=== PATIENT | male | born 1940 | race Caucasian/White ===

== ENCOUNTER 2018-03-23 11:11 | Outpatient (REF) | payer MEDICARE, OTHER, SELFPAY ==
[2018-03-23 13:39] LABS: Bilirubin Negative (Negative); Blood Negative (Negative); Clarity Clear; Glucose Negative (Negative); Ketones Negative (Negative); Leukocyte Esterase Negative (Negative); Nitrite Negative (Negative); Specific Gravity 1.015 (1.005-1.025); Urobilinogen 0.2 EU/dL (Up TO 0.2); pH 7.5 (5-8)
== END 2018-03-23 11:31 ==
LOC: LBN 11:11
PROVIDERS: PCP General Practice; Visit Provider General Practice
DX: N39.0 Urinary tract infection, site not specified (principal)
CPT/HCPCS: 81003; 87086

== ENCOUNTER 2018-06-11 00:10 | Outpatient (CLI) | payer MEDICARE, OTHER, SELFPAY ==
[2018-06-11 10:22] LABS: CREATININE 1.11 mg/dL (0.70-1.30)
[2018-06-11] MEDS: Gadoterate meglumine 20 ML VIAL 10 ML IVP (11:08)
--- NOTE | 2018-06-11 11:18 | DI.MRI_ITS ---
SYMPTOM/DIAGNOSIS: RADIATING PAIN, RT LOWER EXTREMITY, R52 LUMBAR SPINE MRI: Comparison is made with 11/16/15. T 1, T 2 and STIR sagittal, T 1 and T 2 axial and pre and post contrast Dotarem fat suppressed T 1 axial and sagittal sequences were performed. The exam is limited by patient motion. There are no abnormal areas of enhancement post Dotarem. The conus medullaris appears intact. The marrow signal is normal. Old mild compression deformities are again noted at T 11 and T 12. There is severe loss of disc height and prominent endplate osteophytes at L 1-2. There is severe neural foraminal narrowing. At L 2-3, there is a right sided disc protrusion, similar to the previous exam. There is severe bilateral neural foraminal narrowing secondary to a combination of degenerative disc changes and facet degenerative changes. There is severe loss of disc height and prominent broad based endplate osteophytes at L 3-4. Facet degenerative changes combine with the degenerative disc changes to produce severe bilateral neural foraminal narrowing and mild central canal stenosis. Broad based disc bulging and prominent facet degenerative changes are noted at L 4-5, causing severe neural foraminal narrowing. There is moderate central canal stenosis. At L 5-S 1, the disc shows mild bulging. Facet degenerative changes cause bilateral neural foraminal encroachment. IMPRESSION: Severe multi level neural foraminal narrowing secondary to a combination of degenerative disc changes and facet degenerative changes. Stable right sided disc herniation at L 2-3.
== END 2018-06-11 00:30 ==
PROVIDERS: PCP General Practice; Visit Provider General Practice
DX: M79.661 Pain in right lower leg (principal); M51.17 Intervertebral disc disorders with radiculopathy, lumbosacral region; Z13.89 Encounter for screening for other disorder
CPT/HCPCS: 36415; 72158; 82565

== ENCOUNTER 2018-07-11 09:31 | Outpatient (CLI) | payer MEDICARE, OTHER, SELFPAY ==
--- NOTE | 2018-07-11 06:00 | DI.RAD_ITS ---
SYMPTOMS/DIAGNOSIS: LUMBAR RADICULOPATHY, TRANSFORAMINAL EPIDURAL STEROID INJECTION C-ARM FLUOROSCOPY: Fluoroscopy Time: 30.9sec, 14.5mgy C-arm fluoroscopy was utilized by Dr. Vizcaino during reported epidural steroid injection. Hardcopy shows needle placement posteriorly at the L 5 - S 1 level.
[2018-07-11 09:46] VITALS: BP 144/84; PULSE 69; RESP 18; TEMP 36.8; O2SAT 97
--- NOTE | 2018-07-11 10:41 | PDOC.PAIN ---
Pain Clinic Procedure Note Current Active Problems Problem Status Onset Lumbar back pain with radiculopathy affecting left lower extremity Chronic EPIDURAL STEROID WITH CATHETER INJECTION PROCEDURE NOTE COMMENTS: Back and lower extremity pain to his feet bilaterally. He recently had an MRI which showed severe multilevel neural foraminal narrowing. This is worse at the L4-5 level. He has had previous back surgery by Dr. Shepard. He previously had a transforaminal injection in 2017 recall. He did have sedation at that time. LINDA CAO has been referred to the [facility] for lumbar epidural steroid injection. Patient was greeted by the nurse who verified patients name and . Patient was then taken to the fluoroscopy suite. Patient was interviewed and the medical record reviewed. There were no medical, pharmacologic, radiographic, or other structural contraindications to attempting fluoroscopically guided lumbar epidural steroid injection. Risks and expected side effects as well as potential benefits of the procedure were reviewed and voiced concerns addressed. The patient consent form was signed and witnessed. Standard time-out procedure was performed. Patient was placed in the prone position on the fluoroscopy table and automated blood pressure cuff and pulse oximeter applied. The skin entry point for entering/approaching the epidural space by a {L5-S1} and marked. Following thorough chlorhexadine preparation of the skin and draping and 1% lidocaine infiltration of the skin entry point and subcutaneous tissues, a 17 gauge Touhy needle was placed under fluoroscopic guidance and with loss of resistance technique into the epidural space. Needle tip placement and depth were aided and confirmed by fluoroscopy. There was no paresthesia or return of blood or CSF through the needle. 1/2 ml omnipaque 240 was injected and the patient experienced severe pain. He then yelled for which I did. Neurologically he was intact. The procedure was aborted. Vital signs were stable throughout the procedure and were as recorded in nursing records. Follow up plans and appointments were discussed.Post procedure instruction was given as documented in nursing records and having met discharge criteria and was discharged from the [facility]. COMMENTS: I brought the patient into my office. I offered to repeat this using sedation. He said this did not work last time and that the also remembers screaming during the procedure. Patient was not very anxious and hyperventilating. He is planning on seeing Dr. Shepard months to consider surgery. If he does not have surgery we would have to try the injection again with sedation is unclear if he would be able to tolerate it. He appeared to be having a panic attack. I did call Dr. Villagomez, his PCP as well as Dr. Shepard to see if he can get in sooner. I have ordered a Medrol Dosepak for him in the meantime. He does not tolerate gabapentin and opioids do not work. He was brought to the area to monitor.
[2018-07-11 10:48] VITALS: BP 169/90; PULSE 75; RESP 22; O2SAT 99
[2018-07-11] MEDS: Omnipaque 240 MG/ML 50 ML BTL IJ (10:54)
[2018-07-11 11:00] VITALS: BP 183/93; PULSE 72; RESP 28; O2SAT 98
[2018-07-11] MEDS: Lidocaine 1% Pres-Free 5 ML VIAL IJ (11:04)
[2018-07-11 11:05] VITALS: BP 171/93; PULSE 66; RESP 24; O2SAT 100
[2018-07-11 11:10] VITALS: BP 175/87; PULSE 68; RESP 28; O2SAT 99
[2018-07-11 11:20] VITALS: BP 167/86; PULSE 63; RESP 28; O2SAT 100
== END 2018-07-11 09:51 ==
PROVIDERS: PCP General Practice; Visit Provider Anesthesiology Pain Medicine
DX: M54.16 Radiculopathy, lumbar region (principal); G89.29 Other chronic pain; Z53.09 Procedure and treatment not carried out because of other contraindication; F41.9 Anxiety disorder, unspecified; M54.5 Low back pain
CPT/HCPCS: 62323; 72100; J7509; Q9967

== ENCOUNTER 2018-07-11 11:24 | Emergency (ER) | payer MEDICARE, OTHER, SELFPAY ==
[2018-07-11 11:27] VITALS: BP 179/77; PULSE 66; RESP 24; TEMP 36.4; O2SAT 99
[2018-07-11 11:35] VITALS: O2SAT 99
--- NOTE | 2018-07-11 11:35 | W.ED.GENAD ---
Discharge Plan Disposition Patient Disposition: HOME Condition: Improving Discharge Details Chief Complaint: Headache Clinical Impression: Acute exacerbation of chronic low back pain, Acute stress reaction Primary Care Provider: Johnathon Villagomez ED Provider: Raul Beckford Home Meds and New Rx's Prescriptions: Continued ranitidine HCl 150 MG capsule 150 mg PO DAILY RF: 0 ibuprofen 200 MG tablet 800 mg PO QID PRNRF: 0 tamsulosin [Flomax] 0.4 MG capsule 0.4 mg PO QAM RF: 0 allopurinol 300 MG tablet 300 mg PO QAM RF: 0 donepezil [Aricept] 10 mg Tablet 10 mg PO DAILY RF: 0 sertraline [Zoloft] 100 mg Tablet 100 mg PO DAILY RF: 0 docusate sodium [Colace] 100 mg Capsule 100 mg PO DAILY RF: 0 aspirin 81 mg Tablet,Chewable 81 mg PO DAILY RF: 0 hydrochlorothiazide 25 mg Tablet 25 mg PO DAILY RF: 0 acetaminophen [Tylenol Extra Strength] 500 mg Tablet 1,000 mg PO DAILY RF: 0 Discharge Instructions Instructions: Low Back Strain (ED), Anxiety (ED) Additional Instructions: Please pickle sorter and begin the Medrol dose pack that was prescribed by Dr Vizcaino. Please followup with Dr Shepard in clinic. Home to rest today. Return for any acute concern. Discharge Data Discharge Date/Time-TO BE ENTERED AT DEPARTURE: 07/11/18 13:21 Medical Decision Making 77-year-old male referred from pain clinic after he had significant anxiety and hyperventilation following aborted attempt at epidural steroid injection. Patient received local anesthesia and subsequently did not tolerate initiation of the procedure. He developed nausea, a mild headache, and was brought to the ED. He states is not taken his antihypertensive medications in 2 days. He arrives with a temperature of 36, pulse 66, blood pressure 179/77. He is neurologically intact with full motor and sensory of the lower extremity. Dr Vizcaino has called in a medrol dose pack and stated he would call Dr Shepard's office for close followup. The patient was given ativan 0.5mg and hydromorphone 0.5mg IV. He ate a meal. Patient felt improved. He will begin the Medrol Dosepak called in by Dr. Vizcaino, he will follow-up with Dr Shepard. Stable, improved and appropriate for discharge to home. Consistent with acute exacerbation of chronic back pain and acute stress reaction. HPI General Mode of arrival: wheelchair. Date/Time Provider Initiated Documentation: 07/11/18 11:25. Limitations to Documentation: no limitations. Information obtained by: patient. History of Present Illness 77 year old M presents to the emergency department with the chief complaint of Low back pain and adverse reaction to procedure, referred from pain clinic, described as moderate, Quality is described as aching, and is localized to the back. Patient distal. Patient started experiencing this week(s) and it has been intermittent. No relieving factors improve symptom(s), No exacerbating factors reported . Patient notes loss of appetite and weakness. Related Data Home Medications Medication Instructions Recorded Confirmed ranitidine HCl 150 mg PO DAILY tab-cap 05/15/14 07/11/18 ibuprofen 800 mg PO QID PRN 05/29/14 07/11/18 allopurinol 300 mg PO QAM 05/24/15 07/11/18 tamsulosin [Flomax] 0.4 mg PO QAM 05/24/15 07/11/18 acetaminophen [Tylenol Extra 1,000 mg PO DAILY 07/11/18 07/11/18 Strength] aspirin 81 mg PO DAILY 07/11/18 07/11/18 docusate sodium [Colace] 100 mg PO DAILY 07/11/18 07/11/18 donepezil [Aricept] 10 mg PO DAILY 07/11/18 07/11/18 hydrochlorothiazide 25 mg PO DAILY 07/11/18 07/11/18 sertraline [Zoloft] 100 mg PO DAILY 07/11/18 07/11/18 Allergies Allergy/AdvReac Type Severity Reaction Status Date / Time hydrocodone AdvReac Intermediate Hyperactive Unverified 07/11/18 11:32 General Stated Complaint: Headache POPEYE: 3 Review of Systems Review of Systems 6 systems reviewed and otherwise negative. Patient was anxious due to pain he experienced in clinic, no mood disruption at this time [facility] Medical History Depression GERD (gastroesophageal reflux disease) Gout Hypertension Surgical History Arthroscopy, Shoulder Colonoscopy - MAC Prosthesis, Penile implant Repair of umbilical hernia Social History Smoking/Tobacco Use Status: Former Tobacco Use Exam Narrative Exam Narrative: GEN: awake, alert, oriented 3. Pleasant, well groomed, interactive. HEAD: Normocephalic, atraumatic ENT: Mucous membranes moist, oropharynx unremarkable, External ear exam unremarkable EYES: PERRL, EOMI NECK: Full ROM, no DARCIE, no menigismus CHEST/RESP: Nontender, clear to auscultation bilateral, no wheeze/rhonchi/rales CARDIOVASCULAR: RRR, no murmur, rub lissette. 2+ Rad pulse bilateral ABDOMEN: Soft, nontender, no mass. +Bowel sounds Back: Nontender, no step-off or deformity EXT: Full ROM, no edema, no rash, patient intact throughout including saddle distribution. Motor 5 out of 5 bilaterally. 1+ patellar reflex bilaterally Neuro: Grossly normal neurologic exam, conversant, interactive. Psych: Speech fluent, thoughts congruent, affect anxious Course Vital Signs Temperature 36.4 C L 07/11/18 11:27 Pulse 66 07/11/18 11:27 Respiratory Rate 24 07/11/18 11:27 Blood Pressure 179/77 H 07/11/18 11:27 Pulse Oximetry 99 07/11/18 11:27 Temperature 36.4 C L 07/11/18 11:27 Temperature Source Skin 07/11/18 11:27 Pulse 66 07/11/18 11:27 Respiratory Rate 24 07/11/18 11:27 Blood Pressure 179/77 H 07/11/18 11:27 Pulse Oximetry 99 07/11/18 11:27 Oxygen Delivery Method Room Air 07/11/18 11:27 Oxygen Flow Rate 0 07/11/18 11:27 Pain Level 6 07/11/18 11:27
[2018-07-11] MEDS: LORazepam 2 MG/ML VIAL 0.5 MG IVP (11:43)
[2018-07-11 11:46] VITALS: BP 171/59; PULSE 68; O2SAT 99
[2018-07-11] MEDS: HYDROmorphone 2 MG/ML VIAL 0.5 MG IVP ×2 (11:46→12:37)
[2018-07-11] MEDS: Normal Saline 250 ML 500 ML IV (11:47)
[2018-07-11 11:51] VITALS: BP 171/59; PULSE 61; RESP 18; O2SAT 99
[2018-07-11 12:30] VITALS: RESP 20; O2SAT 96
--- NOTE | 2018-07-11 12:34 | NUR.NOTE ---
Nursing Note:Pt awake, sitting up in bed eating lunch with his .
[2018-07-11 13:05] VITALS: PULSE 80; RESP 18; O2SAT 95
== END 2018-07-11 13:21 | disposition home or self-care (01) ==
PROVIDERS: Emergency Provider Emergency Medicine; PCP General Practice
DX: M54.5 Low back pain (principal); F43.0 Acute stress reaction
CPT/HCPCS: 72100; 96374; 96375; 96376; 99284; J2060; J7509; Q9967

== ENCOUNTER → 2018-08-29 09:45 | Outpatient (BNVA) | payer MEDICARE, OTHER, SELFPAY | PROVIDERS: PCP General Practice; Referring Provider General Practice; Visit Provider Student in an Organized Health Care Education/Training Program | DX: M70.61 Trochanteric bursitis, right hip (principal) | CPT/HCPCS: 20610; 99202; 99213; J1040 ==

== ENCOUNTER 2018-09-24 08:29 | Outpatient (CLI) | payer MEDICARE, OTHER, SELFPAY ==
--- NOTE | 2018-09-24 08:16 | DI.RAD_ITS ---
SYMPTOM/DIAGNOSIS: CONTINUED RIGHT HIP PAIN, S/P ZELALEM 5 YRS AGO RIGHT HIP 09/24/18 Two views were obtained and show total hip joint replacement in position. Components appear well seated. No other bony abnormality seen.
== END 2018-09-24 08:49 ==
PROVIDERS: PCP General Practice; Referring Provider General Practice; Visit Provider Student in an Organized Health Care Education/Training Program
DX: M25.551 Pain in right hip (principal); Z96.641 Presence of right artificial hip joint
CPT/HCPCS: 99212; 99213; 73502

== ENCOUNTER 2018-09-26 09:09 | Outpatient (CLI) | payer MEDICARE, OTHER, SELFPAY ==
--- NOTE | 2018-09-26 06:00 | DI.RAD_ITS ---
SYMPTOM/DIAGNOSIS: LUMBAR RADICULOPATHY, LUMBAR EPIDURAL STEROID INJECTION C-ARM: Fluoroscopy Time: 48.4 seconds 25.66mGy Images submitted from the pain clinic demonstrate needle positioning over the right lateral border of the L 3 vertebral body in conjunction with a lumbar epidural steroid injection carried out by Dr. Vizcaino. Please see the procedure report for further information.
[2018-09-26 09:16] VITALS: BP 146/83; PULSE 98; RESP 22; TEMP 37.2; O2SAT 95
[2018-09-26] MEDS: Midazolam 2 MG/2 ML VIAL IVP ×2 (09:52→09:57)
[2018-09-26] MEDS: Lactated Ringers 1,000 ML 80 ML IV (09:52)
[2018-09-26 10:04] VITALS: BP 185/91; PULSE 90; RESP 20; O2SAT 98
[2018-09-26] MEDS: methylPREDNISolone ACETATE 40 MG/ML VIAL IJ (10:06)
[2018-09-26] MEDS: Omnipaque 240 MG/ML 50 ML BTL IJ (10:06)
[2018-09-26] MEDS: Bupivacaine 0.5% Pres-Free 10 ML VIAL IJ (10:08)
--- NOTE | 2018-09-26 10:22 | PDOC.PAIN ---
Pain Clinic Procedure Note Current Active Problems Problem Status Onset Lumbar back pain with radiculopathy affecting left lower extremity Chronic LUMBAR / SACRAL TRANSFORAMINAL INJECTION LINDA CAO has been referred to the [facility] for a transforaminal nerve root block and steroid injection. COMMENTS: At the right at L3-4 and 4 5 with right leg pain to the knee. He had previous transforaminal injection in 2017 at L3 which gave him good relief. He needed IV sedation for that. Last time he was here it was tried without sedation we had to abort the procedure. Patient was interviewed and the medical record reviewed. There were no medical, pharmacologic, radiographic or other structural contraindications to attempting fluoroscopically guided transforaminal nerve root block and epidural steroid injection. Risks and expected side effects as well as potential benefit of the procedure were reviewed and voiced concerns addressed. The printed consent form was signed and witnessed. Standard time-out procedure was performed. Patient was placed in the prone position on the fluoroscopy table and automated blood pressure cuff and pulse oximeter applied. Fluoroscopy was utilized to identify the {right} neural foramen between L3 and 4 A skin criss was made for the needle insertion site. A Chlorhexadine prep was carried out, and sterile drapes were applied. Local anesthesia was achieved in the skin and subcutaneous tissues. A 22 gauge curved tip spinal needle was then inserted, advanced with fluoroscopic guidance into the neural foramen, confirmed on the lateral view. After negative aspiration, 2 ml of Omnipaque 240 was injected confirming position in A/P and lateral views. This showed a good spread of dye transforaminally into the epidural space. There was no vascular update with contrast injection under continuous fluoroscopy and digital substraction. 40 mg of Depo-Medrol was injected, followed by 0.5 ml of 0.5% bupivacaine flush for the nerve root block, as well. There was no unusual discomfort expressed.The needle was withdrawn. The patient tolerated the procedure well. A Band-Aid was applied. Vital signs were stable throughout the procedure and were as recorded in nursing records. If given, dosages of intravenous drugs for anxiolysis and analgesia were documented in nursing records. Follow up plans and appointments were discussed. Post procedure instruction was given as documented in nursing records and patient was discharged in the care of an identified delivery route driver. COMMENTS: Versed 2 mg given. Would repeat as needed or consider an L4?5 transforaminal injection on the right CC: Johnathon Villagomez
--- NOTE | 2018-09-26 10:25 | PDOC.PAIN_ITS ---
Pain Clinic Procedure Note Current Active Problems Problem Status Onset Lumbar back pain with radiculopathy affecting left lower extremity Chronic LUMBAR / SACRAL TRANSFORAMINAL INJECTION LINDA CAO has been referred to the [facility] for a transforaminal nerve root block and steroid injection. COMMENTS: At the right at L3-4 and 4 5 with right leg pain to the knee. He had previous transforaminal injection in 2017 at L3 which gave him good relief. He needed IV sedation for that. Last time he was here it was tried without sedation we had to abort the procedure. Patient was interviewed and the medical record reviewed. There were no medical, pharmacologic, radiographic or other structural contraindications to attempting fluoroscopically guided transforaminal nerve root block and epidural steroid injection. Risks and expected side effects as well as potential benefit of the procedure were reviewed and voiced concerns addressed. The printed consent form was signed and witnessed. Standard time-out procedure was performed. Patient was placed in the prone position on the fluoroscopy table and automated blood pressure cuff and pulse oximeter applied. Fluoroscopy was utilized to identify the {right} neural foramen between L3 and 4 A skin criss was made for the needle insertion site. A Chlorhexadine prep was carried out, and sterile drapes were applied. Local anesthesia was achieved in the skin and subcutaneous tissues. A 22 gauge curved tip spinal needle was then inserted, advanced with fluoroscopic guidance into the neural foramen, confirmed on the lateral view. After negative asp iration, 2 ml of Omnipaque 240 was injected confirming position in A/P and lateral views. This showed a good spread of dye transforaminally into the epidural space. There was no vascular update with contrast injection under continuous fluoroscopy and digital substraction. 40 mg of Depo-Medrol was injected, followed by 0.5 ml of 0.5% bupivacaine flush for the nerve root block, as well. There was no unusual discomfort expressed.The needle was withdrawn. The patient tolerated the procedure well. A Band-Aid was applied. Vital signs were stable throughout the procedure and were as recorded in nursing records. If given, dosages of intravenous drugs for anxiolysis and analgesia were documented in nursing records. Follow up plans and appointments were discussed. Post procedure instruction was given as documented in nursing records and patient was discharged in the care of an identified wheat combine driver. COMMENTS: Versed 2 mg given. Would repeat as needed or consider an L4?5 transforaminal injection on the right CC: Johnathon Villagomez
== END 2018-09-26 09:29 ==
PROVIDERS: PCP General Practice; Visit Provider Anesthesiology Pain Medicine
DX: M54.16 Radiculopathy, lumbar region (principal)
CPT/HCPCS: 64483; 72100; J1030; J2250; Q9967

== ENCOUNTER 2018-10-02 08:36 | Outpatient (CLI) | payer MEDICARE, OTHER, SELFPAY ==
--- NOTE | 2018-10-02 08:50 | DI.CT_ITS ---
SYMPTOMS/DIAGNOSIS: RT HIP PAIN DESPITE TROCHANTER BURSAL INJECTION, S/P ZELALEM 5 YRS, M25.559 CT OF THE RIGHT HIP: Comparison is made with plain films dated . A right hip prosthesis is noted which creates some artifact in the surrounding bone and soft tissue. There is no evidence of fracture. No abnormal bony lucencies are visible. There is some spurring at the greater trochanter and a small amount of heterotopic calcification seen in the lateral soft tissues of the hip. No bony erosions are seen. Vascular calcifications and penial prosthesis are noted. IMPRESSION: Right hip prosthesis. Calcification is seen in the fascia lateral to the left hip, consistent with post surgical calcifications.
== END 2018-10-02 08:56 ==
PROVIDERS: PCP General Practice; Visit Provider Physician Assistant
DX: M25.551 Pain in right hip (principal); Z96.641 Presence of right artificial hip joint
CPT/HCPCS: 73700

== ENCOUNTER 2018-10-23 08:43 | Outpatient (CLI) | payer MEDICARE, OTHER, SELFPAY ==
--- NOTE | 2018-10-23 13:17 | W.PREOPHP ---
Date of service: 10/23/18 Time of Service: 08:18 Assessment and Plan (1) Trochanteric bursitis of right hip: Current visit: No Status: Acute recalcitrant right trochanteric bursitis with trochanter osteophytes and heterotopic ossifications in the soft tissues warranting debridement to relieve this patient's chronic pain. The anatomy operative procedure and goals of surgery are reviewed with the patient all questions are answered to his satisfaction. 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 He had a history of an injection on 08/29/2018 of his trochanteric bursa which provided complete relief of that lateral pain. He is status post a total hip replacement performed by Dr. Beyer of the [facility] and questions why Dr. Beyer did not take care of the bursa at the time of his hip surgery. He has had x-rays as well as a CAT scan of his right hip which show greater trochanter osteophytes along with heterotopic ossifications in his hip soft tissues. Dr. Li has recommended an IT band tenotomy with debridement of osteophytes and heterotopic ossification removal to relieve his long-standing recalcitrant trochanteric bursitis. Pertinent Surgical Information 78-year-old male without a history of ischemic cardiac disease with history of mild cognitive impairment along with history of hypertension presently not requiring any prescription meds with long history of depression on multiple multiple agents at least numbering 10 years and GERD controlled with ranitidine not requiring any antiacid supplementation. Review of Systems Constitutional Denies fever(s) and Denies headache(s) ENT Denies headache(s), Denies nasal congestion, Denies nasal discharge and Denies sore throat Cardiovascular Denies chest pain, Denies chest pain with activity, Denies palpitations, Denies orthopnea and Denies paroxysmal nocturnal dyspnea Respiratory Denies cough, Denies excessive phlegm production, Denies pain on inspiration and Denies wheezing Gastrointestinal Denies abdominal pain, Denies melena, Denies hematochezia, Denies nausea and Denies vomiting Genitourinary Denies hematuria, Denies dysuria and Denies urinary frequency Comments: Denies burning sensation with urination Musculoskeletal Reports as per HPI Neurologic Denies headache(s) Psychiatric Denies anxiety and Denies depression Endocrine Denies palpitations Comments: Denies any unplanned weight changes Allergic/Immunologic Denies wheezing PFSH Medical History Gout (Chronic) Depression (Chronic) GERD (gastroesophageal reflux disease) (Inactive) Hypertension Trochanteric bursitis of right hip (Acute) 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) Cervical stenosis of spine (Chronic) Back pain (Acute) Arthritis (Chronic) Lumbar back pain with radiculopathy affecting left lower extremity (Chronic) Surgical History Arthroscopy, Shoulder Colonoscopy - MAC Repair of umbilical hernia Prosthesis, Penile implant S/P cervical spinal fusion (Acute) Social History Smoking/Tobacco Use Status: Former Tobacco Use Alcohol Intake: current Alcohol Intake frequency: a few times a week Alcohol type: beer Details: ocas beer Drug use: Never 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 Do you feel safe in your relationship?: Yes Meds Home Medications Medication Instructions Recorded Confirmed Type ranitidine HCl 150 mg PO DAILY tab-cap 05/15/14 10/23/18 History ibuprofen 600 mg PO QID PRN 05/29/14 10/23/18 History allopurinol 300 mg PO QAM 05/24/15 10/23/18 History tamsulosin [Flomax] 0.4 mg PO QAM 05/24/15 10/23/18 History acetaminophen [Tylenol Extra 1,000 mg PO DAILY 07/11/18 10/23/18 History Strength] aspirin 81 mg PO DAILY 07/11/18 10/23/18 History docusate sodium [Colace] 100 mg PO DAILY 07/11/18 10/23/18 History donepezil [Aricept] 5 mg PO DAILY 07/11/18 10/23/18 History hydrochlorothiazide 25 mg PO DAILY 07/11/18 10/23/18 History sertraline [Zoloft] 150 mg PO DAILY 07/11/18 10/23/18 History venlafaxine 150 mg PO DAILY 08/16/18 10/23/18 History aripiprazole 2 mg tablet 2 mg PO DAILY 08/29/18 10/23/18 History mirtazapine 15 mg tablet 7.5 mg PO DAILY tab 08/29/18 10/23/18 History celecoxib 200 mg capsule 200 mg PO BID #60 cap 10/10/18 10/23/18 Rx Allergies Allergy/AdvReac Type Severity Reaction Status Date / Time hydrocodone AdvReac Intermediate Hyperactive Unverified 10/23/18 09:07 Exam Const General: cooperative [facility] Throat: posterior oropharynx normal Eyes General: appearance normal, both eyes and all related structures Conjunctivae: conjunctivae normal Sclera: sclerae normal Neck Neck: no JVD Carotids: normal carotid upstroke and no bruits Resp Effort & Inspection: normal respiratory effort and able to speak in complete sentences Auscultation: clear to auscultation bilaterally, no rales, no rhonchi and no wheezes Cardio Rate: regular rate Heart Sounds: S1 normal, S2 normal and no murmurs Bruits: no abdominal aortic bruits Pulses: normal peripheral pulses Other: No pulsatile mass noted with palpation over the abdominal aorta GI Palpation: soft and no hepatosplenomegaly Auscultation: normal bowel sounds General: No CVA tenderness Extrem General: no pedal edema Other: Normal sensation to light touch. normal dp and pt pulses intact.right hip nonirritable. marked point tenderness palpating right trochanteric bursal region.
== END 2018-10-23 09:03 ==
PROVIDERS: PCP General Practice; Visit Provider Student in an Organized Health Care Education/Training Program
DX: M70.61 Trochanteric bursitis, right hip (principal); I10 Essential (primary) hypertension; Z01.810 Encounter for preprocedural cardiovascular examination
CPT/HCPCS: 93005; 93010

== ENCOUNTER 2018-10-30 07:54 | Day surgery (SDC) | payer MEDICARE, OTHER, SELFPAY ==
[2018-10-23 09:09] VITALS: BP 130/70; PULSE 79; RESP 16; TEMP 36.7; O2SAT 97
[2018-10-30] VITALS (7 sets, daily range): BP systolic 147–162; BP diastolic 57–85; PULSE 68–83; RESP 16–22; TEMP 35.9–36.7; O2SAT 94–100
[2018-10-30] MEDS: Lactated Ringers 1,000 ML 80 ML IV (08:46)
[2018-10-30] MEDS: ceFAZolin 2 GM/50 ML BAG IVPB (09:23)
[2018-10-30] MEDS: Bupivacaine 0.25% Pres-Free 30 ML VIAL (10:15)
--- NOTE | 2018-10-30 10:38 | PDOC.DSDIS_ITS ---
Discharge Plan Disposition Patient Disposition: HOME Condition: Good Discharge Details Reason For Visit: R Trochanteric Bursitis, Osteophytes Attending Provider: Bryce Li Primary Care Provider: Johnathon Villagomez Home Meds and New Rx's Prescriptions: New acetaminophen 500 mg tablet 1,000 mg PO Q8H PRN (Reason: pain) Qty: 90 RF: 3 hydromorphone 2 mg tablet 2 mg PO Q4H PRN (Reason: pain) Qty: 18 RF: 0 ibuprofen 600 mg tablet 600 mg PO TID PRNQty: 90 RF: 3 Continued aripiprazole [Abilify] 2 mg tablet 2 mg PO DAILY RF: 0 mirtazapine 15 mg tablet 7.5 mg PO DAILY RF: 0 venlafaxine 150 mg Capsule,Extended Release 24hr 150 mg PO DAILY RF: 0 ranitidine HCl 150 MG capsule 150 mg PO DAILY RF: 0 tamsulosin [Flomax] 0.4 MG capsule 0.4 mg PO QAM RF: 0 allopurinol 300 MG tablet 300 mg PO QAM RF: 0 donepezil [Aricept] 10 mg Tablet 5 mg PO DAILY RF: 0 sertraline [Zoloft] 100 mg Tablet 150 mg PO DAILY RF: 0 docusate sodium [Colace] 100 mg Capsule 100 mg PO DAILY RF: 0 aspirin 81 mg Tablet,Chewable 81 mg PO DAILY RF: 0 hydrochlorothiazide 25 mg Tablet 25 mg PO DAILY RF: 0 Discontinued celecoxib [Celebrex] 200 mg capsule 200 mg PO BID Qty: 60 RF: 0 ibuprofen 200 MG tablet 600 mg PO QID PRNRF: 0 acetaminophen [Tylenol Extra Strength] 500 mg Tablet 1,000 mg PO DAILY RF: 0 Discharge Instructions Additional Instructions: Activity: You may move and walk as tolerated but always use two crutches or a walker until instructed otherwise to offload the hip to allow quicker healing. You should try to take short walks a few times a day. You have no restrictions on movement or positioning, but do not try to force what you do. You will find some stiffness and weakness. Do not try to strengthen this too early, continue to practice walking. - Outpatient physical therapy can be helpful to help return you to a normal gait and improve your flexibility and strength. This can start around 2 weeks. For some patients, it?s not necessary. Usually this is determined at the time of first post-operative visit. Dressing: Keep the surgical dressing in place for at least one week. After the first week it may be removed and replace with light gauze and tape or nothing. It may get wet after 3 days but avoid soaking the dressing. If it gets wet, just lightly pat dry. Medications: - You should take Tylenol and an anti-inflammatory Ibuprofen as your primary pain control medications - You have been prescribed a stronger pain medication Hydromorphone for breakthrough pain, take as needed as prescribed. - If you have constipation you should take Colace or Miralax (both [id number]). It takes most people 3-4 days to have a bowel movement. Follow-up: 2 weeks Referrals: Bryce Li MD [ [facility] STAFF PHYSICIAN] - Equipment/Supplies: Partial Weight Bearing Crutches Activity:: Activity as Tolerated Remove Dressings/Wound Care:: 72 hours Shower/Bathe:: 72 hours Diet:: As Tolerated Discharge Orders Discharge Orders: Discharge Order (Routine); Ordered 10/30/18 Ordered By: Bryce Li DS: Diagnosis Discharge Diagnosis (1) Trochanteric bursitis of right hip: Status: Acute
[2018-10-30] MEDS: HYDROmorphone 2 MG/ML VIAL IVP ×4 (11:00→11:47)
[2018-10-30] MEDS: fentaNYL 100 MCG/2 ML VIAL IVP ×2 (11:05→11:15)
[2018-10-30] MEDS: Acetaminophen 325 MG TAB 650 MG PO (12:44)
[2018-10-30] MEDS: HYDROmorphone 2 MG TAB PO (12:44)
--- NOTE | 2018-10-31 06:57 | ROE_ITS ---
Date of service: 10/30/18 Time of Service: 14:48 Operative Note DATE OF PROCEDURE: 10/30/18 PRE-OP DIAGNOSIS: Right Recalcitrant Trochanteric Bursitis, Heterotopic Ossification POST-OP DIAGNOSIS: same PROCEDURE: Open Debridement/Excision of RIGHT Trochanteric Bursa, Ostectomy of Trochanteric Osteophytes, Excision of Heterotopic Ossification SURGEON: Bryce Li COMPUT[employer] SYSTEM[employer] SOFTWARE ARCHITECT: Mina Richardson ANESTHESIA: GETA ESTIMATED BLOOD LOSS: 50 PATHOLOGY: none sent COMPLICATIONS: None Patient was transported to: PACU Patient's condition: stable Indications: Scot is a 78-year-old male who I have seen for recurrent symptoms of lateral hip pain. A diagnosis of trochanteric bursitis was made. He has had previous hip replacement surgery as well as trochanteric bursal excision with IT band tenotomy. While his symptoms were consistent with trochanteric bursitis, he also had symptoms which seem to be quite different and his CT scan showed multiple osteophytes arising from the greater trochanter as well as heterotopic ossification of the soft tissue surrounding. Conservative treatment options were employed first. However, pain continued. After failure of conservative treatment options, I recommended surgical intervention. I reviewed the technical details of the surgery. I reviewed the risk of the surgery to include bleeding, infection, pain, stiffness, damage to nerves and vessels, damage to muscles and tendons, blood clot. Despite these risks, the patient desired to proceed. Findings: The iliotibial band was identified well retracted away from the greater trochanter with at least 8 cm of separation between longitudinal bands anteriorly and posteriorly. The bursa was inflamed and excised and debrided. Multiple bony projections were palpated off of the greater trochanter. These were debrided down to a smooth stable base. There was also for 5 areas of bone within the abductor tendons which was excised without compromising the tendon insertion. Procedure Description: Scot was greeted in the preoperative holding area. The identity was confirmed with the correct site and side. The consent was reviewed with the patient and signed. History and physical was updated. The patient was taken back to the operating room. A general anesthetic was administered. The patient was then positioned into the left lateral decubitus position for access to the left hip. All bony prominences well-padded. The left hip was prepped with ChloraPrep and draped in a standard fashion. Prophylactic antibiotics in the form of cefazolin were administered. A timeout was performed for safe surgery. An approximately 10 cm incision was made overlying the posterior lateral hip using previous incision. Bleeding was stopped with light cautery. The iliotibial band was identified and cleared for better visualization. It was noted to be quite taut against the lateral femur. The iliotibial band was not really present. There is a slight thin veil of tissue the fat from the lateral edge of the greater trochanter. The greater trochanter was easily palpable after initial dissection. The remnant iliotibial band was palpated anteriorly and posteriorly the greater trochanter. This tissue was then incised longitudinally extending into the gluteus fascia and extending distally along the IT band. This was split bluntly and a Charnley retractor was inserted. We had excellent visualization of the lateral femur and the trochanteric bursa. There was notable bursitis with an enlarged and inflamed bursa. This was excised sharply with electrocautery and remnants debrided with a rongeur. Once this was fully removed we had excellent visualization of the insertion of the abductor tendons. They were inspected both visually and by palpation on both the lateral and medial surfaces. There appeared to be some atrophy of the anteriormost insertion of the gluteus medius. There is no notable tearing of the abductor tendons. There was palpable bony inclusions within the abductor tendons both gluteus minimus and medius. The gluteus medius was split long itudinally to access the deeper portions. This was done to ensure no partial tearing and also to debride the undersurface of the abductor tendons which did have a significant amount of inflammatory debris. Working within this incision I was able to remove heterotopic ossification from the gluteus minimus tendon. Other areas of heterotopic ossification from within the gluteus medius were removed, most approximately 4 to 5 mm in diameter. Once these were removed, I used a rongeur and a rasp to remove osteophytes from the greater trochanter. There are no notable sharp projections of the trochanter at this time. The remnant IT band was tight but it was separate far off of the greater trochanter. It was hard to reproduce this tight remnant band is causing issues, although it is possible. However, given the defect already over the lateral trochanter I chose not to perform any transverse release of the IT band. The deep structures were then thoroughly irrigated. The deep tissues were injected with a mixture of 0.5% bupivacaine and 20 cc of Exparel L. The iliotibial band remnant was then closed with a #1 Vicryl. Once again the deep tissues and iliotibial band were injected with the remainder of the bupivacaine Exparel cocktail. The wound was thoroughly irrigated. The deep tissues were closed with 0 Vicryl followed by 2-0 Vicryl. The skin was closed with a 4-0 Monocryl in a running subcuticular fashion which was reinforced with skin glue and Steri-Strips. The wound was dressed with Mepilex silver dressing. At the end of the case all counts are correct. The patient was transitioned back into the supine position. There were no notable complications. The patient was transferred to the PACU in stable condition.
== END 2018-10-30 13:41 | disposition home or self-care (01) ==
PROVIDERS: PCP General Practice; Visit Provider Student in an Organized Health Care Education/Training Program
PROC: (CPT 27048; principal; 2018-10-30 09:45)
DX: M70.61 Trochanteric bursitis, right hip (principal); M61.58 Other ossification of muscle, other site; M25.751 Osteophyte, right hip; M25.551 Pain in right hip; I10 Essential (primary) hypertension; I25.9 Chronic ischemic heart disease, unspecified; F32.9 Major depressive disorder, single episode, unspecified; K21.9 Gastro-esophageal reflux disease without esophagitis
CPT/HCPCS: 27048; 27355; 27062; J0360; J0690; J1100; J1885; J2405; J3010

== ENCOUNTER → 2018-11-14 14:25 | Outpatient (BNVA) | payer MEDICARE, OTHER, SELFPAY | PROVIDERS: PCP General Practice; Referring Provider General Practice; Visit Provider Student in an Organized Health Care Education/Training Program | DX: M70.61 Trochanteric bursitis, right hip (principal); Z47.89 Encounter for other orthopedic aftercare; I10 Essential (primary) hypertension ==

== ENCOUNTER → 2018-12-19 07:58 | Outpatient (BNVA) | payer MEDICARE, OTHER, SELFPAY | PROVIDERS: PCP General Practice; Referring Provider General Practice; Visit Provider Student in an Organized Health Care Education/Training Program | DX: M70.61 Trochanteric bursitis, right hip (principal); Z47.89 Encounter for other orthopedic aftercare; I10 Essential (primary) hypertension ==

== ENCOUNTER 2019-01-24 07:44 | Outpatient (CLI) | payer MEDICARE, OTHER, SELFPAY ==
[2019-01-24 07:54] VITALS: BP 143/72; PULSE 60; RESP 18; TEMP 36.4; O2SAT 97
[2019-01-24] MEDS: Midazolam 2 MG/2 ML VIAL IVP ×2 (08:26→08:31)
[2019-01-24] MEDS: Lactated Ringers 1,000 ML 80 ML IV (08:27)
[2019-01-24] MEDS: Omnipaque 240 MG/ML 50 ML BTL IJ (08:36)
[2019-01-24] MEDS: methylPREDNISolone ACETATE 80 MG/ML VIAL IM (08:36)
[2019-01-24 08:37] VITALS: BP 163/71; PULSE 69; RESP 19; O2SAT 96
--- NOTE | 2019-01-24 08:37 | DI.RAD_ITS ---
SYMPTOM/DIAGNOSIS: LUMBAR RADICULOPATHY C-ARM FLUOROSCOPY: 01/24 Fluoroscopy Time: 24.1 sec, 6.97 mGy C-arm fluoroscopy was utilized by Dr. Knight. Please see Dr. Knight's procedure note. Hard copy shows midline injection posteriorly at the L-5 level.
--- NOTE | 2019-01-24 08:37 | PDOC.PAIN_ITS ---
Pain Clinic Procedure Note Current Active Problems Problem Status Onset Lumbosacral radiculopathy CUADAL EPIDURAL STEROID WITH CATHETER INJECTION PROCEDURE NOTE COMMENTS: He is having bilateral leg symptoms in the L4 distribution. He has had lumbar surgery and has a large vertical scar to this lumbar area. He also has a history of having a vaso vagal reaction to a procedure. These are why we did a caudal POPEYE and used IV Versed. He understands and does consent. LINDA CAO has been referred to the [facility] for lumbar epidural steroid injection. Patient was greeted by the nurse who verified patients name and . Patient was then taken to the fluoroscopy suite. Patient was interviewed and the medical record reviewed. There were no medical, pharmacologic, radiographic, or other structural contraindications to attempting fluoroscopically guided lumbar epidural steroid injection. Risks and expected side effects as well as potential benefits of the procedure were reviewed and voiced concerns addressed. The patient consent form was signed and witnessed. Standard time-out procedure was performed. Patient was placed in the prone position on the fluoroscopy table and automated blood pressure cuff and pulse oximeter applied. The skin entry point for ent ering/approaching the epidural space at the sacral hiatus and marked. Following thorough chlorhexadine preparation of the skin and draping and 1% lidocaine infiltration of the skin entry point and subcutaneous tissues, a 17 gauge Touhy needle was placed under fluoroscopic guidance and with loss of resistance technique into the epidural space. Needle tip placement and depth were aided and confirmed by fluoroscopy. There was no paresthesia or return of blood or CSF through the needle. An Arrow cath was thread to the L4 vertebral body and 1 cc's of Omnipaque 240 was injected with clear epidural spread confirmed with fluoroscopy. 80mg depomedrol was injected. There was not any unusual discomfort expressed. Vital signs were stable throughout the procedure and were as recorded in nursing records. Follow up plans and appointments were discussed.Post procedure instruction was given as documented in nursing records and having met discharge criteria and was discharged from the [facility]. COMMENTS: If this procedure is effective, it can be completed up to 3 times per 12 months.
== END 2019-01-24 08:04 ==
PROVIDERS: PCP General Practice; Visit Provider Preventive Medicine Occupational Medicine
DX: M54.17 Radiculopathy, lumbosacral region (principal)
CPT/HCPCS: 64483; 72100; J1040; J2250; Q9967

== ENCOUNTER → 2019-02-14 07:55 | Outpatient (BNVA) | payer MEDICARE, OTHER, SELFPAY | PROVIDERS: PCP General Practice; Referring Provider General Practice; Visit Provider Student in an Organized Health Care Education/Training Program | DX: M70.61 Trochanteric bursitis, right hip (principal); Z47.89 Encounter for other orthopedic aftercare; I10 Essential (primary) hypertension ==

== ENCOUNTER 2019-02-27 09:11 | Outpatient (CLI) | payer MEDICARE, OTHER, SELFPAY ==
--- NOTE | 2019-02-25 16:32 | DI.RAD_ITS ---
INDICATION: PAIN COMPARISON: No exams were available for comparison TECHNIQUE: 2D digital imaging was performed. FINDINGS: Three views were obtained. There is mild narrowing of medial tibiofemoral cartilage joint space. Th ere are prominent enthesophytes of the patella. Minimal marginal osteophytes noted at multiple sites . No other significant bony abnormality seen. IMPRESSION: Mild DJD of the knee as described above
--- NOTE | 2019-02-25 16:32 | DI.RAD_ITS ---
INDICATION: Pain COMPARISON: No exams were available for comparison TECHNIQUE: 2D digital imaging was performed. FINDINGS: Three views were obtained. There is mild narrowing of the medial tibiofemoral cartilaginous joint sp franco. Prominent hypertrophic spurring of the patella is noted at the tendon sites. Prominent anterio r tibial osteophyte also noted. No other significant bony abnormality seen. IMPRESSION: DJD as described above.
== END 2019-02-27 09:31 ==
PROVIDERS: PCP General Practice; Visit Provider General Practice
DX: M25.561 Pain in right knee (principal); M17.0 Bilateral primary osteoarthritis of knee; M25.562 Pain in left knee
CPT/HCPCS: 73562

== ENCOUNTER → 2019-03-15 08:47 | Outpatient (BNVA) | payer MEDICARE, OTHER, SELFPAY | PROVIDERS: PCP General Practice; Referring Provider General Practice; Visit Provider Student in an Organized Health Care Education/Training Program | DX: M25.562 Pain in left knee (principal); M25.561 Pain in right knee; I10 Essential (primary) hypertension | CPT/HCPCS: 20610; 99214; J1040 ==

== ENCOUNTER 2019-03-27 01:36 | Outpatient (CLI) | payer MEDICARE, OTHER, SELFPAY ==
--- NOTE | 2019-03-27 10:45 | DI.MRI_ITS ---
EXAM: MR LOWER JOINT LT WO CLINICAL HISTORY: ?ON of knee, pain of knee, ? AVN or insufficiency, fx. TECHNIQUE: Multiplanar multisequence MRI was performed. COMPARISON: XR KNEE LT 3V AP,LAT,CHRIS from 02/25/2019 FINDINGS: There is a normal quantity of joint fluid. There is a small Santos's cyst. There is some fluid wit hin the anterior cruciate ligament but no evidence of a full-thickness tear. The posterior cruciate ligament, medial and lateral collateral ligaments and extensor mechanism appear intact. There spurri ng and calcification in the distal quadriceps tendon. There is also spurring at the tibial tubercle. There is intrasubstance degenerative signal in the menisci. No meniscal tear is seen. There is ca rtilage thinning extending down to bone involving the lateral aspect of the medial femoral condyle. Mild cartilage irregularity is seen over both femoral condyles. The patellar cartilage also shows th inning and irregularity. There is no evidence of fracture. The marrow signal appears normal. 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 Moderate chondromalacia of the patellofemoral joint. No evidence of fracture. Small Santos's cyst. Question of an ACL sprain.
== END 2019-03-27 01:56 ==
PROVIDERS: PCP General Practice; Visit Provider Student in an Organized Health Care Education/Training Program
DX: M25.562 Pain in left knee (principal); M94.262 Chondromalacia, left knee; M22.42 Chondromalacia patellae, left knee; M71.22 Synovial cyst of popliteal space [Baker], left knee
CPT/HCPCS: 73721

== ENCOUNTER → 2019-04-01 14:39 | Outpatient (BNVA) | payer MEDICARE, OTHER, SELFPAY | PROVIDERS: PCP General Practice; Referring Provider General Practice; Visit Provider Student in an Organized Health Care Education/Training Program | DX: M54.17 Radiculopathy, lumbosacral region (principal); M17.12 Unilateral primary osteoarthritis, left knee | CPT/HCPCS: 99214 ==

== ENCOUNTER 2019-04-17 01:58 | Outpatient (CLI) | payer MEDICARE, OTHER, SELFPAY ==
--- NOTE | 2019-04-17 09:45 | DI.MRI_ITS ---
EXAM: MR LUMBAR SPINE WO CLINICAL HISTORY: lumbosacral radiculopathy, M54.17, ?worsening spinal/foraminal stenosis, PAIN DOWN LT LEG. TECHNIQUE: Multiplanar multisequence MRI was performed. MR examination of the lumbosacral spine was performed according to the usual protocol. COMPARISON: MR lumbar spine wo/w from 06/11/2018 FINDINGS: There are very prominent hypertrophic facet changes, particularly in the lower lumbar region, at L4-5 and L5-S1 bilaterally. No significant bony signal abnormality seen in the regions surveyed. There is multilevel disc space, narrowing most marked at L1-2, L2-3 and L3-4 consistent with disc degenerat ion. There is multilevel disc bulge. Conus medullaris appears intact. At L1-2 there is a prominent disc bulge with borderline central canal spinal stenosis. There is bila teral neural foraminal stenosis. At L2-3 there is a prominent disc bulge and mild superimposed right disc herniation which extends bel ow the disc level with moderate central canal spinal stenosis. There is bilateral neural foraminal s tenosis. At L3-4 there is mild disc bulge with borderline central canal spinal stenosis and bilateral neural f oraminal stenosis. At L4-5 there is narrowing of the spinal canal in the lateral dimension secondary to facet hypertroph y and there is mild central canal spinal stenosis. There is bilateral neural foraminal stenosis also noted. At L5-S1 facet hypertrophy and disc bulge combine to cause mild central canal spinal stenosis and carmen ateral neural foraminal stenosis. IMPRESSION: Multilevel spinal stenosis and neural foraminal stenosis as described above. In comparison with Decem arnaldo 2018, there is little interval change in appearance since that time. Probably stable right-sided disc herniation again noted at L2-3.
== END 2019-04-17 02:18 ==
PROVIDERS: PCP Family Medicine; Visit Provider Student in an Organized Health Care Education/Training Program
DX: M54.17 Radiculopathy, lumbosacral region (principal); M79.605 Pain in left leg; M48.07 Spinal stenosis, lumbosacral region; M51.17 Intervertebral disc disorders with radiculopathy, lumbosacral region
CPT/HCPCS: 72148

== ENCOUNTER 2019-05-17 09:58 | Inpatient (IN) | payer MEDICARE, OTHER, SELFPAY ==
[2019-05-17] VITALS (41 sets, daily range): BP systolic 132–186; BP diastolic 58–84; PULSE 78–109; RESP 2–39; TEMP 36.4–38.2; O2SAT 84–94
--- NOTE | 2019-05-17 10:53 | ED.GENADUL_ITS ---
Discharge Plan Disposition Patient Disposition: [facility] INPATIENT Condition: Serious Discharge Details Chief Complaint: RespSymp Clinical Impression: Pneumonia Admit Date/Time: 05/17/19 13:43 Admit Provider: Adri Hernandez Attending Provider: Adri Hernandez Primary Care Provider: Prem Nolan ED Provider: Good Díaz Discharge Data Discharge Date/Time-TO BE ENTERED AT DEPARTURE: 05/17/19 14:48 Medical Decision Making 11:00 --78-year-old male here with cough and fever with associated shortness of breath. Concern for pneumonia. Patient hypoxic on arrival. He is responding to nasal cannula oxygen now saturating low 90s on 3 to 4 L. Plan to check blood cultures and lactate. Chest x-ray pending. We will initiate antibiotics with ceftriaxone IV and azithromycin IV. --Chest x-ray interpreted by radiology:IMPRESSION: Mild prominent interstitial markings. While this may be chronic, an acute interstitial pneumonia or edema cannot be excluded. Labs reviewed and leukocytosis noted. No lactic acidosis. Patient is hemodynamically stable. Screening ECG was reviewed and interpreted by me: Sinus rhythm 84 bpm, normal axis, no STEMI, nondiagnostic. 13:40 -- Spoke to Dr. Hernandez who will admit the patient. HPI General Mode of arrival: ambulatory . Date/Time Provider Initiated Documentation: 05/17/19 10:29 . Limitations to Documentation: no limitations . Information obtained by: patient . HPI Narrative: 78-year-old male with multiple medical problems, former remote smoker, here with chief complaint of cough. Cough has been persistent for couple months and worse over the past week. He has associated shortness of breath and chest pain that occurs when he coughs only. He has associated fever and chills. He has associated generalized weakness and fatigue since Monday. No modifiers to cough. Related Data Home Medications Medication Instructions Recorded Confirmed ranitidine HCl 150 mg PO DAILY tab-cap 05/15/14 05/17/19 allopurinol 300 mg PO QAM 05/24/15 05/17/19 tamsulosin [Flomax] 0.4 mg PO QAM 05/24/15 05/17/19 docusate sodium [Colace] 100 mg PO DAILY 07/11/18 05/17/19 donepezil [Aricept] 5 mg PO DAILY 07/11/18 05/17/19 hydrochlorothiazide 25 mg PO DAILY 07/11/18 05/17/19 aripiprazole 2 mg tablet 2 mg PO DAILY 08/29/18 05/17/19 acetaminophen 500 mg tablet 1,000 mg PO Q8H PRN #90 tab 04/12/19 05/17/19 ibuprofen 600 mg tablet 600 mg PO TID PRN #270 tab 04/12/19 05/17/19 sertraline 100 mg tablet 100 mg PO DAILY tab 04/12/19 05/17/19 Previous Rx's Medication Instructions Recorded acetaminophen 500 mg tablet 1,000 mg PO Q8H PRN #90 tab 04/12/19 ibuprofen 600 mg tablet 600 mg PO TID PRN #270 tab 04/12/19 Allergies Allergy/AdvReac Type Severity Reaction Status Date / Time acetaminophen [From Vicodin] Allergy Rash Verified 05/17/19 10:18 hydrocodone AdvReac Intermediate Hyperactive Verified 05/17/19 10:18 gabapentin [From Neurontin] AdvReac Change in Verified 05/17/19 10:18 Mental Status General Stated Complaint: RespSymp POPEYE: 3 Review of Systems All systems reviewed & are unremarkable except as noted in HPI and below Constitutional Constitutional: Reports fever(s) Cardiovascular Cardiovascular: Reports chest pain (With cough) Respiratory Respiratory: Reports cough Gastrointestinal Gastrointestinal: Denies abdominal pain [facility] Medical History Arthritis (Chronic) Back pain (Acute) Cervical stenosis of spine (Chronic) Dementia (Chronic) Depression (Chronic) GERD (gastroesophageal reflux disease) (Inactive) Gout (Chronic) Hypertension Lumbar back pain with radiculopathy affecting left lower extremity (Chronic) 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) Surgical History Arthroscopy, Shoulder Bilateral Colonoscopy - MAC Hx of bilateral hip replacements (Chronic) Prosthesis, Penile implant Repair of umbilical hernia S/P cervical spinal fusion (Acute) Trochanteric bursitis of right hip (Acute) Injection: 08/30/18 S/P IT band release with excision osteophytes: 10/30/2018 Family History Daughter Asthma Anxiety Depression Daughter Anxiety Depression Mother Depression Diabetes Hypertension Father Heart disease Social History Smoking/Tobacco Use Status: Former Tobacco Use Quit Date: 06/12/89 Tobacco: How many years used: 33 Alcohol Intake: current Alcohol Intake frequency: a few times a week Alcohol type: beer and hard liquor Details: ocas beer Drug use: Never Substance use type: does not use Adopted: No Caregiver/Support person: No Foster care: No Household members: family Housing: house Number of Children: 2 Communication Needs: None Do you need help understanding health information?: Often 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 Sexually active: Yes Do you think of yourself as: straight/heterosexual Current gender identity: male What is your relationship status?: Panel score (0-1 are the most socially isolated patients): 1 What type of physical activity do you participate in: none Seatbelt use: never Working smoke detector in home: Yes Fire extinguisher in home: Yes Carbon monox detector in home: Yes Do you feel safe at home: Yes Do you feel safe in your relationship?: Yes Exam Const General: cooperative, no acute distress and well developed HENMT Mouth: moist mucous membranes Eyes Conjunctivae: normal conjunctivae Sclera: normal sclerae Neck Neck: trachea midline and supple Resp Effort & Inspection: other (Decreased air movement secondary to pain on deep inspiration) Auscultation: clear to auscultation bilaterally, no rales, no rhonchi and no wheezes Cardio Jugular venous pressure: no JVD Rate: regular rate and not tachycardic Rhythm: regular rhythm GI Palpation: soft, not firm, no guarding, no masses, not rigid and nontender Skin General skin exam: no rashes or lesions noted Neuro General: alert, awake, oriented x3 and tone normal Extrem General: no calf tenderness and no edema Psych Appearance: grossly normal Course Vital Signs Vital signs: Vital Signs Temperature 36.4 C L 05/17/19 10:04 Pulse 85 05/17/19 10:04 Respiratory Rate 22 05/17/19 10:04 Blood Pressure 154/79 H 05/17/19 10:04 Pulse Oximetry 86 L 05/17/19 10:04 Temperature 36.4 C L 05/17/19 10:04 Temperature Source Skin 05/17/19 10:04 Pulse 85 05/17/19 10:04 Respiratory Rate 22 05/17/19 10:04 Respiratory Effort 05/17/19 10:14 Respiratory Depth Shallow 05/17/19 10:14 Blood Pressure 154/79 H 05/17/19 10:04 Blood Pressure Position Supine 05/17/19 10:04 Pulse Oximetry 86 L 05/17/19 10:04 Oxygen Delivery Method Room Air 05/17/19 10:04 Oxygen Flow Rate 0 05/17/19 10:04 Pain Level 9 05/17/19 10:04 Lab/Test Results Lab/Test Results: 05/17/19 10:47 Blood Blood Culture - Pending 05/17/19 10:47 Blood Blood Culture - Pending
--- NOTE | 2019-05-17 11:24 | DI.RAD_ITS ---
EXAM: XR CHEST 2V PA LATERAL INDICATION: cough. COMPARISON: CHEST 2 VIEWS PA,LAT from 05/24/2015 TECHNIQUE: 2D digital imaging was performed. FINDINGS: The heart is within normal limits given the AP projection. Pulmonary vasculature appears within norm al limits. There is a diffuse increased interstitial process. No focal consolidating infiltrates ar e seen. No effusion or pneumothorax is present. 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 IMPRESSION: Mild prominent interstitial markings. While this may be chronic, an acute interstitial pneumonia or edema cannot be excluded.
--- NOTE | 2019-05-17 12:25 | NUR.NOTE ---
1225- lab is bedside collecting blood cultures. Nursing Note:
[2019-05-17 12:26] LABS: Lactate 1.1 mmol/L (0.6-1.4)
[2019-05-17 12:30] LABS: Abs Immature Grans 0.09 k/cumm (0.0-0.09); HCT 39.6 % (40.0-50.0); HGB 12.9 g/dL (13.5-17.5); Mean Corp. HGB Concentration 32.6 g/dL (32.0-36.0); Mean Corpuscular Hemoglobin 32.9 pg (27.0-33.0); Mean Platelet Volume 10.7 fL (8.0-11.0); Platelet Count 348 x1000/uL (130-400); RBC 3.92 m/cumm (4.50-6.00); RBC Distribution Width 12.8 % (11.8-14.1); White Blood Cell Count 14.35 k/cumm (4.4-10.8)
[2019-05-17] MEDS: cefTRIAXone 1 GM/50 ML BAG IVPB (12:32)
[2019-05-17 12:56] LABS: ALT 17 U/L (16-63); AST 17 U/L (15-37); Albumin 3.1 g/dL (3.4-5.0); Alkaline Phosphatase 103 U/L (46-116); Anion Gap 9.9 mmol/L (3-11); BUN 15 mg/dL (7-18); Bilirubin, Total 1.3 mg/dL (0.2-1.0); CO2 25.1 mmol/L (21.0-32.0); CREATININE 0.95 mg/dL (0.70-1.30); Calcium 8.6 mg/dL (8.5-10.1); Chloride 105 mmol/L (98-107); Glucose 113 mg/dL (74-106); Potassium 3.7 mmol/L (3.5-5.1); Sodium 140 mmol/L (136-145); Total Protein 6.8 g/dL (6.4-8.2)
[2019-05-17 13:09] LABS: Absolute Eosinophil Count 0.14 k/cumm (0.0-0.7); Absolute Lymphocyte Count 1.58 k/cumm (1.2-3.4); Absolute Monocyte Count 0.72 k/cumm (0.11-0.7); Absolute Neutrophil Count 11.91 k/cumm (1.2-6.7); RBC Morphology Normal
[2019-05-17 13:10] LABS: Diff Comment Manual Differential
[2019-05-17] MEDS: AZITHROMYCIN 500 MG in Normal Saline 250 ML 250 MG IVPB (14:06)
[2019-05-17 15:03] LABS: Procalcitonin 0.1 ng/mL
[2019-05-17] MEDS: Normal Saline 1,000 ML 150 ML IV (15:14)
[2019-05-17] MEDS: Benzonatate 100 MG CAP PO ×2 (15:23→20:07)
--- NOTE | 2019-05-17 15:43 | PT.INIE ---
Date of service: 05/17/19 Time of Service: 15:14 PT Notes Visit Reasons: SEPSIS DUE TO COMMUNITY ACQUIRED PNEUMONIA Physical Therapy Inpatient Initial Evaluation Date: 05/17/2019 Referring Doctor: Adri Hernandez MD PT Orders: PT CONSULT: Limited ability Precautions: Fall. Droplet precautions. Activity as tolerated. Patient Profile/Admitting Diagnosis: Patient is a 78-year-old male who presented to the ED on 05/17/2019 with chief complaints of cough, fever, and shortness of breath. Patient is diagnosed with sepsis due to community-acquired pneumonia. 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 He was independent with all aspects of ADLs prior to admission. He did not use any assistive ambulatory device. Equipment Owned/DME: None Subjective: Patient is agreeable to a PT consult. He did express that he is a very tired and he is unsure of what he is able to do. Objective: General Observation: Patient seen resting in bed. IV in right UE. Mental Status: Alert and oriented x4 Pain: Patient reported chest pain with coughing spells ROM: Right Upper Extremity: Shoulder Flexion WFL. Shoulder abduction WFL. Elbow flexion WFL. Wrist flexion WFL. Opening and closing of hand WFL. Left Upper Extremity: Shoulder Flexion WFL. Shoulder abduction WFL. Elbow flexion WFL. Wrist flexion WFL. Opening and closing of hand WFL. Right Lower Extremity: Hip flexion WFL. Hip abduction WFL. Knee flexion WFL. Ankle dorsiflexion WFL. Ankle plantarflexion WFL. Left Lower Extremity: Hip flexion WFL. Hip abduction WFL. Knee flexion WFL. Ankle dorsiflexion WFL. Ankle plantarflexion WFL. Strength: Right Upper Extremity: Shoulder flexors 3+/5. Shoulder abductors 3+/5. Elbow flexors 3+/5. Elbow extensors 3+/5. Push Button Switch Assembler strong. Left Upper Extremity: Shoulder flexors 3+/5. Shoulder abductors 3+/5. Elbow flexors 3+/5. Elbow extensors 3+/5. Push Button Switch Assembler strong. Right Lower Extremity: Hip flexors 4-/5. Hip abductors 4-/5. Knee flexors 4-/5. Knee extensors 4-/5. Ankle dorsiflexors 4-/5. Ankle plantarflexors 4-/5. Left Lower Extremity:Hip flexors 4-/5. Hip abductors 4-/5. Knee flexors 4-/5. Knee extensors 4-/5. Ankle dorsiflexors 4-/5. Ankle plantarflexors 4-/5. Sensation: Intact as to pain and pressure on bilateral lower extremities. Bed Mobility/Transfers: Rolling moderate assist Supine to sit moderate assist Sit to supine patient refused due to extreme fatigue Sit to stand patient refused due to extreme fatigue Stand to sit patient refused due to extreme fatigue Bed to chair patient refused due to extreme fatigue Chair to bed patient refused due to extreme fatigue Gait: Unable to perform due to extreme fatigue Balance: Static Sitting: Fair Dynamic Sitting: NT Static Standing: NT Dynamic Standing: NT Special Tests: Mobility Limitations Standardized Measure [facility] 6 clicks Basic Mobility Inpatient Short Form: Raw Score: 12 CMS Score: 69% deficit Informed Consent/Education: Patient instructed in purpose of PT consult and plan of care. Assessment: Patient is a 78-year-old male who presented to the ED on 05/17/2019 with chief complaints of cough, fever, and shortness of breath. Patient is diagnosed with sepsis due to community-acquired pneumonia. Patient is significantly limited right now due to current medical diagnosis and was unable to participate in mobility assessment. He is independent with all ADL performance prior to admission. is a good support. His prognosis for regaining prior level of function is fair. Patient presents with clinical signs and symptoms consistent with current/admitting diagnoses that have resulted to mobility limitations, gait instability, generalized weakness, and impairment of motor control as demonstrated by the following impairment level findings: 1. Decreased strength to B LE major muscle groups 2. Impaired sitting/standing balance 3. Impaired activity tolerance Impairments are contributing to the following functional limitations: 1. Dependent bed mobility skills 2. Increased dependence with transfers 3. Inability to safely ambulate without assistive device and physical assistance 4. Increase completion time for mobility ADL performance 5. Increased fall risk 6. Inability to negotiate steps alone safely Patient is assessed as a 69207 moderate complexity based on the following: History: Patient is a 78-year-old male who presented to the ED on 05/17/2019 with chief complaints of cough, fever, and shortness of breath. Patient is diagnosed with sepsis due to community-acquired pneumonia. Examination: Demonstrable impairment in strength, balance, and range of motion with underlying impairments and functional limitations as documented above Presentation:Evolving Decision Makin moderate complexity Goals: Goals X1 week 1. Supine-Sit independent 2. Sit-Supine independent 3. Sit-Stand independent 4. Stand-Sit independent 5. Bed-Chair independent 6. Chair-Bed independent 7. Independent gait on level surface with use of least restrictive device for at least 300 feet without report of pain nor dyspnea 8. Independent stair negotiation while holding onto bilateral rails for at least 10 steps without report of pain nor dyspnea 9. Independent with home exercise program 10. Good static and dynamic standing balance/tolerance Plan of Care/Treatment Plan: 1-2x/day, 7 days/week x 1 week. Plan of care has been reviewed with the QUARTER SUPERVISOR providing the service under Physical Therapy direction. Initiate Physical Therapy intervention for strengthening, bed mobility, transfers, gait, stairs, balance training, use of assistive device. DISCHARGE RECOMMENDATIONS: Patient will benefit from home health PT services in order to progress mobility level using front wheeled walker, assess home safety, identify additional equipment needs, and establish a functional maintenance program that will increase ability of patient to remain at home. TREATMENT CODE/TIME: 12332 x 25 minutes beginning at 15:14 p.m. Thank you very much for this referral. Radha Copeland PT, DPT, CLT [facility] [place], [place]
--- NOTE | 2019-05-17 16:41 | HPE_ITS ---
Date of service: 05/17/19 Time of Service: 16:41 Assessment and Plan Assessment and plan (1) CAP (community acquired pneumonia): Start date: 05/17/19 Start time: 16:59 Status: Acute Assessment and plan: Mr. Putnam presents with fever, leukocytosis, chills, CXR reveals Mild prominent interstitial markings. While this may be chronic, an acute interstitial pneumonia or edema cannot be excluded. Procalcitonin negative , no cough. Lactate 1.1 Blood cultures pending Sputum pending. Doxy and azithromycin Flu swab pending. Requiring oxygen at this time 3 L ibuprofen for fever ICS, continue to monitor. Monitor in setting of possible sepsis. IVF 75 (2) Dementia: Start date: 05/17/19 Start time: 17:02 Status: Chronic Assessment and plan: Still being worked up for dementia by PCP, AAOx3. Continue abilify and aricept (3) Lumbosacral radiculopathy: Start date: 05/17/19 Start time: 17:03 Status: Acute Assessment and plan: Scheduled for Lumbarsacarol surgery on 05/23, patient unsure what type of surgery. Consult PT Monitor (4) GERD (gastroesophageal reflux disease): Start date: 05/17/19 Start time: 17:04 Status: Inactive Assessment and plan: Take Zantac will continue home regimen (5) Depression: Start date: 05/17/19 Start time: 17:04 Status: Chronic Assessment and plan: Continue zoloft. (6) Hypertension: Start date: 05/17/19 Start time: 17:04 Status: None Assessment and plan: Monitor in setting of infection continue HCTZ, monitor patient. The above case discussed with Dr. Hernandez who is in agreement. History of Present Illness History of Present Illness Chief Complaint: Pneumonia, leukocytosis, fever Narrative: 78 y.o Male with PMH of Dementia, GERD, HTN, OA, Lumbosacral radiculopathy (scheduled for surgery 05/23), presents to the [facility] ED with c/o SOB, Fever and chills. Mr. Putnam endorses problems with breathing x a couple of months, however since Monday breathing has become significantly worse to the point he could not take it anymore and went to the ED this am. He was found to be hypoxic in the ED and placed on 3-4 L increasing saturation to 90's currently 94 on 3 L , febrile at 38.2, which he states he started having fevers on Monday. Labs significant for leukocytosis of 14.35, otherwise normal. Imaging reveals mild prominent interstitial markings, while this may be chronic, an acute interstitial pneumonia or edema could not be excluded. He is being admitted to [facility] for CAP, started on azithromycin and doxycycline. Flu swab pending, blood cultures pending. At this time his lungs have crackles in lower bases, IVF decreased to 75. He does have lumbar radiculopathy with weakness to lower extremities, PT consulted. He denies cough, chest pain, n/v. He is being admitted to [facility] for further management. 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) Surgical History Arthroscopy, Shoulder Bilateral Colonoscopy - MAC Hx of bilateral hip replacements (Chronic) Prosthesis, Penile implant Repair of umbilical hernia S/P cervical spinal fusion (Acute) Trochanteric bursitis of right hip (Acute) Injection: 08/30/18 S/P IT band release with excision osteophytes: 10/30/2018 Family History Daughter Asthma Anxiety Depression Daughter Anxiety Depression Mother Depression Diabetes Hypertension Father Heart disease Social History Smoking/Tobacco Use Status: Former Tobacco Use Quit Date: 06/12/89 Tobacco: How many years used: 33 Alcohol Intake: current Alcohol Intake frequency: a few times a week Alcohol type: beer and hard liquor Details: ocas beer Drug use: Never Substance use type: does not use Adopted: No Caregiver/Support person: No Foster care: No Household members: family Housing: house Number of Children: 2 Communication Needs: None Do you need help understanding health information?: Often 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 Sexually active: Yes Do you think of yourself as: straight/heterosexual Current gender identity: male What is your relationship status?: Panel score (0-1 are the most socially isolated patients): 1 What type of physical activity do you participate in: none Seatbelt use: never Working smoke detector in home: Yes Fire extinguisher in home: Yes Carbon monox detector in home: Yes Do you feel safe at home: Yes Do you feel safe in your relationship?: Yes Meds Home Medications and Allergies Home Medications Medication Instructions Recorded Confirmed Type ranitidine HCl 150 mg PO DAILY tab-cap 05/15/14 05/17/19 History allopurinol 300 mg PO QAM 05/24/15 05/17/19 History tamsulosin [Flomax] 0.4 mg PO QAM 05/24/15 05/17/19 History docusate sodium [Colace] 100 mg PO DAILY 07/11/18 05/17/19 History donepezil [Aricept] 5 mg PO DAILY 07/11/18 05/17/19 History hydrochlorothiazide 25 mg PO DAILY 07/11/18 05/17/19 History aripiprazole 2 mg tablet 2 mg PO DAILY 08/29/18 05/17/19 History acetaminophen 500 mg tablet 1,000 mg PO Q8H PRN #90 tab 04/12/19 05/17/19 Rx ibuprofen 600 mg tablet 600 mg PO TID PRN #270 tab 04/12/19 05/17/19 Rx sertraline 100 mg tablet 100 mg PO DAILY tab 04/12/19 05/17/19 History Allergies Allergy/AdvReac Type Severity Reaction Status Date / Time acetaminophen [From Vicodin] Allergy Rash Verified 05/17/19 10:18 hydrocodone AdvReac Intermediate Hyperactive Verified 05/17/19 10:18 gabapentin [From Neurontin] AdvReac Change in Verified 05/17/19 10:18 Mental Status Exam Const General: cooperative, no acute distress and ill appearing Nutritional Appearance: obese Orientation: alert, awake and oriented x3 HENMT Head: normal to inspection Ears: hearing grossly normal bilaterally Face and sinus: normal facial exam Mouth: oral mucosae normal Eyes General: appearance normal, both eyes and all related structures Pupils: PERRL EOM: EOM intact bilaterally Neck Neck: normal visual inspection Lymphatic: no lymphadenopathy noted and no lymphedema noted Chest Chest: normal inspection of the chest Resp Effort & Inspection: abnormal respiratory effort and not able to speak in complete sentences (becomes SOB with talking alot and moving head alot) Auscultation: crackles Cardio Jugular venous pressure: no JVD Rate: regular rate Rhythm: regular rhythm GI Inspection: normal to inspection Palpation: soft and no hepatosplenomegaly Auscultation: normal bowel sounds General: deferred Skin General skin exam: no rashes or lesions noted Wounds: no wounds Neuro General: alert, awake and oriented x3 Cognition: normal cognition Extrem General: normal to inspection Other: weakness to RLE at times Psych Appearance: grossly normal Affect: normal affect Results Labs Result diagrams: 05/17/19 10:15 05/17/19 12:10 Labs: Laboratory Results - last 24 hr 05/17/19 05/17/19 05/17/19 10:15 12:10 12:10 WBC 14.35 H RBC 3.92 L Hgb 12.9 L Hct 39.6 L MCV 101.0 H MCH 32.9 MCHC 32.6 RDW 12.8 Plt Count 348 MPV 10.7 Immature Gran % 0.0 Neutrophils % 83.0 Lymphocytes % 11.0 Monocytes % 5.0 Eosinophils % 1.0 Basophils % 0.0 Absolute Neutrophils 11.91 H Absolute Lymphocytes 1.58 Absolute Monocytes 0.72 H Absolute Eosinophils 0.14 Absolute Basophils 0.00 Differential Comment Manual differential RBC Morphology Normal Sodium 140 Potassium 3.7 Chloride 105 Carbon Dioxide 25.1 Anion Gap 9.9 BUN 15 Creatinine 0.95 Estimated GFR/1.73 m2 >= 60.00 Glucose 113 H Lactate 1.1 Calcium 8.6 Total Bilirubin 1.3 H AST 17 ALT 17 Alkaline Phosphatase 103 Total Protein 6.8 Albumin 3.1 L Procalcitonin 05/17/19 12:10 WBC RBC Hgb Hct MCV MCH MCHC RDW Plt Count MPV Immature Gran % Neutrophils % Lymphocytes % Monocytes % Eosinophils % Basophils % Absolute Neutrophils Absolute Lymphocytes Absolute Monocytes Absolute Eosinophils Absolute Basophils Differential Comment RBC Morphology Sodium Potassium Chloride Carbon Dioxide Anion Gap BUN Creatinine Estimated GFR/1.73 m2 Glucose Lactate Calcium Total Bilirubin AST ALT Alkaline Phosphatase Total Protein Albumin Procalcitonin 0.1 Last Vital Signs Temp 38.2 C H 05/17/19 15:04 Pulse 94 H 05/17/19 15:04 Resp 17 05/17/19 15:04 BP 137/76 05/17/19 15:04 Pulse Ox 94 L 05/17/19 15:04
[2019-05-17] MEDS: Albuterol/Ipratropium 3 ML UPD VIAL UPD (18:40)
[2019-05-17] MEDS: guaiFENesin 600 MG TABCR PO (20:06)
[2019-05-17 23:16] LABS: Legionella Ag Detection Urine Negative (Negative)
[2019-05-18] VITALS (10 sets, daily range): BP systolic 125–180; BP diastolic 59–82; PULSE 63–90; RESP 2–20; TEMP 37.2–38.8; O2SAT 90–94
[2019-05-18] MEDS: Normal Saline 1,000 ML 150 ML IV (04:42)
[2019-05-18 07:16] LABS: Abs Immature Grans 0.12 k/cumm (0.0-0.09); HCT 39.4 % (40.0-50.0); HGB 12.8 g/dL (13.5-17.5); Mean Corp. HGB Concentration 32.5 g/dL (32.0-36.0); Mean Corpuscular Hemoglobin 32.6 pg (27.0-33.0); Mean Corpuscular Volume 100.3 fL (80-95); Mean Platelet Volume 10.4 fL (8.0-11.0); RBC 3.93 m/cumm (4.50-6.00); RBC Distribution Width 12.6 % (11.8-14.1); White Blood Cell Count 14.95 k/cumm (4.4-10.8)
[2019-05-18] MEDS: Albuterol/Ipratropium 3 ML UPD VIAL UPD ×3 (07:19→17:19)
[2019-05-18] MEDS: Ibuprofen 400 MG TAB PO ×2 (07:19→17:41)
[2019-05-18 07:34] LABS: Anion Gap 12.9 mmol/L (3-11); BUN 15 mg/dL (7-18); CO2 24.1 mmol/L (21.0-32.0); CREATININE 0.99 mg/dL (0.70-1.30); Calcium 8.6 mg/dL (8.5-10.1); Chloride 103 mmol/L (98-107); Glucose 115 mg/dL (74-106); Magnesium 1.8 mg/dL (1.8-2.4); Sodium 140 mmol/L (136-145)
[2019-05-18] MEDS: DOXYCYCLINE 100 MG in Normal Saline 100 ML IVPB (07:41)
[2019-05-18] MEDS: guaiFENesin 600 MG TABCR PO ×2 (07:42→21:24)
[2019-05-18] MEDS: Donepezil 5 MG TAB PO (07:42)
[2019-05-18] MEDS: Sertraline 50 MG TAB 100 MG PO (07:42)
[2019-05-18] MEDS: ARIPiprazole 2 MG TAB PO (07:42)
[2019-05-18] MEDS: Docusate Sodium 100 MG CAP PO (07:42)
[2019-05-18] MEDS: Tamsulosin 0.4 MG CAPCR PO (07:42)
[2019-05-18] MEDS: Allopurinol 300 MG TAB PO (07:42)
[2019-05-18] MEDS: Benzonatate 100 MG CAP PO ×3 (07:43→21:24)
[2019-05-18 08:02] LABS: Absolute Lymphocyte Count 2.24 k/cumm (1.2-3.4); Absolute Neutrophil Count 10.61 k/cumm (1.2-6.7); Atypical Lymphocytes % 1; Diff Comment Manual Differential
[2019-05-18 08:12] LABS: Platelet Count 333 x1000/uL (130-400); Polychromasia Present
[2019-05-18 09:15] LABS: Procalcitonin 0.1 ng/mL
[2019-05-18] MEDS: hydroCHLOROthiazide 25 MG TAB PO (11:06)
[2019-05-18] MEDS: cefTRIAXone 1 GM/50 ML BAG IVPB (11:07)
[2019-05-18 12:24] LABS: NT-proBNP 435 pg/mL (<300)
--- NOTE | 2019-05-18 12:28 | PT.INTREAT ---
Date of service: 05/18/19 Time of Service: 12:28 PT Notes Visit Reasons: SEPSIS DUE TO COMMUNITY ACQUIRED PNEUMONIA Inpatient Physical Therapy Treatment Note [facility] Date: 05/18/2019 PRECAUTIONS: Fall, activity as tolerated, droplet SUBJECTIVE: Scot states that he is feeling significantly better and stronger today than he was yesterday. He is agreeable to participating in PT, although he states that he still is not feeling back to baseline. OBJECTIVE: PAIN: No complaints of pain BED MOBILITY/TRANSFERS Supine?sit: I Sit-stand: I Stand-sit: I GAIT Assistive Device: No AD Weight bearing: Full Assist: S Distance: 10' +40' Deviation: Reports of SOB with increased gait distance THEREX: Patient completed a LE strengthening program, in a seated position, as per flow sheet. ASSESSMENT: Patient tolerated session with complaints of increased SOB with increased gait distance. Patient would benefit from continued general conditioning and strengthening for improved activity tolerance and mobility. PLAN: Continue with PTs POC TREATMENT CODE/TIME: 30 minutes; 71213, 35374
[2019-05-18] MEDS: Enoxaparin 40 MG/0.4 ML SYR SC (13:12)
[2019-05-18] MEDS: Normal Saline Flush 10 ML SYR IVP (13:12)
--- NOTE | 2019-05-18 13:13 | PHARADMIT ---
Addendum entered by Katie Jamison 05/25/19 13:29: Pharmacy Note Subjective pt. requiring more oxygen per morning report Objective BP-118/58 other VS okay Assessment methylprednisolone dose increased before being changed to hydrocortisone furosemide and hydrochlorothiazide still on hold OPERATING SYSTEM PROGRAMMER calling [facility] [place] to set up transfer on Monday for lung biopsy possible palliatve consult? Plan continue to watch VS, labs and for med changes Addendum entered by Katie Jamison 05/24/19 16:37: Pharmacy Note Subjective pt refused PT 2 previous days, but did participate today Objective BP-153/68 other VS okay Assessment bactrim started this morning for PJP prophylaxis day 2 of IV steroids Plan if pt not getting better/or gets worse possible transfer to [facility] [place] Monday for lung biopsy Addendum entered by Jeremy Orozco III 05/23/19 12:24: Pharmacy Note Subjective Patient is suffering from sepsis due to community acquired Pneumonia, having difficulty breathing and requiring 5 Liters of Oxygen. Was too exhausted to participate in PT this morning. Objective VS-OK SA-O2-92% on 5 L SCr-1.30 Na-137 K+3.7 WBC-10.69 H&H,Plts-OK Wgt-96.4 kg BM today. Assessment Currently receiving Levaquin 750mg PO (day#6) and IV steroids. Vancomycin dc'd last night. No Growth on Blood Cultures. Lasix drip is now Lasix 20mg PO bid. On Aricept & Abilify for dementia. Plan Continue current course of therapy. Original Note: Admission Pharmacy Clinical Review SEPSIS due to Community Acquired Pneumonia Code Status Full Code Current Weight Wgt-102 kg Renally Cleared and Narrow Therapeutic Index Meds CrCl~ 59mL/min Meds-Ok QTc Value / Action Taken none current BP Control, Fever BP-180/82 Tmax-38.4C Electrolytes reviewed Na-140 K+4.0 Mag-1.8 DVT Prophylaxis Lovenox 40mg Opiate Usage / Scheduled Bowel Regimen Ordered No Yes Plt/SCr for Heparin / Enoxaparin Plts-333 SCr-0.99 INR for Warfarin na H/H stable, WBC/Bands H&H-12.8/39.4 WBC- 14.95 Antibiotic appropriateness Rocephin, Doxycycline IV Cultures and Sensitivities Flu-neg, Blood-pending Surgical ABX d/c within 24 hr na DM control / Insulin Dosing BG-115 Heart Failure (Check EF%) (NORTH's, B-Block, Diuretics) HCTZ IV to PO Switch No Home Meds Reviewed Yes Home Meds Not Ordered Ordered Comments
--- NOTE | 2019-05-18 14:48 | W.PM.PROGNOT ---
Date of Service Date of service: 05/18/19 Time of Service: 14:48 Assessment and Plan Assessment and plan (1) CAP (community acquired pneumonia): Start date: 05/18/19 Start time: 14:51 Status: Acute Assessment and plan: Continues to be febrile despite 24 hours antibiotics. D/c doxy and ceftriaxone, start levaquin, monitor WBC, procalcitonin negative, BC with NGTD, continue to monitor. (2) Dementia: Start date: 05/18/19 Start time: 14:54 Status: Chronic Assessment and plan: Still being worked up for dementia by PCP, AAOx3. Continue abilify and aricept (3) Lumbosacral radiculopathy: Start date: 05/18/19 Start time: 14:54 Status: Acute Assessment and plan: Scheduled for Lumbarsacarol surgery on 05/23, patient unsure what type of surgery. Consult PT Monitor (4) GERD (gastroesophageal reflux disease): Start date: 05/18/19 Start time: 14:55 Status: Inactive Assessment and plan: Zantac will continue home regimen (5) Depression: Start date: 05/18/19 Start time: 14:55 Status: Chronic Assessment and plan: Continue zoloft. (6) Hypertension: Start date: 05/18/19 Start time: 14:55 Status: None Assessment and plan: Monitor in setting of infection continue HCTZ. The above case discussed with Dr. Kelly who is in agreement. Subjective Subjective Patient reports: fever Interval history since last seen: Continues to be febrile despite antibiotics. D/c ceftriaxone and doxy, started on levaquin. WBC increased today. BC with NGTD, continue to monitor. Exam Const General: cooperative, comfortable, no acute distress and ill appearing Orientation: alert, awake and oriented x3 Neck Neck: no JVD Thyroid: thyroid normal Lymphatic: no lymphadenopathy noted and no lymphedema noted Chest Chest: normal inspection of the chest Resp Effort & Inspection: able to speak in complete sentences (SOB easily. ) Auscultation: crackles Cardio Jugular venous pressure: no JVD Rate: regular rate Rhythm: regular rhythm Heart Sounds: S1 normal and S2 normal GI Palpation: soft and no hepatosplenomegaly Auscultation: normal bowel sounds Skin General skin exam: no rashes or lesions noted Neuro General: alert, awake and oriented x3 Extrem General: normal to inspection Objective Objective Clinical Data: Abnormal lab results 05/17/19 05/18/19 05/18/19 Range/Units 12:10 06:50 06:50 WBC 14.95 H (4.4-10.8) k/cumm RBC 3.93 L (4.50-6.00) m/cumm Hgb 12.8 L (13.5-17.5) g/dL Hct 39.4 L (40.0-50.0) % MCV 100.3 H (80-95) fL Absolute Neutrophils 10.61 H (1.2-6.7) k/cumm Absolute Monocytes 1.50 H (0.11-0.7) k/cumm Anion Gap 12.9 H (3-11) mmol/L Glucose 113 H 115 H (74-106) mg/dL Total Bilirubin 1.3 H (0.2-1.0) mg/dL Albumin 3.1 L (3.4-5.0) g/dL Vital Signs Temperature 38.4 C H 05/18/19 08:15 Temperature Source Tympanic 05/18/19 08:15 Pulse 89 05/18/19 08:15 Pulse Rhythm Regular 05/18/19 07:53 Pulse 94 H 05/17/19 14:31 Respiratory Rate 20 05/18/19 11:06 Respiratory Effort 05/18/19 07:53 Respiratory Depth Shallow 05/18/19 07:53 Respiratory Pattern Normal 05/18/19 07:53 Blood Pressure 180/82 H 05/18/19 08:15 Blood Pressure Mean 77 05/17/19 14:31 Blood Pressure Position Supine 05/17/19 10:04 Pulse Oximetry 90 L 05/18/19 08:15 Oxygen Delivery Method Room Air 05/18/19 11:06 Oxygen Flow Rate 0 05/18/19 11:06 Pain Level 4 05/18/19 07:53 Comment 05/17/19 15:10 Intake & Output 05/17/19 05/18/19 05/18/19 23:59 11:59 23:59 Intake Total 1450 / 1450 200 / 680 480 / 680 Output Total 350 / 350 700 / 700 Balance 1100 / 1100 -500 / -20 480 / -20 Weight 102.058 kg Intake: IV 1300 / 1300 100 / 100 Oral 150 / 150 100 / 580 480 / 580 Output: Urine 350 / 350 700 / 700 Other: Urine Color Dark Sofia Light Sofia Urine Appearance Clear Clear Urine Odor Strong Voiding Methods Urinal Urinal Laboratory Results WBC 14.95 k/cumm (4.4-10.8) H 05/18/19 06:50 RBC 3.93 m/cumm (4.50-6.00) L 05/18/19 06:50 Hgb 12.8 g/dL (13.5-17.5) L 05/18/19 06:50 Hct 39.4 % (40.0-50.0) L 05/18/19 06:50 MCV 100.3 fL (80-95) H 05/18/19 06:50 MCH 32.6 pg (27.0-33.0) 05/18/19 06:50 MCHC 32.5 g/dL (32.0-36.0) 05/18/19 06:50 RDW 12.6 % (11.8-14.1) 05/18/19 06:50 Plt Count 333 x1000/uL (130-400) 05/18/19 06:50 MPV 10.4 fL (8.0-11.0) 05/18/19 06:50 Immature Gran % See Differential 05/18/19 06:50 Neutrophils % 69.0 05/18/19 06:50 Band Neutrophils % 2.0 % 05/18/19 06:50 Lymphocytes % 14.0 05/18/19 06:50 Atypical Lymphs % 1 05/18/19 06:50 Monocytes % 10.0 05/18/19 06:50 Eosinophils % 4.0 05/18/19 06:50 Basophils % 0.0 05/18/19 06:50 Absolute Neutrophils 10.61 k/cumm (1.2-6.7) H 05/18/19 06:50 Absolute Lymphocytes 2.24 k/cumm (1.2-3.4) 05/18/19 06:50 Absolute Monocytes 1.50 k/cumm (0.11-0.7) H 05/18/19 06:50 Absolute Eosinophils 0.60 k/cumm (0.0-0.7) 05/18/19 06:50 Absolute Basophils 0.00 k/cumm (0.0-0.2) 05/18/19 06:50 Differential Comment Manual differential 05/18/19 06:50 RBC Morphology See below 05/18/19 06:50 Polychromasia Present 05/18/19 06:50 Sodium 140 mmol/L (136-145) 05/18/19 06:50 Potassium 4.0 mmol/L (3.5-5.1) 05/18/19 06:50 Chloride 103 mmol/L (98-107) 05/18/19 06:50 Carbon Dioxide 24.1 mmol/L (21.0-32.0) 05/18/19 06:50 Anion Gap 12.9 mmol/L (3-11) H 05/18/19 06:50 BUN 15 mg/dL (7-18) 05/18/19 06:50 Creatinine 0.99 mg/dL (0.70-1.30) 05/18/19 06:50 Estimated GFR/1.73 m2 >= 60.00 (mL/min/1.73m2) 05/18/19 06:50 Glucose 115 mg/dL (74-106) H 05/18/19 06:50 Lactate 1.1 mmol/L (0.6-1.4) 05/17/19 12:10 Calcium 8.6 mg/dL (8.5-10.1) 05/18/19 06:50 Magnesium 1.8 mg/dL (1.8-2.4) 05/18/19 06:50 Total Bilirubin 1.3 mg/dL (0.2-1.0) H 05/17/19 12:10 AST 17 U/L (15-37) 05/17/19 12:10 ALT 17 U/L (16-63) 05/17/19 12:10 Alkaline Phosphatase 103 U/L (46-116) 05/17/19 12:10 NT-Pro-B Natriuret Pep 435 pg/mL (<300) 05/17/19 12:10 Total Protein 6.8 g/dL (6.4-8.2) 05/17/19 12:10 Albumin 3.1 g/dL (3.4-5.0) L 05/17/19 12:10 Procalcitonin 0.1 ng/mL 05/18/19 06:50
[2019-05-18] MEDS: levoFLOXacin 750 MG/150 ML BAG 100 MG IVPB (15:41)
--- NOTE | 2019-05-18 19:21 | PDOC.CMIN ---
Care Management Initial Assess REASON FOR HOSPITALIZATION:: Sepsis due to community aquired pneumonia PAST MEDICAL HISTORY/PAST SURGICAL HISTORY:: Arthritis, back pain, cervical stenosis of the spine, dementia, depression, GERD, gout, hypertension, lumbar back pain with radiculopathy affecting LLE, neurogenic claudication due to lumbar spinal stenosis, bilateral shoulder arthroscopy, colonoscopy-MAC, bilat hip replacemetns, penile inplant prosthesis, repair of umbilical hernia, cervical spine fusion, trochanteric bursitis of right hip. PREVIOUS FUNCTIONAL STATUS/SOCIAL/FAMILY SUPPORTS:: Gordy resides in [facility] with his , Roselia. Their daughter, Renita resides in [place], [place]. CURRENT FUNCTIONAL STATUS:: Gordy is lying on his side, sleeping. He reports not feeling well enough to engage; CM will continue to follow. ADVANCE DIRECTIVES:: On file at [facility]; Roselia as Agent, Renita as alternate. Has patient been provided with information about the portal?: Yes Did the patient sign up for the portal?: Yes (Previously) CODE STATUS:: Full Code INSURANCE COVERAGE / FINANCIAL ISSUES:: Medicare. [place] CURRENT HOME/COMMUNITY SERVICES/EQUIPMENT:: Dr Sue at [facility] Day: scheduled for surgery at [facility]? PRIMARY CARE PHYSICIAN:: Previously Dr. Villagomez, now seeing Dr. Prem Nolan DO. POTENTIAL DISCHARGE NEEDS:: Assessment of current service supports, evaluation for further needs, follow up appointments. PATIENT/FAMILY EDUCATION NEEDS:: Review of discharge instructions, discuss Ask Me Three. ANTICIPATED BARRIERS TO DISCHARGE:: None identified at this time. TRANSPORTATION:: Via private vehicle with his . PLAN:: Gordy will return home when ready per MD. He will follow up with his new PCP and plan of care as prescribed. He will transport via private vehicle with his , Roselia.
[2019-05-18] MEDS: Albuterol 2.5 MG/3 ML INH SOLN VIAL UPD (21:25)
[2019-05-19] VITALS (10 sets, daily range): BP systolic 103–161; BP diastolic 62–77; PULSE 69–96; RESP 2–22; TEMP 36.9–38.7; O2SAT 88–99
[2019-05-19] MEDS: Albuterol/Ipratropium 3 ML UPD VIAL UPD ×5 (05:25→23:51)
[2019-05-19 06:57] LABS: Abs Immature Grans 0.09 k/cumm (0.0-0.09); HCT 35.1 % (40.0-50.0); HGB 11.4 g/dL (13.5-17.5); Mean Corp. HGB Concentration 32.5 g/dL (32.0-36.0); Mean Corpuscular Hemoglobin 32.4 pg (27.0-33.0); Mean Corpuscular Volume 99.7 fL (80-95); Mean Platelet Volume 10.2 fL (8.0-11.0); RBC 3.52 m/cumm (4.50-6.00); RBC Distribution Width 12.5 % (11.8-14.1)
[2019-05-19 07:10] LABS: Anion Gap 12.5 mmol/L (3-11); BUN 13 mg/dL (7-18); CO2 23.5 mmol/L (21.0-32.0); CREATININE 0.99 mg/dL (0.70-1.30); Calcium 8.4 mg/dL (8.5-10.1); Chloride 103 mmol/L (98-107); Glucose 158 mg/dL (74-106); Magnesium 1.8 mg/dL (1.8-2.4); Potassium 3.1 mmol/L (3.5-5.1); Sodium 139 mmol/L (136-145)
[2019-05-19 07:32] LABS: Absolute Basophil Count 0.23 k/cumm (0.0-0.2); Absolute Eosinophil Count 0.57 k/cumm (0.0-0.7); Absolute Monocyte Count 0.79 k/cumm (0.11-0.7); Absolute Neutrophil Count 8.02 k/cumm (1.2-6.7); Atypical Lymphocytes % 1; Diff Comment Manual Differential; Platelet Count 296 x1000/uL (130-400); Polychromasia Present
[2019-05-19 07:36] LABS: Procalcitonin 0.1 ng/mL
[2019-05-19] MEDS: Benzonatate 100 MG CAP PO ×3 (08:34→19:45)
[2019-05-19] MEDS: guaiFENesin 600 MG TABCR PO ×2 (08:34→19:45)
[2019-05-19] MEDS: ARIPiprazole 2 MG TAB PO (08:35)
[2019-05-19] MEDS: Tamsulosin 0.4 MG CAPCR PO (08:35)
[2019-05-19] MEDS: hydroCHLOROthiazide 25 MG TAB PO (08:35)
[2019-05-19] MEDS: levoFLOXacin 500 MG, levoFLOXacin 250 MG 750 MG PO (08:35)
[2019-05-19] MEDS: Allopurinol 300 MG TAB PO (08:35)
[2019-05-19] MEDS: Donepezil 5 MG TAB PO (08:35)
[2019-05-19] MEDS: Sertraline 50 MG TAB 100 MG PO (08:35)
[2019-05-19] MEDS: Docusate Sodium 100 MG CAP PO (08:35)
[2019-05-19] MEDS: Normal Saline Flush 10 ML SYR IVP ×4 (08:36→19:46)
--- NOTE | 2019-05-19 09:47 | CMPROGNOTE_ITS ---
Care Management Progress Note S/O: Gordy continues to be treated with IV ABX at this time, per MD anticipated ECHO and viral panel to be obtained tomorrow, 05/20/19. Gordy is now being treated for diastolic heart failure in addition to pneumonia. He remains on IV ABX, IV Lasix to begin. SPOT MAN discussing freeman placement when CM exited the room, Gordy reported not wanting the freeman catheter; CM encouraged due to increased urination anticipated. Gordy reported he was already urinating frequently. Gordy and Roselia were open to increase home service supports due to increased weakness and inability to currently care for self. CM continues to follow. A: 78 year old male admitted to [facility] 05/17/19 for Sepsis due to CAP P: Gordy will return home when ready per MD. Anticipate once more stable, he will be evaluated by PT/OT for discharge planning considerations. He will follow up with his new PCP and plan of care as prescribed. He will transport via private vehicle with his , Roselia.
[2019-05-19 10:34] LABS: C-Reactive Protein 21.66 mg/dL (0.0-0.3)
[2019-05-19] MEDS: Potassium Chloride 20 MEQ TABCR 40 MEQ PO ×2 (10:37→23:52)
[2019-05-19] MEDS: Furosemide 20 MG/2 ML VIAL IVP (10:37)
[2019-05-19] MEDS: Lisinopril 5 MG TAB PO (10:37)
[2019-05-19 11:11] LABS: NT-proBNP 453 pg/mL (<300)
--- NOTE | 2019-05-19 11:12 | DI.RAD_ITS ---
EXAM: XR CHEST 2V PA LATERAL INDICATION: Low saturation,SEPSIS COMPARISON: XR CHEST 2V PA LATERAL from 05/17/2019 CT CHEST PE CTA from 05/19/2019 TECHNIQUE: 2D digital imaging was performed. FINDINGS: The heart size is within normal limits. The lungs are suboptimally inflated on both views. The lat eral view is limited by respiratory motion. There are tiny bilateral pleural effusions. There are i ncreased densities seen in the right upper lobe as well as left upper and lower lobes when compared w ith the previous exam. Chronic interstitial fibrosis is again noted. IMPRESSION: Bilateral infiltrates.
--- NOTE | 2019-05-19 11:27 | DI.VRAD_ITS ---
PROCEDURE INFORMATION: Exam: XR Chest, 2 Views Exam date and time: 05/19/2019 11:10 AM Age: 78 years old Clinical history: Cough and shortness of breath; Patient HX: Worsening SOB, fever, low saturation TECHNIQUE: Imaging protocol: XR of the chest Views: 2 views. COMPARISON: CR XR CHEST 2V PA LATERAL 05/17/2019 11:24 AM FINDINGS: Lungs: Hazy opacification of the right upper lobe and left lung with parahilar fullness and indistinct pulmonary vasculature. More confluent left basilar opacities. Pleural space: Unremarkable. No pleural effusion. No pneumothorax. Heart/Mediastinum: Cardiomegaly. Vasculature: Calcified tortuous aorta. Bones/joints: DISH of the thoracic spine. No acute osseous findings. IMPRESSION: Constellation of findings most likely suggest decompensated cardiogenic pulmonary edema; however, cannot exclude underlying infectious process in the proper clinical setting. Dictated and Authenticated by: Josh Wills MD. Ordering:ALLAN Rader MD
--- NOTE | 2019-05-19 11:38 | DI.CT_ITS ---
EXAM: CT CHEST PE CTA CLINICAL HISTORY: worsening SOB, fever TECHNIQUE: Post IV contrast. Axial CT angiography was performed with multi-slice acquisition and multi-planar and/or 3D reconstruc tions. COMPARISON: ABD PELVIS WITH CONTRAST from 12/17/2009 FINDINGS: There is no evidence of pulmonary emboli or aortic dissection. The aorta shows calcification and is normal in diameter. Coronary artery calcifications are seen. There is no pericardial effusion. Th ere is some enlargement of the main pulmonary artery and main left and right pulmonary arteries. The heart appears mildly enlarged. No emboli are seen. There are tiny bilateral pleural effusions, lef t greater than right. There are bilateral pulmonary infiltrates, with some consolidation at the left lung base and both upper lobes. There are some underlying emphysematous changes as well as intersti tial changes. Changes of DISH are seen throughout the spine. IMPRESSION: Tiny bilateral effusions and bilateral pulmonary infiltrates. Findings could represent asymmetric p ulmonary edema versus infection or inflammatory pneumonia.
[2019-05-19] MEDS: Furosemide 40 MG/4 ML VIAL IVP (12:03)
--- NOTE | 2019-05-19 12:10 | DI.VRAD_ITS ---
PROCEDURE INFORMATION: Exam: CT Angiography Chest Without And With Contrast Exam date and time: 05/19/2019 11:33 AM Age: 78 years old Clinical history: Fever and shortness of breath; Patient HX: Worsening SOB, fever TECHNIQUE: Imaging protocol: Computed tomographic angiography of the chest without and with intravenous contrast. 3D rendering: MIP reconstructed images were created and reviewed. Radiation optimization: All CT scans at this facility use at least one of these dose optimization techniques: automated exposure control; mA and/or kV adjustment per patient size (includes targeted exams where dose is matched to clinical indication); or iterative reconstruction. Contrast material: OMNI-PAQUE 350; Contrast volume: 83 ml; Contrast route: IV; COMPARISON: CR XR CHEST 2V PA LATERAL 05/19/2019 11:04 AM FINDINGS: Pulmonary arteries: No pulmonary emboli. Enlargement of the main pulmonary artery. Aorta: The aorta demonstrates moderate atherosclerotic calcification. Lungs: Diffuse bilateral ground-glass attenuation with interlobular septal thickening as well as interstitial thickening. Slight consolidation of the right lung base. Pleural space: Trace bilateral pleural effusions (left greater than right). No pneumothorax. Heart: Cardiomegaly. No pericardial effusion. There is mild atherosclerotic calcification of the coronary arteries. Mediastinum: Asymmetrical thickening of the distal esophagus versus small hiatus hernia. There is a small paraesophageal lymph node. Enlarged mediastinal lymph nodes could be reactive. Upper Abdomen: There is a diffuse decrease in hepatic parenchymal density, consistent with fatty infiltration. Right upper pole 4 cm fluid density renal cyst. The remainder of the visualized upper abdomen is unremarkable. Bones/joints: DISH of the thoracic spine. No acute fracture. No concerning osseous lesion. Soft tissues: Unremarkable. IMPRESSION: No pulmonary embolus. Constellation of findings again mostly suggest decompensated pulmonary edema; however, cannot exclude underlying infectious process in the proper clinical setting. Enlarged mediastinal lymph nodes are likely reactive. Recommend imaging follow-up to resolution. Dictated and Authenticated by: Josh Wills MD. Ordering:ALLAN Rader MD
--- NOTE | 2019-05-19 12:23 | PT.INTREAT ---
Date of service: 05/19/19 Time of Service: 12:23 PT Notes Visit Reasons: SEPSIS DUE TO COMMUNITY ACQUIRED PNEUMONIA 05/19/2019 Held today's PT session as patient is not feeling well and is very SOB. Will attempt to resume PT services tomorrow morning
[2019-05-19 13:04] LABS: Troponin I < 0.05 ng/Ml (<0.06)
[2019-05-19] MEDS: Enoxaparin 40 MG/0.4 ML SYR SC (13:06)
--- NOTE | 2019-05-19 16:13 | W.PM.PROGNOT ---
Date of Service Date of service: 05/19/19 Time of Service: 16:13 Assessment and Plan Assessment and plan (1) Diastolic CHF, acute: Start date: 05/19/19 Start time: 16:19 Status: Acute Assessment and plan: Increasing SOB, greater oxygen requirements, CTA suggestive decompensated pulmonary edema; previous echo 2017 with EF of 60-65% and mild diastolic dysfunction, however worsening symptoms with greater oxygen requirement; repeat Echo in am. Given 2 doses of lasix with little relief, will start lasix drip, freeman catheter, daily weights, strict i/o and monitor patient oxygen requirements. Likely some underlying COPD as well. (2) CAP (community acquired pneumonia): Start date: 05/19/19 Start time: 16:17 Status: Acute Assessment and plan: Continues to be febrile, feeling aweful, Day 2 levaqin and day 1 vancomycin added to regimen. , Leukocytosis improving, procalcitonin 0.1, BC with NGTD, continue to monitor. (3) Dementia: Start date: 05/19/19 Start time: 16:23 Status: Chronic Assessment and plan: Still being worked up for dementia by PCP, AAOx3. Continue abilify and aricept (4) Lumbosacral radiculopathy: Start date: 05/19/19 Start time: 16:23 Status: Acute Assessment and plan: Scheduled for Lumbarsacarol surgery on 05/23, patient unsure what type of surgery. Consult PT Monitor (5) GERD (gastroesophageal reflux disease): Start date: 05/19/19 Start time: 16:23 Status: Inactive Assessment and plan: Zantac will continue home regimen (6) Depression: Start date: 05/19/19 Start time: 16:23 Status: Chronic Assessment and plan: Continue zoloft. (7) Hypertension: Start date: 05/19/19 Start time: 16:23 Status: None Assessment and plan: Monitor in setting of infection, started on lasix drip The above case discussed with Dr. Kelly who is in agreement. Subjective Subjective Patient reports: shortness of breath Interval history since last seen: Worsening SOB and febrile overnight despite antibiotics change. Placed on vancomycin, lasix IV given, CTA revealing suggest decompensated pulmonary edema; last echo in 2017 with EF 60-65% some diastolic dysfunction. Repeat Echo for am. Oxygen requirements increasing, placed on a lasix drip, Vancomycin added to levaquin and will continue to monitor patient progress. Exam Const General: cooperative, comfortable, no acute distress and ill appearing Nutritional Appearance: obese Orientation: alert, awake and oriented x3 HENMT Head: normal to inspection Ears: hearing grossly normal bilaterally Face and sinus: normal facial exam Mouth: oral mucosae normal Eyes General: appearance normal, both eyes and all related structures Pupils: PERRL EOM: EOM intact bilaterally Neck Neck: normal visual inspection and no JVD Thyroid: thyroid normal Lymphatic: no lymphadenopathy noted and no lymphedema noted Chest Chest: normal inspection of the chest Resp Effort & Inspection: not able to speak in complete sentences (SOB easily. ) Auscultation: crackles Other: Worsening SOB evidenced by requiring more oxygen, YOU worsening. Cardio Jugular venous pressure: no JVD Rate: regular rate Rhythm: regular rhythm Heart Sounds: S1 normal and S2 normal GI Inspection: normal to inspection Palpation: soft and no hepatosplenomegaly Auscultation: normal bowel sounds General: deferred Skin General skin exam: no rashes or lesions noted Wounds: no wounds Neuro General: alert, awake and oriented x3 Cognition: normal cognition Extrem General: normal to inspection, no clubbing, no cyanosis and no edema Psych Appearance: grossly normal Affect: normal affect Objective Objective Clinical Data: Abnormal lab results 05/19/19 05/19/19 Range/Units 06:35 06:35 WBC 11.30 H (4.4-10.8) k/cumm RBC 3.52 L (4.50-6.00) m/cumm Hgb 11.4 L (13.5-17.5) g/dL Hct 35.1 L (40.0-50.0) % MCV 99.7 H (80-95) fL Absolute Neutrophils 8.02 H (1.2-6.7) k/cumm Absolute Monocytes 0.79 H (0.11-0.7) k/cumm Absolute Basophils 0.23 H (0.0-0.2) k/cumm Potassium 3.1 L (3.5-5.1) mmol/L Anion Gap 12.5 H (3-11) mmol/L Glucose 158 H (74-106) mg/dL Calcium 8.4 L (8.5-10.1) mg/dL C-Reactive Protein 21.66 H (0.0-0.3) mg/dL Vital Signs Temperature 37.3 C 05/19/19 07:41 Temperature Source Temporal Artery Scan 05/19/19 07:41 Pulse 69 05/19/19 07:41 Pulse Rhythm Regular 05/19/19 08:38 Pulse 94 H 05/17/19 14:31 Respiratory Rate 20 05/19/19 11:58 Respiratory Effort 05/19/19 08:38 Respiratory Depth Normal 05/19/19 08:38 Respiratory Pattern Normal 05/19/19 08:38 Blood Pressure 161/77 H 05/19/19 07:41 Blood Pressure Mean 77 05/17/19 14:31 Blood Pressure Position Supine 05/17/19 10:04 Pulse Oximetry 88 L 05/19/19 11:58 Oxygen Delivery Method Nasal Cannula 05/19/19 11:58 Oxygen Flow Rate 3 05/19/19 11:58 Pain Level 0 05/19/19 07:41 Comment 05/17/19 15:10 Intake & Output 05/18/19 05/19/19 05/19/19 23:59 11:59 23:59 Intake Total 1480 / 1680 Output Total 200 / 900 925 / 5 1100 / 2024 Balance 1280 / 780 -925 / -2024 -1100 / -2024 Intake: IV 1000 / 1100 Oral 480 / 580 Output: Urine 200 / 900 92 / 5 1099 / 2024 Other: Urine Color Yellow Yellow Pale Urine Appearance Clear Clear Urine Odor Normal Comment patient using urinal standing at bedside. Voiding Methods Urinal Urinal Urinal Laboratory Results WBC 11.30 k/cumm (4.4-10.8) H 05/19/19 06:35 RBC 3.52 m/cumm (4.50-6.00) L 05/19/19 06:35 Hgb 11.4 g/dL (13.5-17.5) L 05/19/19 06:35 Hct 35.1 % (40.0-50.0) L 05/19/19 06:35 MCV 99.7 fL (80-95) H 05/19/19 06:35 MCH 32.4 pg (27.0-33.0) 05/19/19 06:35 MCHC 32.5 g/dL (32.0-36.0) 05/19/19 06:35 RDW 12.5 % (11.8-14.1) 05/19/19 06:35 Plt Count 296 x1000/uL (130-400) 05/19/19 06:35 MPV 10.2 fL (8.0-11.0) 05/19/19 06:35 Immature Gran % See Differential 05/19/19 06:35 Neutrophils % 69.0 05/19/19 06:35 Band Neutrophils % 2.0 % 05/19/19 06:35 Lymphocytes % 14.0 05/19/19 06:35 Atypical Lymphs % 1 05/19/19 06:35 Monocytes % 7.0 05/19/19 06:35 Eosinophils % 5.0 05/19/19 06:35 Basophils % 2.0 05/19/19 06:35 Absolute Neutrophils 8.02 k/cumm (1.2-6.7) H 05/19/19 06:35 Absolute Lymphocytes 1.70 k/cumm (1.2-3.4) 05/19/19 06:35 Absolute Monocytes 0.79 k/cumm (0.11-0.7) H 05/19/19 06:35 Absolute Eosinophils 0.57 k/cumm (0.0-0.7) 05/19/19 06:35 Absolute Basophils 0.23 k/cumm (0.0-0.2) H 05/19/19 06:35 Differential Comment Manual differential 05/19/19 06:35 RBC Morphology See below 05/19/19 06:35 Polychromasia Present 05/19/19 06:35 Sodium 139 mmol/L (136-145) 05/19/19 06:35 Potassium 3.1 mmol/L (3.5-5.1) L 05/19/19 06:35 Chloride 103 mmol/L (98-107) 05/19/19 06:35 Carbon Dioxide 23.5 mmol/L (21.0-32.0) 05/19/19 06:35 Anion Gap 12.5 mmol/L (3-11) H 05/19/19 06:35 BUN 13 mg/dL (7-18) 05/19/19 06:35 Creatinine 0.99 mg/dL (0.70-1.30) 05/19/19 06:35 Estimated GFR/1.73 m2 >= 60.00 (mL/min/1.73m2) 05/19/19 06:35 Glucose 158 mg/dL (74-106) H 05/19/19 06:35 Lactate 1.1 mmol/L (0.6-1.4) 05/17/19 12:10 Calcium 8.4 mg/dL (8.5-10.1) L 05/19/19 06:35 Magnesium 1.8 mg/dL (1.8-2.4) 05/19/19 06:35 Total Bilirubin 1.3 mg/dL (0.2-1.0) H 05/17/19 12:10 AST 17 U/L (15-37) 05/17/19 12:10 ALT 17 U/L (16-63) 05/17/19 12:10 Alkaline Phosphatase 103 U/L (46-116) 05/17/19 12:10 Troponin I < 0.05 ng/Ml (<0.06) 05/19/19 12:35 C-Reactive Protein 21.66 mg/dL (0.0-0.3) H 05/19/19 06:35 NT-Pro-B Natriuret Pep 453 pg/mL (<300) 05/19/19 06:35 Total Protein 6.8 g/dL (6.4-8.2) 05/17/19 12:10 Albumin 3.1 g/dL (3.4-5.0) L 05/17/19 12:10 Procalcitonin 0.1 ng/mL 05/19/19 06:35
[2019-05-19] MEDS: Ibuprofen 400 MG TAB PO ×3 (16:18→17:12)
[2019-05-20] VITALS (13 sets, daily range): BP systolic 85–127; BP diastolic 47–76; PULSE 62–111; RESP 2–28; TEMP 36.3–38; O2SAT 78–95
[2019-05-20] MEDS: Albuterol/Ipratropium 3 ML UPD VIAL UPD ×3 (06:40→18:27)
[2019-05-20 07:54] LABS: HCT 36.3 % (40.0-50.0); HGB 12.2 g/dL (13.5-17.5); Mean Corp. HGB Concentration 33.6 g/dL (32.0-36.0); Mean Corpuscular Volume 98.1 fL (80-95); Mean Platelet Volume 10.3 fL (8.0-11.0); RBC Distribution Width 12.4 % (11.8-14.1); White Blood Cell Count 13.36 k/cumm (4.4-10.8)
[2019-05-20 08:00] LABS: Anion Gap 11.6 mmol/L (3-11); BUN 20 mg/dL (7-18); CO2 24.4 mmol/L (21.0-32.0); CREATININE 1.39 mg/dL (0.70-1.30); Chloride 102 mmol/L (98-107); Estimated GFR 49.42 (mL/min/1.73m2); Glucose 121 mg/dL (74-106); Potassium 3.4 mmol/L (3.5-5.1); Sodium 138 mmol/L (136-145)
--- NOTE | 2019-05-20 09:01 | DI.US_ITS ---
APPROVED REPORT EXAM: Comprehensive 2D, Doppler, and color-flow Echocardiogram Patient Location: In-Patient Talent Director: [facility] ([facility]) Indications: SOB Conclusion Left Ventricle : The left ventricle is normal. Mild concentric left ventricular hypertrophy. The left ventricular diastolic function is normal. Left ventricular systolic function is normal. Unable to ev aluate entirely for wall motion abnormalities without contrast as each segment is not fully interroga maxine. There appears to be some dropout of the lateral wall LVEF is estimated to be 55-60%. Right Ventricle : The right ventricle is normal size. The right ventricular systolic function is norm al. Atria : Left atrium is top normal in size. The right atrium size is normal. Aortic Valve : The Aortic valve is sclerotic with focal thickening. Aortic valve is trileaflet. No ao rtic regurgitation is present. There is no aortic valvular stenosis. Mitral Valve : Mild mitral annular calcification. Trivial to Mild mitral regurgitation. No evidence o f mitral valve stenosis. Tricuspid Valve : Tricuspid valve is not well visualized. Trace tricuspid regurgitation. Great Vessels : The IVC appears small, and collapses >50% with inspiration. There is not enough of a TR jet to estimate RVSP. Compared to echocardiogram dated 03/24/2017 there does not appear to be any significant change. Wall motion Left Ventricle The left ventricle is normal. Left ventricular systolic function is normal. Mild concentric left vent ricular hypertrophy. Unable to evaluate entirely for wall motion abnormalities without contrast as ea ch segment is not fully interrogated. There appears to be some dropout of the lateral wall The left v entricular diastolic function is normal. LVEF is estimated to be 55-60%. Right Ventricle The right ventricle is normal size. The right ventricular systolic function is normal. Atria Left atrium is top normal in size. The right atrium size is normal. Aortic Valve The Aortic valve is sclerotic with focal thickening. Aortic valve is trileaflet. There is no aortic v alvular stenosis. No aortic regurgitation is present. Mitral Valve Mild mitral annular calcification. No evidence of mitral valve stenosis. Trivial to Mild mitral regur gitation. Tricuspid Valve Tricuspid valve is not well visualized. Trace tricuspid regurgitation. Pulmonic Valve Pulmonic valve is not well visualized. Great Vessels The aortic root size is normal. The ascending aorta size is normal. The IVC appears small, and collap ses >50% with inspiration. There is not enough of a TR jet to estimate RVSP. Pericardium There is no pericardial effusion. 2D Dimensions IVSd 1.55 cm M: 0.6-1.2 LV EDV A2C 80.10 mL PWd 1.30 cm M: 0.6 - 1.2 LV EDV A4C 65.70 mL LVDd 4.90 cm M: 4.2 - 5.8 LA Volume Index A4C 31.37 mL/m2 LVDs 3.25 cm M: 2.5 - 4.0 LA Area A4C 21.07 cm2 Aortic Root 3.30 cm M: 3.1 - 3.7 EF AP4 57.23 % RA Area A4C 16.00 cm2 EF AP2 60.30 % LVOT 2.30 cm (M/F) 1.5-2.5 EF BP 60.16 % Ascending Aorta 3.37 cm M: 2.6 - 3.4 LVEF (Teich) 61.06 % LVEF (Goodson's) 60.16 % M: 52 - 72 LV Volume 55.28 mL M: 62 - 150 LV Volume Index 25.83 mL/m2 M: 34 - 74 FS 32.75 % LV Diastology E/A Ratio 0.7 MED E' 0.13 (>0.07 m/s) LV E/e MED 5.40 (<14) LAT E' 0.08 (>0.1 m/s) LV E/e LAT 8.70 (<14) Aortic Valve LVOT Area 4.25 cm2 LVOT Peak Fransisco. 1.00 m/s LVOT Mean Fransisco. 0.76 m/s LVOT Peak Gr. 4.10 mmHg KIM Vmax Index 1.61 cm2/m2 LVOT Mean Gr. 2.50 mmHg LVOT VTI 0.15 m KIM Mean Fransisco. Index 1.55 cm2/m2 AoV Peak Fransisco. 1.25 (0.5-1.3 m/s) AoV Mean Fransisco. 0.97 m/s AO Peak GR. 6.30 mmHg AO Mean GR. 4.03 (<5 mmHg) AO VTI 0.23 (0.18-0.25 m) KIM (VTI) 3.40 (2.5-4.5 cm2) KIM (VTI) Index 1.59 cm/m2 Mitral Valve MV E Max Fransisco. 0.69 (0.4-1.3 m/s) MV A Velocity 0.95 (0.4-1.3 m/s) E/A Ratio 0.69 MV Decel. Time 305.25 (160-240 msec) MV PHT 88.52 msec MVA PHT 2.45 cm2 Tricuspid Valve TR P. Velocity 2.19 m/s TV Regurg Vmax 2.19 m/s RAP Estimate 3.00 mmHg RVSP 23.00 mmHg TR P. Gradient 19.10 mmHg
[2019-05-20 09:04] LABS: Absolute Basophil Count 0.13 k/cumm (0.0-0.2); Absolute Lymphocyte Count 1.07 k/cumm (1.2-3.4); Absolute Neutrophil Count 10.42 k/cumm (1.2-6.7); Atypical Lymphocytes % 2; Diff Comment Manual Differential
[2019-05-20 09:05] LABS: Platelet Count 353 x1000/uL (130-400); RBC Morphology Normal
[2019-05-20] MEDS: Lisinopril 5 MG TAB PO (09:05)
[2019-05-20] MEDS: Sertraline 50 MG TAB 100 MG PO (09:05)
[2019-05-20] MEDS: levoFLOXacin 500 MG, levoFLOXacin 250 MG 750 MG PO (09:05)
[2019-05-20] MEDS: Allopurinol 300 MG TAB PO (09:05)
[2019-05-20] MEDS: Tamsulosin 0.4 MG CAPCR PO (09:06)
[2019-05-20] MEDS: Docusate Sodium 100 MG CAP PO (09:06)
[2019-05-20] MEDS: Benzonatate 100 MG CAP PO ×3 (09:06→20:10)
[2019-05-20] MEDS: guaiFENesin 600 MG TABCR PO ×2 (09:06→20:10)
[2019-05-20] MEDS: Donepezil 5 MG TAB PO (09:06)
[2019-05-20] MEDS: ARIPiprazole 2 MG TAB PO (09:06)
[2019-05-20] MEDS: Albuterol 2.5 MG/3 ML INH SOLN VIAL UPD (10:46)
[2019-05-20 11:15] LABS: Adenovirus DNA Result Negative (Negative); Metapneumovirus RNA Result Negative (Negative); Parainfluenza Type1 RNA Result Negative (Negative); Parainfluenza Type2 RNA Result Negative (Negative); Parainfluenza Type3 RNA Result Negative (Negative); Parainfluenza Type4 RNA Result Negative (Negative); Rhinovirus RNA Result Negative (Negative)
[2019-05-20] MEDS: Potassium Chloride 20 MEQ TABCR 40 MEQ PO (12:22)
[2019-05-20] MEDS: Normal Saline Flush 10 ML SYR IVP (13:37)
[2019-05-20] MEDS: Enoxaparin 40 MG/0.4 ML SYR SC (14:23)
--- NOTE | 2019-05-20 15:34 | W.PM.PROGNOT ---
Date of Service Date of service: 05/20/19 Time of Service: 15:35 Assessment and Plan Assessment and plan (1) Diastolic CHF, acute: Start date: 05/20/19 Start time: 15:37 Status: Acute Assessment and plan: Echo results: Left Ventricle : The left ventricle is normal. Mild concentric left ventricular hypertrophy. The left ventricular diastolic function is normal. Left ventricular systolic function is normal. Unable to evaluate entirely for wall motion abnormalities without contrast as each segment is not fully interrogated. There appears to be some dropout of the lateral wall LVEF is estimated to be 55-60%. Right Ventricle : The right ventricle is normal size. The right ventricular systolic function is normal. Atria : Left atrium is top normal in size. The right atrium size is normal. Aortic Valve : The Aortic valve is sclerotic with focal thickening. Aortic valve is trileaflet. No aortic regurgitation is present. There is no aortic valvular stenosis. Mitral Valve : Mild mitral annular calcification. Trivial to Mild mitral regurgitation. No evidence of mitral valve stenosis. Tricuspid Valve : Tricuspid valve is not well visualized. Trace tricuspid regurgitation. Great Vessels : The IVC appears small, and collapses >50% with inspiration. There is not enough of a TR jet to estimate RVSP. Compared to echocardiogram dated 03/24/2017 there does not appear to be any significant change. CT revealed cardiogenic pulmonary edema. Placed on lasix drip at 10 ml/hr. with 2656 L output at this time. Appears to be breathing better. Higher saturation with lower oxygen requirement. Having a problem taking deep inspiration, however ICS to 1750. Lasix drip changed to 5 ml due to soft bp and YASMINE, continue to monitor. (2) CAP (community acquired pneumonia): Start date: 05/20/19 Start time: 15:40 Status: Acute Assessment and plan: Fever last night, however it does seem patient is starting to defervesce, afebrile since 1700 yesterday Day 3 levaqin and day 2 vancomycin. , Leukocytosis improving, , BC with NGTD after 72 hours, continue to monitor. (3) Dementia: Start date: 05/20/19 Start time: 15:43 Status: Chronic Assessment and plan: Still being worked up for dementia by PCP, AAOx3. Continue abilify and aricept (4) Lumbosacral radiculopathy: Start date: 05/20/19 Start time: 15:43 Status: Acute Assessment and plan: Scheduled for Lumbarsacarol surgery on 05/23 Consult PT Monitor (5) GERD (gastroesophageal reflux disease): Start date: 05/20/19 Start time: 15:43 Status: Inactive Assessment and plan: Zantac will continue home regimen (6) Depression: Start date: 05/20/19 Start time: 15:43 Status: Chronic Assessment and plan: Continue zoloft. (7) Hypertension: Start date: 05/20/19 Start time: 15:43 Status: None Assessment and plan: Monitor in setting of infection, started on lasix drip, see above The above case discussed with Dr. Kelly who is in agreement. (8) YASMINE (acute kidney injury): Start date: 05/20/19 Start time: 15:44 Status: Acute Assessment and plan: Secondary to Lasix drip. Will change drip rate. Continue to monitor. Subjective Subjective Patient reports: other Interval history since last seen: Did not sleep well last night. States not feeling better, though appears to be improved. Oxygen level improved requiring less oxygen. On lasix drip with 2656 output this far. Will continue to monitor. Refusing PT today did not want to ambulate. Denies CP, N/V/D Exam Const General: cooperative, comfortable, no acute distress and ill appearing Nutritional Appearance: obese Orientation: alert, awake and oriented x3 HENMT Head: normal to inspection Ears: hearing grossly normal bilaterally Face and sinus: normal facial exam Mouth: oral mucosae normal Eyes General: appearance normal, both eyes and all related structures Pupils: PERRL EOM: EOM intact bilaterally Neck Neck: normal visual inspection and no JVD Thyroid: thyroid normal Lymphatic: no lymphadenopathy noted and no lymphedema noted Chest Chest: normal inspection of the chest Resp Effort & Inspection: not able to speak in complete sentences (SOB easily. ) Auscultation: clear to auscultation bilaterally and diminished lung sounds Cardio Jugular venous pressure: no JVD Rate: regular rate Rhythm: regular rhythm Heart Sounds: S1 normal and S2 normal GI Inspection: normal to inspection Palpation: soft and no hepatosplenomegaly Auscultation: normal bowel sounds General: deferred Skin General skin exam: no rashes or lesions noted Wounds: no wounds Neuro General: alert, awake and oriented x3 Cognition: normal cognition Extrem General: normal to inspection, no clubbing, no cyanosis and no edema Psych Appearance: grossly normal Affect: normal affect Objective Objective Clinical Data: Abnormal lab results 05/20/19 05/20/19 Range/Units 07:30 07:30 WBC 13.36 H (4.4-10.8) k/cumm RBC 3.70 L (4.50-6.00) m/cumm Hgb 12.2 L (13.5-17.5) g/dL Hct 36.3 L (40.0-50.0) % MCV 98.1 H (80-95) fL Absolute Neutrophils 10.42 H (1.2-6.7) k/cumm Absolute Lymphocytes 1.07 L (1.2-3.4) k/cumm Absolute Monocytes 0.80 H (0.11-0.7) k/cumm Potassium 3.4 L (3.5-5.1) mmol/L Anion Gap 11.6 H (3-11) mmol/L BUN 20 H D (7-18) mg/dL Creatinine 1.39 H (0.70-1.30) mg/dL Glucose 121 H (74-106) mg/dL Vital Signs Temperature 37.1 C 05/20/19 11:20 Temperature Source Tympanic 05/20/19 11:20 Pulse 82 05/20/19 13:33 Pulse Rhythm Regular 05/19/19 23:33 Pulse 94 H 05/17/19 14:31 Respiratory Rate 18 05/20/19 13:33 Respiratory Effort Short of Breath 05/19/19 23:33 Respiratory Depth Normal 05/19/19 23:33 Respiratory Pattern Normal 05/19/19 23:33 Blood Pressure 121/66 05/20/19 11:20 Blood Pressure Mean 77 05/17/19 14:31 Blood Pressure Position Supine 05/17/19 10:04 Pulse Oximetry 95 05/20/19 13:33 Oxygen Delivery Method Room Air 05/20/19 13:19 Oxygen Flow Rate 0 05/20/19 13:19 Pain Level 0 05/20/19 11:20 Comment 05/17/19 15:10 Intake & Output 05/19/19 05/20/19 05/20/19 23:59 11:59 23:59 Intake Total 500 / 500 350 / 360 10 Output Total 1700 / 2625 1400 / 1551 151 / 1551 Balance -1200 / -2125 -1050 / -1191 -141 / -1191 Weight 96.7 kg Intake: IV 260 / 260 350 / 360 Oral 240 / 240 Output: Urine 1700 / 2625 1400 / 1550 150 / 1550 Stool Other: Urine Color Straw Yellow Dark Sofia Urine Appearance Clear Clear Urine Odor None Stool Size Moderate Stool Characteristics Soft Formed Brown Voiding Methods Urinal Laboratory Results WBC 13.36 k/cumm (4.4-10.8) H 05/20/19 07:30 RBC 3.70 m/cumm (4.50-6.00) L 05/20/19 07:30 Hgb 12.2 g/dL (13.5-17.5) L 05/20/19 07:30 Hct 36.3 % (40.0-50.0) L 05/20/19 07:30 MCV 98.1 fL (80-95) H 05/20/19 07:30 MCH 33.0 pg (27.0-33.0) 05/20/19 07:30 MCHC 33.6 g/dL (32.0-36.0) 05/20/19 07:30 RDW 12.4 % (11.8-14.1) 05/20/19 07:30 Plt Count 353 x1000/uL (130-400) 05/20/19 07:30 MPV 10.3 fL (8.0-11.0) 05/20/19 07:30 Immature Gran % See Differential 05/20/19 07:30 Neutrophils % 76.0 05/20/19 07:30 Band Neutrophils % 2.0 % 05/20/19 07:30 Lymphocytes % 6.0 05/20/19 07:30 Atypical Lymphs % 2 05/20/19 07:30 Monocytes % 6.0 05/20/19 07:30 Eosinophils % 3.0 05/20/19 07:30 Basophils % 1.0 05/20/19 07:30 Metamyelocytes % 2.0 % 05/20/19 07:30 Myelocytes % 2.0 % 05/20/19 07:30 Absolute Neutrophils 10.42 k/cumm (1.2-6.7) H 05/20/19 07:30 Absolute Lymphocytes 1.07 k/cumm (1.2-3.4) L 05/20/19 07:30 Absolute Monocytes 0.80 k/cumm (0.11-0.7) H 05/20/19 07:30 Absolute Eosinophils 0.40 k/cumm (0.0-0.7) 05/20/19 07:30 Absolute Basophils 0.13 k/cumm (0.0-0.2) 05/20/19 07:30 Differential Comment Manual differential 05/20/19 07:30 RBC Morphology Normal 05/20/19 07:30 Polychromasia Present 05/19/19 06:35 Sodium 138 mmol/L (136-145) 05/20/19 07:30 Potassium 3.4 mmol/L (3.5-5.1) L 05/20/19 07:30 Chloride 102 mmol/L (98-107) 05/20/19 07:30 Carbon Dioxide 24.4 mmol/L (21.0-32.0) 05/20/19 07:30 Anion Gap 11.6 mmol/L (3-11) H 05/20/19 07:30 BUN 20 mg/dL (7-18) H D 05/20/19 07:30 Creatinine 1.39 mg/dL (0.70-1.30) H 05/20/19 07:30 Estimated GFR/1.73 m2 49.42 (mL/min/1.73m2) 05/20/19 07:30 Glucose 121 mg/dL (74-106) H 05/20/19 07:30 Lactate 1.1 mmol/L (0.6-1.4) 05/17/19 12:10 Calcium 9.0 mg/dL (8.5-10.1) 05/20/19 07:30 Magnesium 2.0 mg/dL (1.8-2.4) 05/20/19 07:30 Total Bilirubin 1.3 mg/dL (0.2-1.0) H 05/17/19 12:10 AST 17 U/L (15-37) 05/17/19 12:10 ALT 17 U/L (16-63) 05/17/19 12:10 Alkaline Phosphatase 103 U/L (46-116) 05/17/19 12:10 Troponin I < 0.05 ng/Ml (<0.06) 05/19/19 12:35 C-Reactive Protein 21.66 mg/dL (0.0-0.3) H 05/19/19 06:35 NT-Pro-B Natriuret Pep 453 pg/mL (<300) 05/19/19 06:35 Total Protein 6.8 g/dL (6.4-8.2) 05/17/19 12:10 Albumin 3.1 g/dL (3.4-5.0) L 05/17/19 12:10 Procalcitonin 0.1 ng/mL 05/19/19 06:35 Adenovirus DNA Negative (Negative) 05/19/19 10:07 Human Metapneumovir RNA Negative (Negative) 05/19/19 10:07 Urine Legionella Ag Negative (Negative) 05/17/19 14:30 Parainfluenza 1 (PCR) Negative (Negative) 05/19/19 10:07 Parainfluenza 2 (PCR) Negative (Negative) 05/19/19 10:07 Parainfluenza 3 (PCR) Negative (Negative) 05/19/19 10:07 Parainfluenza 4 (PCR) Negative (Negative) 05/19/19 10:07 Resp Viral Spec Desc Not Applicable 05/19/19 10:07 Rhinovirus (PCR) Negative (Negative) 05/19/19 10:07
--- NOTE | 2019-05-20 15:54 | PT.INTREAT ---
Date of service: 05/20/19 Time of Service: 15:54 PT Notes Visit Reasons: SEPSIS DUE TO COMMUNITY ACQUIRED PNEUMONIA Inpatient Physical Therapy Treatment Note [facility] Date: 05/20/2019 PRECAUTIONS: Fall, activity as tolerated SUBJECTIVE: Scot reports that he is feeling worse today. He reports that he has been nearly fainting while walking to/from his bathroom within his room, due to SOB> OBJECTIVE: PAIN: No c/o pain BED MOBILITY/TRANSFERS Sit-stand: SBA Stand-sit: SBA GAIT Assistive Device: FWW Weight bearing: Full Assist: CGA Distance: 50' x2 Deviation: Seated rest x1 (x3 minutes), standing rest x3, increased SOB ASSESSMENT: Patient tolerated session with complaints of increased fatigue and SOB with activity. He was able to tolerate a progression in gait distance with FWW support and CGA with wheelchair follow, with c/o increased SOB. Patient would benefit from continued general conditioning and strengthening for improved activity tolerance and mobility. PLAN: Continue with PTs POC TREATMENT CODE/TIME: 25 minutes; [id number] x2
--- NOTE | 2019-05-20 15:57 | PT.INNT ---
Date of service: 05/20/19 Time of Service: 15:57 PT Notes Visit Reasons: SEPSIS DUE TO COMMUNITY ACQUIRED PNEUMONIA 05/20/19 Patient refused afternoon PT session x2, stating I'm too tired, I didn't sleep, I'm too weak, and I just don't feel good. Will attempt to resume PT services tomorrow morning.
[2019-05-20] MEDS: Ibuprofen 400 MG TAB PO (18:25)
--- NOTE | 2019-05-20 21:42 | CMPROGNOTE_ITS ---
Care Management Progress Note S/O: Gordy continues to be treated and monitored closely at this time. Gordy and Roselia are open to increased home service supports due to weakness and inability to currently care for self. CM discussed further evaluations as Gordy feels too weak to engage at this time. CM continues to follow. A: 78 year old male admitted to [facility] 05/17/19 for Sepsis due to CAP P: Gordy will return home when ready per MD. Anticipate once more stable, he will be evaluated by PT/OT for discharge planning considerations. He will follow up with his new PCP and plan of care as prescribed. He will transport via private vehicle with his , Roselia.
[2019-05-21] VITALS (12 sets, daily range): BP systolic 95–168; BP diastolic 56–78; PULSE 78–103; RESP 2–22; TEMP 36.7–37.1; O2SAT 90–98
[2019-05-21] MEDS: Normal Saline Flush 10 ML SYR IVP ×2 (01:02→14:04)
[2019-05-21] MEDS: Potassium Chloride 20 MEQ TABCR 40 MEQ PO (01:03)
[2019-05-21] MEDS: Albuterol/Ipratropium 3 ML UPD VIAL UPD ×4 (01:06→18:08)
[2019-05-21 07:09] LABS: HCT 35.5 % (40.0-50.0); HGB 11.7 g/dL (13.5-17.5); Mean Corpuscular Hemoglobin 32.6 pg (27.0-33.0); Mean Corpuscular Volume 98.9 fL (80-95); Mean Platelet Volume 10.6 fL (8.0-11.0); RBC 3.59 m/cumm (4.50-6.00); RBC Distribution Width 12.5 % (11.8-14.1); White Blood Cell Count 12.17 k/cumm (4.4-10.8)
[2019-05-21 07:21] LABS: Anion Gap 12.6 mmol/L (3-11); BUN 23 mg/dL (7-18); CO2 23.4 mmol/L (21.0-32.0); CREATININE 1.32 mg/dL (0.70-1.30); Calcium 8.9 mg/dL (8.5-10.1); Chloride 105 mmol/L (98-107); Estimated GFR 52.46 (mL/min/1.73m2); Glucose 119 mg/dL (74-106); Sodium 141 mmol/L (136-145)
[2019-05-21 07:33] LABS: Absolute Lymphocyte Count 1.22 k/cumm (1.2-3.4); Absolute Neutrophil Count 8.64 k/cumm (1.2-6.7)
[2019-05-21 07:34] LABS: Absolute Eosinophil Count 0.37 k/cumm (0.0-0.7); Absolute Monocyte Count 1.95 k/cumm (0.11-0.7); C-Reactive Protein > 25.00 mg/dL (0.0-0.3); Diff Comment Manual Differential; Platelet Count 400 x1000/uL (130-400); Polychromasia Present
--- NOTE | 2019-05-21 08:33 | PT.INTREAT ---
Date of service: 05/21/19 Time of Service: 08:33 PT Notes Visit Reasons: SEPSIS DUE TO COMMUNITY ACQUIRED PNEUMONIA Inpatient Physical Therapy Treatment Note [facility] Date: 05/21/19 PRECAUTIONS: Fall SUBJECTIVE: Scot reports that he is feeling much better than yesterday. He is agreeable to participating in PT. OBJECTIVE: PAIN: No c/o pain BED MOBILITY/TRANSFERS Supine-sit: I Sit-stand: I Stand-sit: I GAIT Assistive Device: FWW Weight bearing: Full Assist: S Distance: 100' +50' Deviation: Wheelchair follow, seated rest x1 due to complaints of B LE weakness, 5L O2 via NC ASSESSMENT: Patient tolerated session with complaints of increased B LE weakness with gait training. He was able to tolerate a progression in gait distance with FWW support and supervision, requiring seated rest x1. Patient would benefit from continued general conditioning and global strengthening for improved activity tolerance and mobility. PLAN: Continue with PTs POC TREATMENT CODE/TIME: Session 1: 20 minutes; 95099
[2019-05-21] MEDS: Docusate Sodium 100 MG CAP PO (09:14)
[2019-05-21] MEDS: Lisinopril 5 MG TAB PO (09:14)
[2019-05-21] MEDS: ARIPiprazole 2 MG TAB PO (09:15)
[2019-05-21] MEDS: guaiFENesin 600 MG TABCR PO ×2 (09:15→20:03)
[2019-05-21] MEDS: Sertraline 50 MG TAB 100 MG PO (09:15)
[2019-05-21] MEDS: Benzonatate 100 MG CAP PO ×3 (09:15→20:03)
[2019-05-21] MEDS: levoFLOXacin 500 MG, levoFLOXacin 250 MG 750 MG PO (09:15)
[2019-05-21] MEDS: Tamsulosin 0.4 MG CAPCR PO (09:16)
[2019-05-21] MEDS: Allopurinol 300 MG TAB PO (09:16)
[2019-05-21] MEDS: Donepezil 5 MG TAB PO (09:16)
[2019-05-21 11:44] LABS: Vancomycin, Trough 19.5 ug/mL (10.0-20.0)
[2019-05-21] MEDS: Enoxaparin 40 MG/0.4 ML SYR SC (14:36)
--- NOTE | 2019-05-21 16:41 | W.PM.PROGNOT ---
Date of Service Date of service: 05/21/19 Time of Service: 16:47 Assessment and Plan Assessment and plan (1) Pulmonary edema: Status: Acute Assessment and plan: Prior echo from 2017 showed diastolic dysfunction. Cardiogenic pulmonary edema noted on CT. Has been on lasix drip, has had significant output over the last 24-48 hours. Lasix drip discontinued, transitioned to PO lasix. Wean oxygen. Continue to monitor. (2) CAP (community acquired pneumonia): Status: Acute Assessment and plan: He has been afebrile x24 hours. Leukocytosis improving. shortness of breath and cough are improving. He is currently on day #4 of Levaquin and day #3 of IV vancomycin. Continue current regimen. Blood cultures with no growth to date. Repeat CBC in the morning. (3) Dementia: Status: Chronic Assessment and plan: Currently undergoing evaluation for dementia. Alert and oriented and answering questions appropriately today. Continue Abilify and Aricept. (4) Lumbosacral radiculopathy: Status: Acute Assessment and plan: Scheduled for lumbosacral surgery on 1212, continue physical therapy. (5) GERD (gastroesophageal reflux disease): Status: Inactive Assessment and plan: Stable. Continue Zantac. (6) Depression: Status: Chronic Assessment and plan: Stable. Continue Zoloft. (7) Hypertension: Status: None Assessment and plan: Blood pressure has been low in the setting of acute illness and while on Lasix drip. Lasix drip discontinued. Continue to monitor blood pressure. (8) YASMINE (acute kidney injury): Status: Acute Assessment and plan: Creatinine above baseline on Lasix drip today. Discontinue Lasix drip. Begin oral Lasix. Repeat BMP in the morning. (9) DVT prophylaxis: Status: Acute Assessment and plan: Subcutaneous Lovenox. (10) Discharge planning issues: Status: Acute Assessment and plan: He is a full code. This case was discussed with Dr. Davison who is in agreement. Subjective Subjective Interval history since last seen: Mr. Putnam reports some improvement, he has no shortness of breath at rest. He continues to have shortness of breath with activity. He denies wheezing. He continues to have a cough productive of white sputum, improving. He denies chest pain/pressure, palpitations. He is eating and drinking and tolerating his diet without nausea, vomiting or diarrhea. He had normal bowel movement today. He is voiding currently on the Lasix drip, no dysuria or hematuria. He denies lower extremity edema. He remains on oxygen, he does not have home oxygen. Exam Narrative Exam Narrative: General: Elderly man, sitting up in the recliner with his legs elevated, appears ill. Alert and oriented, answers questions appropriately, pleasant cooperative. Does not appear to be in acute distress. HEENT: Normocephalic, atraumatic, pupils symmetrical and round, EOMI, mucous membranes moist. Neck: Supple, no JVD. Cardiovascular: Heart has regular rate rhythm, non-tachycardic, no murmur appreciated. Respiratory: Respirations appear even and unlabored. Rales to bilateral bases, no wheezing. GI: Normoactive bowel sounds, abdomen soft, nontender on palpation, nondistended. Extremities: No clubbing, cyanosis or edema. Pedal pulses palpable bilaterally. Objective Objective Clinical Data: Abnormal lab results 05/21/19 05/21/19 Range/Units 06:20 06:20 WBC 12.17 H (4.4-10.8) k/cumm RBC 3.59 L (4.50-6.00) m/cumm Hgb 11.7 L (13.5-17.5) g/dL Hct 35.5 L (40.0-50.0) % MCV 98.9 H (80-95) fL Absolute Neutrophils 8.64 H (1.2-6.7) k/cumm Absolute Monocytes 1.95 H (0.11-0.7) k/cumm Anion Gap 12.6 H (3-11) mmol/L BUN 23 H (7-18) mg/dL Creatinine 1.32 H (0.70-1.30) mg/dL Glucose 119 H (74-106) mg/dL C-Reactive Protein > 25.00 H (0.0-0.3) mg/dL Vital Signs Temperature 37.0 C 05/21/19 11:30 Temperature Source Tympanic 05/21/19 11:30 Pulse 88 05/21/19 12:44 Pulse Rhythm Regular 05/21/19 09:00 Pulse 94 H 05/17/19 14:31 Respiratory Rate 18 05/21/19 12:44 Respiratory Effort Short of Breath 05/21/19 09:00 Respiratory Depth Normal 05/21/19 09:00 Respiratory Pattern Normal 05/21/19 09:00 Blood Pressure 100/61 05/21/19 11:30 Blood Pressure Mean 77 05/17/19 14:31 Blood Pressure Position Supine 05/17/19 10:04 Pulse Oximetry 98 05/21/19 12:44 Oxygen Delivery Method Nasal Cannula 05/21/19 12:39 Oxygen Flow Rate 3 05/21/19 12:39 Pain Level 0 05/21/19 11:30 Comment 05/20/19 20:13 Intake & Output 05/20/19 05/21/19 05/21/19 23:59 11:59 23:59 Intake Total 538.333 / 888.333 620 / 952.167 332.167 / 952.167 Output Total 1451 / 2851 775 / 1250 475 / 1250 Balance -912.667 / -1962.667 -155 / -297.833 -142.833 / -297.833 Weight 96.7 kg Intake: IV 298.333 / 648.333 260 / 352.167 92.167 / 352.167 Oral 240 / 240 360 / 600 240 / 600 Output: Urine 1450 / 2850 775 / 1250 475 / 1250 Stool Other: Urine Color Light Sofia Yellow Pale Urine Appearance Clear Clear Clear Urine Odor Normal Normal Normal Comment Pt states he feels like he isnt peeing enough. Stool Size Moderate Moderate Stool Characteristics Soft Liquid Formed Brown Voiding Methods Urinal Urinal Urinal Laboratory Results WBC 12.17 k/cumm (4.4-10.8) H 05/21/19 06:20 RBC 3.59 m/cumm (4.50-6.00) L 05/21/19 06:20 Hgb 11.7 g/dL (13.5-17.5) L 05/21/19 06:20 Hct 35.5 % (40.0-50.0) L 05/21/19 06:20 MCV 98.9 fL (80-95) H 05/21/19 06:20 MCH 32.6 pg (27.0-33.0) 05/21/19 06:20 MCHC 33.0 g/dL (32.0-36.0) 05/21/19 06:20 RDW 12.5 % (11.8-14.1) 05/21/19 06:20 Plt Count 400 x1000/uL (130-400) 05/21/19 06:20 MPV 10.6 fL (8.0-11.0) 05/21/19 06:20 Immature Gran % 0.0 05/21/19 06:20 Neutrophils % 71.0 05/21/19 06:20 Band Neutrophils % 2.0 % 05/20/19 07:30 Lymphocytes % 10.0 05/21/19 06:20 Atypical Lymphs % 2 05/20/19 07:30 Monocytes % 16.0 05/21/19 06:20 Eosinophils % 3.0 05/21/19 06:20 Basophils % 0.0 05/21/19 06:20 Metamyelocytes % 2.0 % 05/20/19 07:30 Myelocytes % 2.0 % 05/20/19 07:30 Absolute Neutrophils 8.64 k/cumm (1.2-6.7) H 05/21/19 06:20 Absolute Lymphocytes 1.22 k/cumm (1.2-3.4) 05/21/19 06:20 Absolute Monocytes 1.95 k/cumm (0.11-0.7) H 05/21/19 06:20 Absolute Eosinophils 0.37 k/cumm (0.0-0.7) 05/21/19 06:20 Absolute Basophils 0.00 k/cumm (0.0-0.2) 05/21/19 06:20 Differential Comment Manual differential 05/21/19 06:20 RBC Morphology See below 05/21/19 06:20 Polychromasia Present 05/21/19 06:20 Sodium 141 mmol/L (136-145) 05/21/19 06:20 Potassium 4.0 mmol/L (3.5-5.1) 05/21/19 06:20 Chloride 105 mmol/L (98-107) 05/21/19 06:20 Carbon Dioxide 23.4 mmol/L (21.0-32.0) 05/21/19 06:20 Anion Gap 12.6 mmol/L (3-11) H 05/21/19 06:20 BUN 23 mg/dL (7-18) H 05/21/19 06:20 Creatinine 1.32 mg/dL (0.70-1.30) H 05/21/19 06:20 Estimated GFR/1.73 m2 52.46 (mL/min/1.73m2) 05/21/19 06:20 Glucose 119 mg/dL (74-106) H 05/21/19 06:20 Lactate 1.1 mmol/L (0.6-1.4) 05/17/19 12:10 Calcium 8.9 mg/dL (8.5-10.1) 05/21/19 06:20 Magnesium 2.0 mg/dL (1.8-2.4) 05/21/19 06:20 Total Bilirubin 1.3 mg/dL (0.2-1.0) H 05/17/19 12:10 AST 17 U/L (15-37) 05/17/19 12:10 ALT 17 U/L (16-63) 05/17/19 12:10 Alkaline Phosphatase 103 U/L (46-116) 05/17/19 12:10 Troponin I < 0.05 ng/Ml (<0.06) 05/19/19 12:35 C-Reactive Protein > 25.00 mg/dL (0.0-0.3) H 05/21/19 06:20 NT-Pro-B Natriuret Pep 453 pg/mL (<300) 05/19/19 06:35 Total Protein 6.8 g/dL (6.4-8.2) 05/17/19 12:10 Albumin 3.1 g/dL (3.4-5.0) L 05/17/19 12:10 Procalcitonin 0.1 ng/mL 05/19/19 06:35 Vancomycin Trough 19.5 ug/mL (10.0-20.0) 05/21/19 11:11 Adenovirus DNA Negative (Negative) 05/19/19 10:07 Human Metapneumovir RNA Negative (Negative) 05/19/19 10:07 Urine Legionella Ag Negative (Negative) 05/17/19 14:30 Parainfluenza 1 (PCR) Negative (Negative) 05/19/19 10:07 Parainfluenza 2 (PCR) Negative (Negative) 05/19/19 10:07 Parainfluenza 3 (PCR) Negative (Negative) 05/19/19 10:07 Parainfluenza 4 (PCR) Negative (Negative) 05/19/19 10:07 Resp Viral Spec Desc Not Applicable 05/19/19 10:07 Rhinovirus (PCR) Negative (Negative) 05/19/19 10:07
[2019-05-21] MEDS: Furosemide 20 MG TAB PO (16:49)
--- NOTE | 2019-05-21 20:31 | PDOC.CMPRO ---
- If Service Date Differs Date of service: 05/21/19 Time of Service: 20:31 Care Management Progress Note S/O: Gordy was sitting up in his chair when CM met with him. He was eating his lunch with his daughter in the room visiting. His daughter, Renita reported that she works as a caregiver at [employer], which helps to keep seniors in their homes by providing in home care. Gordy reports feeling better, but not ready to go home. He is currently on 3L of oxygen and being closely monitored. CM discussed the possibility of additional support at home, which Gordy was not agreeable to. CM, patient and family agreed to reevaluate when he was closer to discharging home. CM will continue to follow. A: 78 year old male admitted to [facility] 05/17/19 for Sepsis due to CAP P: Anticipate Gordy will go home when medically cleared, possibly with new orders for RN, PT/OT. His family will transport him home via private vehicle when ready. He will have follow up appointments as recommended. CM will continue to follow and support patient, family and staff with discharge planning considerations.
[2019-05-22] VITALS (11 sets, daily range): BP systolic 103–143; BP diastolic 51–74; PULSE 82–99; RESP 2–22; TEMP 36.6–37.8; O2SAT 90–97
[2019-05-22] MEDS: Albuterol/Ipratropium 3 ML UPD VIAL UPD ×4 (00:02→18:14)
[2019-05-22] MEDS: Normal Saline Flush 10 ML SYR IVP ×2 (02:24→12:11)
[2019-05-22 07:35] LABS: Absolute Basophil Count 0.03 k/cumm (0.0-0.2); Absolute Eosinophil Count 0.41 k/cumm (0.0-0.7); Absolute Monocyte Count 1.35 k/cumm (0.11-0.7); Absolute Neutrophil Count 10.24 k/cumm (1.2-6.7); Basophils % 0.2; HCT 34.4 % (40.0-50.0); HGB 11.5 g/dL (13.5-17.5); Immature Grans % 1.5; Lymphocytes % 9.6; Mean Corp. HGB Concentration 33.4 g/dL (32.0-36.0); Mean Corpuscular Hemoglobin 32.8 pg (27.0-33.0); Mean Platelet Volume 10.7 fL (8.0-11.0); Neutrophils % 75.7; Platelet Count 396 x1000/uL (130-400); RBC 3.51 m/cumm (4.50-6.00); RBC Distribution Width 12.6 % (11.8-14.1); White Blood Cell Count 13.53 k/cumm (4.4-10.8)
[2019-05-22 07:44] LABS: Anion Gap 13.4 mmol/L (3-11); BUN 24 mg/dL (7-18); CO2 24.6 mmol/L (21.0-32.0); CREATININE 1.28 mg/dL (0.70-1.30); Calcium 8.7 mg/dL (8.5-10.1); Chloride 100 mmol/L (98-107); Estimated GFR 54.35 (mL/min/1.73m2); Glucose 122 mg/dL (74-106); Magnesium 1.9 mg/dL (1.8-2.4); Potassium 3.5 mmol/L (3.5-5.1); Sodium 138 mmol/L (136-145)
[2019-05-22] MEDS: Sertraline 50 MG TAB 100 MG PO (09:31)
[2019-05-22] MEDS: Tamsulosin 0.4 MG CAPCR PO (09:31)
[2019-05-22] MEDS: Benzonatate 100 MG CAP PO ×3 (09:31→20:33)
[2019-05-22] MEDS: Furosemide 20 MG TAB PO ×2 (09:31→15:41)
[2019-05-22] MEDS: levoFLOXacin 500 MG, levoFLOXacin 250 MG 750 MG PO (09:32)
[2019-05-22] MEDS: Docusate Sodium 100 MG CAP PO (09:32)
[2019-05-22] MEDS: guaiFENesin 600 MG TABCR PO ×2 (09:32→20:33)
[2019-05-22] MEDS: Allopurinol 300 MG TAB PO (09:32)
[2019-05-22] MEDS: Lisinopril 5 MG TAB PO (09:32)
[2019-05-22] MEDS: Donepezil 5 MG TAB PO (09:32)
[2019-05-22] MEDS: ARIPiprazole 2 MG TAB PO (09:33)
[2019-05-22] MEDS: Potassium Chloride 20 MEQ TABCR PO (10:32)
--- NOTE | 2019-05-22 10:41 | PT.INTREAT ---
Date of service: 05/22/19 Time of Service: 10:41 PT Notes Visit Reasons: SEPSIS DUE TO COMMUNITY ACQUIRED PNEUMONIA 05/22/19 Pt refused PT treatment this AM. He notes that he got up to go to the bathroom earlier this morning and he felt like he was going to have a heart attack. He states he is too tired to work with me this morning and to check back this afternoon. Aide Avery, PILE DRIVING SUPERINTENDENT
[2019-05-22] MEDS: Furosemide 20 MG/2 ML VIAL IVP (12:10)
--- NOTE | 2019-05-22 12:58 | W.NUTCONSULT ---
Date of service: 05/22/19 Time of Service: 12:59 Nutritional Consult ASSESSMENT: 78 year old gentleman with pulmonary edema, CHF, YASMINE, CAP with dementia. Following heart healthy diet with excellent po intake. BMI indicates class 1 obesity. Not considered at nutritional risk at this time. screen by Fozia Sanderson MS, RDN INTERVENTION: will monitor po intake and weight trends and adjust meal plan accordingly Time Spent in Nutritional Counseling and Treatment: 0 time spent face to face
--- NOTE | 2019-05-22 13:43 | PT.INNT ---
Date of service: 05/22/19 Time of Service: 13:43 PT Notes Visit Reasons: SEPSIS DUE TO COMMUNITY ACQUIRED PNEUMONIA 05/22/19 Refused PT services this PM stating he is SOB and he is not getting out of his bed. Aide Avery, CONTINUOUS WAVE OPERATOR
--- NOTE | 2019-05-22 15:35 | W.PM.PROGNOT ---
Date of Service Date of service: 05/22/19 Time of Service: 15:35 Assessment and Plan Assessment and plan (1) Pulmonary edema: Status: Acute Assessment and plan: Prior echo from 2017 showed diastolic dysfunction. Cardiogenic pulmonary edema noted on CT. He was on lasix drip, had significant output. He transitioned to PO lasix yesterday. Given his ongoing rales and shortness of breath he received an additional IV lasix dose today. He continue to require 4 liters of oxygen via nasal cannula to maintain saturations in the low 90s. Attempted to get a hold of Dr. Whalen, Pulmonology for consultation, will continue to attempt to discuss this case with her. Recheck BNP and chest x-ray. (2) CAP (community acquired pneumonia): Status: Acute Assessment and plan: He has been afebrile x48 hours. Leukocytosis without significant improvement. Continues to have shortness of breath with exertion and rales on exam. He is currently on day #5 of Levaquin and day #4 of IV vancomycin. Repeat chest x-ray as above. Consult pulmonology as above. Possible inflammatory process, CRP >25. Blood cultures with no growth to date. Continue to follow CBC. (3) Dementia: Status: Chronic Assessment and plan: Currently undergoing evaluation for dementia. Alert and oriented and answering questions appropriately today. Continue Abilify and Aricept. (4) Lumbosacral radiculopathy: Status: Acute Assessment and plan: He was scheduled for lumbosacral surgery on 05/23, continue physical therapy. He will need to reschedule his surgery when he is not acutely ill. (5) GERD (gastroesophageal reflux disease): Status: Inactive Assessment and plan: Stable. Continue Zantac. (6) Depression: Status: Chronic Assessment and plan: Stable. Continue Zoloft. (7) Hypertension: Status: None Assessment and plan: Blood pressure has been low normal in the setting of acute illness. Continue to monitor blood pressure. (8) YASMINE (acute kidney injury): Status: Acute Assessment and plan: Creatinine improved off Lasix drip. Continue to monitor renal function. (9) DVT prophylaxis: Status: Acute Assessment and plan: Subcutaneous Lovenox. (10) Discharge planning issues: Status: Acute Assessment and plan: He is a full code. This case was discussed with Dr. Davison who is in agreement. Subjective Subjective Interval history since last seen: Mr. Putnam continues to endorse shortness of breath, especially with exertion, difficulty taking deep breaths. He endorses midsternal chest discomfort when he takes a deep breath. He reports dizziness with exertion. He was on a lasix drip until yesterday, he had significant urinary output with the lasix. He reports a poor appetite, he is not eating. He denies nausea, vomiting or diarrhea. He states he feels terrible. His is concerned that he does not appear to be improving. Exam Narrative Exam Narrative: General: Elderly man, laying in bed, appears ill. Alert and oriented, answers questions appropriately, pleasant cooperative. Does not appear to be in acute distress. HEENT: Normocephalic, atraumatic, pupils symmetrical and round, EOMI, mucous membranes moist. Neck: Supple, no JVD. Cardiovascular: Heart has regular rate rhythm, non-tachycardic, no murmur appreciated. Respiratory: Respirations appear even and unlabored. Rales to bilateral bases, no wheezing. GI: Normoactive bowel sounds, abdomen soft, nontender on palpation, nondistended. Extremities: No clubbing, cyanosis or edema. Pedal pulses palpable bilaterally. Objective Objective Clinical Data: Abnormal lab results 05/22/19 05/22/19 Range/Units 07:00 07:00 WBC 13.53 H (4.4-10.8) k/cumm RBC 3.51 L (4.50-6.00) m/cumm Hgb 11.5 L (13.5-17.5) g/dL Hct 34.4 L (40.0-50.0) % MCV 98.0 H (80-95) fL Absolute Neutrophils 10.24 H (1.2-6.7) k/cumm Absolute Monocytes 1.35 H (0.11-0.7) k/cumm Anion Gap 13.4 H (3-11) mmol/L BUN 24 H (7-18) mg/dL Glucose 122 H (74-106) mg/dL Vital Signs Temperature 37.6 C H 05/22/19 11:15 Temperature Source Tympanic 05/22/19 11:15 Pulse 82 05/22/19 12:16 Pulse Rhythm Regular 05/22/19 00:05 Pulse 94 H 05/17/19 14:31 Respiratory Rate 18 05/22/19 12:16 Respiratory Effort Short of Breath 05/22/19 00:05 Respiratory Depth Normal 05/22/19 00:05 Respiratory Pattern Normal 05/22/19 00:05 Blood Pressure 103/51 L 05/22/19 11:15 Blood Pressure Mean 77 05/17/19 14:31 Blood Pressure Position Supine 05/17/19 10:04 Pulse Oximetry 94 L 05/22/19 12:16 Oxygen Delivery Method Nasal Cannula 05/22/19 12:08 Oxygen Flow Rate 4 05/22/19 12:08 Pain Level 0 05/22/19 11:15 Comment 05/20/19 20:13 Intake & Output 05/21/19 05/22/19 05/22/19 23:59 11:59 23:59 Intake Total 624.334 / 1244.334 572.167 / 572.167 Output Total 875 / 1650 850 / 850 Balance -250.666 / -405.666 -277.833 / -277.833 Weight 96.5 kg Intake: IV 384.334 / 644.334 92.167 / 92.167 Oral 240 / 600 480 / 480 Output: Urine 875 / 1650 850 / 850 Other: Urine Color Yellow Yellow Urine Appearance Clear Clear Urine Odor Normal None Stool Size Moderate Stool Characteristics Liquid Voiding Methods Toilet Toilet Laboratory Results WBC 13.53 k/cumm (4.4-10.8) H 05/22/19 07:00 RBC 3.51 m/cumm (4.50-6.00) L 05/22/19 07:00 Hgb 11.5 g/dL (13.5-17.5) L 05/22/19 07:00 Hct 34.4 % (40.0-50.0) L 05/22/19 07:00 MCV 98.0 fL (80-95) H 05/22/19 07:00 MCH 32.8 pg (27.0-33.0) 05/22/19 07:00 MCHC 33.4 g/dL (32.0-36.0) 05/22/19 07:00 RDW 12.6 % (11.8-14.1) 05/22/19 07:00 Plt Count 396 x1000/uL (130-400) 05/22/19 07:00 MPV 10.7 fL (8.0-11.0) 05/22/19 07:00 Immature Gran % 1.5 05/22/19 07:00 Neutrophils % 75.7 05/22/19 07:00 Band Neutrophils % 2.0 % 05/20/19 07:30 Lymphocytes % 9.6 05/22/19 07:00 Atypical Lymphs % 2 05/20/19 07:30 Monocytes % 10.0 05/22/19 07:00 Eosinophils % 3.0 05/22/19 07:00 Basophils % 0.2 05/22/19 07:00 Metamyelocytes % 2.0 % 05/20/19 07:30 Myelocytes % 2.0 % 05/20/19 07:30 Absolute Neutrophils 10.24 k/cumm (1.2-6.7) H 05/22/19 07:00 Absolute Lymphocytes 1.30 k/cumm (1.2-3.4) 05/22/19 07:00 Absolute Monocytes 1.35 k/cumm (0.11-0.7) H 05/22/19 07:00 Absolute Eosinophils 0.41 k/cumm (0.0-0.7) 05/22/19 07:00 Absolute Basophils 0.03 k/cumm (0.0-0.2) 05/22/19 07:00 Differential Comment Manual differential 05/21/19 06:20 RBC Morphology See below 05/21/19 06:20 Polychromasia Present 05/21/19 06:20 Sodium 138 mmol/L (136-145) 05/22/19 07:00 Potassium 3.5 mmol/L (3.5-5.1) 05/22/19 07:00 Chloride 100 mmol/L (98-107) 05/22/19 07:00 Carbon Dioxide 24.6 mmol/L (21.0-32.0) 05/22/19 07:00 Anion Gap 13.4 mmol/L (3-11) H 05/22/19 07:00 BUN 24 mg/dL (7-18) H 05/22/19 07:00 Creatinine 1.28 mg/dL (0.70-1.30) 05/22/19 07:00 Estimated GFR/1.73 m2 54.35 (mL/min/1.73m2) 05/22/19 07:00 Glucose 122 mg/dL (74-106) H 05/22/19 07:00 Lactate 1.1 mmol/L (0.6-1.4) 05/17/19 12:10 Calcium 8.7 mg/dL (8.5-10.1) 05/22/19 07:00 Magnesium 1.9 mg/dL (1.8-2.4) 05/22/19 07:00 Total Bilirubin 1.3 mg/dL (0.2-1.0) H 05/17/19 12:10 AST 17 U/L (15-37) 05/17/19 12:10 ALT 17 U/L (16-63) 05/17/19 12:10 Alkaline Phosphatase 103 U/L (46-116) 05/17/19 12:10 Troponin I < 0.05 ng/Ml (<0.06) 05/19/19 12:35 C-Reactive Protein > 25.00 mg/dL (0.0-0.3) H 05/21/19 06:20 NT-Pro-B Natriuret Pep 453 pg/mL (<300) 05/19/19 06:35 Total Protein 6.8 g/dL (6.4-8.2) 05/17/19 12:10 Albumin 3.1 g/dL (3.4-5.0) L 05/17/19 12:10 Procalcitonin 0.1 ng/mL 05/19/19 06:35 Vancomycin Trough 19.5 ug/mL (10.0-20.0) 05/21/19 11:11 Adenovirus DNA Negative (Negative) 05/19/19 10:07 Human Metapneumovir RNA Negative (Negative) 05/19/19 10:07 Urine Legionella Ag Negative (Negative) 05/17/19 14:30 Parainfluenza 1 (PCR) Negative (Negative) 05/19/19 10:07 Parainfluenza 2 (PCR) Negative (Negative) 05/19/19 10:07 Parainfluenza 3 (PCR) Negative (Negative) 05/19/19 10:07 Parainfluenza 4 (PCR) Negative (Negative) 05/19/19 10:07 Resp Viral Spec Desc Not Applicable 05/19/19 10:07 Rhinovirus (PCR) Negative (Negative) 05/19/19 10:07
[2019-05-22] MEDS: Enoxaparin 40 MG/0.4 ML SYR SC (15:42)
--- NOTE | 2019-05-22 16:42 | DI.RAD_ITS ---
EXAM: XR CHEST 2V PA LATERAL INDICATION: ongoing hypoxia, shortness of breath with activity. COMPARISON: XR CHEST 2V PA LATERAL from 05/17/2019 CT CHEST PE CTA from 05/19/2019 TECHNIQUE: 2D digital imaging was performed. FINDINGS: The heart is enlarged. There is minimal blunting at the right costophrenic angle. The lungs are not well inflated. There are underlying interstitial changes. Superimposed infiltrates are seen greate st in the right upper and left lower lobes. Findings appear stable.
[2019-05-22 16:50] LABS: NT-proBNP 192 pg/mL (<300)
--- NOTE | 2019-05-22 17:04 | DI.VRAD_ITS ---
PROCEDURE INFORMATION: Exam: XR Chest, 2 Views Exam date and time: 05/22/2019 4:39 PM Age: 78 years old Clinical history: Patient HX: Ongoing hypoxia, shortness of breath with activity TECHNIQUE: Imaging protocol: XR of the chest Views: 2 views. COMPARISON: CR XR CHEST 2V PA LATERAL 05/19/2019 11:04 AM FINDINGS: Lungs: No significant interval change in hazy opacification in the right upper incomplete left lung with prominent interstitial markings. More confluent left basilar opacities also appear unchanged. Pleural space: Unremarkable. No pleural effusion. No pneumothorax. Heart/Mediastinum: Unremarkable. No cardiomegaly. Bones/joints: Unremarkable. IMPRESSION: No significant interval change in pulmonary opacities as described above, most consistent with pulmonary edema. Of note, superimposed infection, particular at the left base cannot be excluded. Dictated and Authenticated by: Dionicio Harrell MD. Ordering:KIMBERLY Kirkpatrick MD
[2019-05-22] MEDS: methylPREDNISolone SUCC 125 MG VIAL 60 MG IVP (18:15)
--- NOTE | 2019-05-22 18:19 | CMPROGNOTE_ITS ---
- If Service Date Differs Date of service: 05/22/19 Time of Service: 18:19 Care Management Progress Note S/O: Gordy was in bed sleeping when CM attempted to meet with him. His was in the room. She expressed concern about the oxygen he is requiring while at [facility]. She stated that this is all new to him. CM asked her how he was feeling today, which she stated he is exhausted from not being able to breathe. CM asked if they would be interested in services/support in the home after he r eturns, which she was unable to identify at this time. CM will continue to follow and support patient and family with discharge planning considerations. A: Gordy is a 78 year old male admitted to [facility] 05/17/19 for Sepsis due to CAP P: Anticipate Gordy will go home when medically cleared, possibly with new orders for HH RN, PT/OT. His family will transport him home via private vehicle when ready. He will have follow up appointments as recommended. CM will continue to follow and support patient, family and staff with discharge planning considerations.
[2019-05-22 19:39] LABS: Troponin I < 0.05 ng/Ml (<0.06)
[2019-05-23] VITALS (12 sets, daily range): BP systolic 93–145; BP diastolic 53–75; PULSE 73–88; RESP 2–22; TEMP 34–36.9; O2SAT 90–97
[2019-05-23] MEDS: methylPREDNISolone SUCC 125 MG VIAL 60 MG IVP ×4 (01:01→21:35)
[2019-05-23] MEDS: Normal Saline Flush 10 ML SYR IVP ×2 (01:02→10:43)
[2019-05-23] MEDS: Albuterol/Ipratropium 3 ML UPD VIAL UPD ×2 (05:31→13:15)
[2019-05-23 07:09] LABS: Abs Immature Grans 0.12 k/cumm (0.0-0.09); Absolute Basophil Count 0.01 k/cumm (0.0-0.2); Absolute Lymphocyte Count 0.54 k/cumm (1.2-3.4); Absolute Monocyte Count 0.35 k/cumm (0.11-0.7); Absolute Neutrophil Count 9.67 k/cumm (1.2-6.7); Basophils % 0.1; HCT 34.1 % (40.0-50.0); HGB 11.6 g/dL (13.5-17.5); Immature Grans % 1.1; Lymphocytes % 5.1; Mean Corpuscular Hemoglobin 32.9 pg (27.0-33.0); Mean Corpuscular Volume 96.6 fL (80-95); Mean Platelet Volume 10.3 fL (8.0-11.0); Monocytes % 3.3; Neutrophils % 90.4; Platelet Count 388 x1000/uL (130-400); RBC 3.53 m/cumm (4.50-6.00); RBC Distribution Width 12.4 % (11.8-14.1); White Blood Cell Count 10.69 k/cumm (4.4-10.8)
[2019-05-23 07:22] LABS: Anion Gap 13.3 mmol/L (3-11); BUN 34 mg/dL (7-18); CO2 22.7 mmol/L (21.0-32.0); Calcium 8.7 mg/dL (8.5-10.1); Chloride 101 mmol/L (98-107); Estimated GFR 53.39 (mL/min/1.73m2); Glucose 185 mg/dL (74-106); Potassium 3.7 mmol/L (3.5-5.1); Sodium 137 mmol/L (136-145)
[2019-05-23] MEDS: Furosemide 20 MG TAB PO (08:59)
[2019-05-23] MEDS: guaiFENesin 600 MG TABCR PO ×2 (08:59→20:46)
[2019-05-23] MEDS: Sertraline 50 MG TAB 100 MG PO (09:00)
[2019-05-23] MEDS: Docusate Sodium 100 MG CAP PO (09:00)
[2019-05-23] MEDS: levoFLOXacin 500 MG, levoFLOXacin 250 MG 750 MG PO (09:00)
[2019-05-23] MEDS: Donepezil 5 MG TAB PO (09:00)
[2019-05-23] MEDS: Allopurinol 300 MG TAB PO (09:00)
[2019-05-23] MEDS: Potassium Chloride 20 MEQ TABCR PO (09:00)
[2019-05-23] MEDS: Benzonatate 100 MG CAP PO ×3 (09:00→20:46)
[2019-05-23] MEDS: Tamsulosin 0.4 MG CAPCR PO (09:00)
[2019-05-23] MEDS: ARIPiprazole 2 MG TAB PO (09:00)
[2019-05-23] MEDS: Lisinopril 5 MG TAB PO (09:01)
--- NOTE | 2019-05-23 10:03 | PT.INNT ---
Date of service: 05/23/19 Time of Service: 10:03 PT Notes Visit Reasons: SEPSIS DUE TO COMMUNITY ACQUIRED PNEUMONIA 05/23/19 Patient refused morning PT session stating that he continues to not feel well. Will attempt to resume PT services this afternoon.
--- NOTE | 2019-05-23 14:05 | PGE_ITS ---
Date of Service Date of service: 05/23/19 Time of Service: 14:05 Assessment and Plan Assessment and plan (1) Inflammatory disorder of respiratory tract: Status: Acute Assessment and plan: He continues to have significant shortness of breath with activity. Deep breathing induces a dry cough. He continues to require 5 L to maintain oxygen saturations in the low 90s. His procalcitonin was low on admission. His CRP is greater than 25, consistent with an inflammatory process. Repeat imaging has not shown improvement. His white blood cell count normalized. He was initiated on IV steroids last evening. A pulmonology consult was placed. He was seen by Dr. Whalen, Pulmonology, who suspects an inflammatory pulmonary process, possibly cryptogenic organizing pneumonia. This could possibly be a hypersensitivity reaction to a viral process or a new medication. She recommends holding any recent new medications. She also recommends high dose IV steroids with Bactrim for PCP prophylaxis. If he is not getting better in 3 days, she recommends contacting Dr.David Amaya, CT surgery at [facility] [place] for a fluoroscopic lung biopsy Monday (05/27/19). (2) Pulmonary edema: Status: Acute Assessment and plan: Does not appear to be in acute congestive heart failure. He was on a Lasix drip, he put out a significant amount of urine. His BNP yesterday was 192. Hold off on giving him further Lasix for now. Recommendations per pulmonology. (3) CAP (community acquired pneumonia): Status: Acute Assessment and plan: As above. This is likely not a bacterial infection. Levaquin was discontinued today, on day #6. 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 (4) Dementia: Status: Chronic Assessment and plan: Currently undergoing evaluation for dementia. Alert and oriented and answering questions appropriately today. He is on Abilify and Aricept, will discuss these medications with his . If these are new, will be held. (5) Lumbosacral radiculopathy: Status: Acute Assessment and plan: He was scheduled for lumbosacral surgery on 05/23, continue physical therapy. He will need to reschedule his surgery when he has recovered from this acute illness. (6) GERD (gastroesophageal reflux disease): Status: Inactive Assessment and plan: Stable. Continue Zantac. (7) Depression: Status: Chronic Assessment and plan: Stable. Continue Zoloft. (8) Hypertension: Status: None Assessment and plan: Blood pressure has been low normal in the setting of acute illness. Continue to monitor blood pressure. (9) YASMINE (acute kidney injury): Status: Acute Assessment and plan: Creatinine within normal limits. Continue to monitor renal function. (10) DVT prophylaxis: Status: Acute Assessment and plan: Subcutaneous Lovenox. (11) Discharge planning issues: Status: Acute Assessment and plan: He is a full code. Discussed code status, he would like to remain full code. This case was discussed with Dr. Davison who is in agreement. Subjective Subjective Interval history since last seen: Mr. Putnam continues to report shortness of breath with activity and difficulty taking deep breaths. He also reports coughing when he attempts to take a deep breath. He feels fatigued. He is eating today, he did not have an appetite yesterday. He denies wheezing, he has chest pain that goes into his anterior neck when taking a deep breath. No chest pressure or palpitations. He denies abdominal pain, nausea, vomiting or diarrhea. He feels weak. He was seen by Dr. Whalen, Pulmonology, who suspects an inflammatory pulmonary process, possibly cryptogenic organizing pneumonia. He could possibly be a hypersensitivity reaction to a viral process or a new medication. She recommends holding any recent new medications. She also recommends high dose IV steroids with Bactrim for PCP prophylaxis. If he is not getting better in 3 days, she recommends contacting Dr.David Amaya, CT surgery at [facility] [place] for a fluoroscopic lung biopsy Monday (05/27/19). Exam Narrative Exam Narrative: General: Elderly man, laying in bed with head of bed elevated, appears ill. Alert and oriented, answers questions appropriately, pleasant cooperative. Does not appear to be in respiratory distress at rest. HEENT: Normocephalic, atraumatic, pupils symmetrical and round, EOMI, mucous membranes moist. Neck: Supple, no JVD. Cardiovascular: Heart has regular rate rhythm, non-tachycardic, no murmur appreciated. Respiratory: Respirations appear even and unlabored at rest. Dry cough induced by deep breathing. Rales to bilateral bases, no wheezing. GI: Normoactive bowel sounds, abdomen soft, nontender on palpation, nondistended. Extremities: No clubbing, cyanosis or edema. Pedal pulses palpable bilaterally. Objective Objective Clinical Data: Abnormal lab results 05/23/19 05/23/19 Range/Units 06:56 06:56 RBC 3.53 L (4.50-6.00) m/cumm Hgb 11.6 L (13.5-17.5) g/dL Hct 34.1 L (40.0-50.0) % MCV 96.6 H (80-95) fL Absolute Neutrophils 9.67 H (1.2-6.7) k/cumm Absolute Lymphocytes 0.54 L (1.2-3.4) k/cumm Anion Gap 13.3 H (3-11) mmol/L BUN 34 H D (7-18) mg/dL Glucose 185 H (74-106) mg/dL Vital Signs Temperature 36.6 C 05/23/19 11:29 Temperature Source Tympanic 05/23/19 11:29 Pulse 86 05/23/19 13:15 Pulse Rhythm Regular 05/23/19 09:03 Pulse 94 H 05/17/19 14:31 Respiratory Rate 18 05/23/19 13:15 Respiratory Effort Short of Breath 05/23/19 09:03 Respiratory Depth Shallow 05/23/19 09:03 Respiratory Pattern Normal 05/23/19 09:03 Blood Pressure 126/61 05/23/19 11:29 Blood Pressure Mean 77 05/17/19 14:31 Blood Pressure Position Supine 05/17/19 10:04 Pulse Oximetry 97 05/23/19 13:29 Oxygen Delivery Method Nasal Cannula 05/23/19 13:29 Oxygen Flow Rate 5 05/23/19 13:29 Pain Level 0 05/23/19 11:29 Comment 05/20/19 20:13 Intake & Output 05/22/19 05/23/19 05/23/19 23:59 11:59 23:59 Intake Total 260 / 260 Output Total 950 / 2050 400 / 400 Balance -950 / -1277.833 -140 / -140 Weight 96.4 kg Intake: IV Oral 240 / 240 Output: Urine 950 / 2050 400 / 400 Other: Urine Color Light Sofia Light Sofia Urine Appearance Clear Clear Urine Odor Normal None Stool Size Moderate Stool Characteristics Formed Brown Voiding Methods Urinal Urinal Laboratory Results WBC 10.69 k/cumm (4.4-10.8) 05/23/19 06:56 RBC 3.53 m/cumm (4.50-6.00) L 05/23/19 06:56 Hgb 11.6 g/dL (13.5-17.5) L 05/23/19 06:56 Hct 34.1 % (40.0-50.0) L 05/23/19 06:56 MCV 96.6 fL (80-95) H 05/23/19 06:56 MCH 32.9 pg (27.0-33.0) 05/23/19 06:56 MCHC 34.0 g/dL (32.0-36.0) 05/23/19 06:56 RDW 12.4 % (11.8-14.1) 05/23/19 06:56 Plt Count 388 x1000/uL (130-400) 05/23/19 06:56 MPV 10.3 fL (8.0-11.0) 05/23/19 06:56 Immature Gran % 1.1 05/23/19 06:56 Neutrophils % 90.4 05/23/19 06:56 Band Neutrophils % 2.0 % 05/20/19 07:30 Lymphocytes % 5.1 05/23/19 06:56 Atypical Lymphs % 2 05/20/19 07:30 Monocytes % 3.3 05/23/19 06:56 Eosinophils % 0.0 05/23/19 06:56 Basophils % 0.1 05/23/19 06:56 Metamyelocytes % 2.0 % 05/20/19 07:30 Myelocytes % 2.0 % 05/20/19 07:30 Absolute Neutrophils 9.67 k/cumm (1.2-6.7) H 05/23/19 06:56 Absolute Lymphocytes 0.54 k/cumm (1.2-3.4) L 05/23/19 06:56 Absolute Monocytes 0.35 k/cumm (0.11-0.7) 05/23/19 06:56 Absolute Eosinophils 0.00 k/cumm (0.0-0.7) 05/23/19 06:56 Absolute Basophils 0.01 k/cumm (0.0-0.2) 05/23/19 06:56 Differential Comment Manual differential 05/21/19 06:20 RBC Morphology See below 05/21/19 06:20 Polychromasia Present 05/21/19 06:20 Sodium 137 mmol/L (136-145) 05/23/19 06:56 Potassium 3.7 mmol/L (3.5-5.1) 05/23/19 06:56 Chloride 101 mmol/L (98-107) 05/23/19 06:56 Carbon Dioxide 22.7 mmol/L (21.0-32.0) 05/23/19 06:56 Anion Gap 13.3 mmol/L (3-11) H 05/23/19 06:56 BUN 34 mg/dL (7-18) H D 05/23/19 06:56 Creatinine 1.30 mg/dL (0.70-1.30) 05/23/19 06:56 Estimated GFR/1.73 m2 53.39 (mL/min/1.73m2) 05/23/19 06:56 Glucose 185 mg/dL (74-106) H 05/23/19 06:56 Lactate 1.1 mmol/L (0.6-1.4) 05/17/19 12:10 Calcium 8.7 mg/dL (8.5-10.1) 05/23/19 06:56 Magnesium 2.0 mg/dL (1.8-2.4) 05/23/19 06:56 Total Bilirubin 1.3 mg/dL (0.2-1.0) H 05/17/19 12:10 AST 17 U/L (15-37) 05/17/19 12:10 ALT 17 U/L (16-63) 05/17/19 12:10 Alkaline Phosphatase 103 U/L (46-116) 05/17/19 12:10 Troponin I < 0.05 ng/Ml (<0.06) 05/22/19 16:22 C-Reactive Protein > 25.00 mg/dL (0.0-0.3) H 05/21/19 06:20 NT-Pro-B Natriuret Pep 192 pg/mL (<300) 05/22/19 16:22 Total Protein 6.8 g/dL (6.4-8.2) 05/17/19 12:10 Albumin 3.1 g/dL (3.4-5.0) L 05/17/19 12:10 Procalcitonin 0.1 ng/mL 05/19/19 06:35 Vancomycin Trough 19.5 ug/mL (10.0-20.0) 05/21/19 11:11 Adenovirus DNA Negative (Negative) 05/19/19 10:07 Human Metapneumovir RNA Negative (Negative) 05/19/19 10:07 Urine Legionella Ag Negative (Negative) 05/17/19 14:30 Parainfluenza 1 (PCR) Negative (Negative) 05/19/19 10:07 Parainfluenza 2 (PCR) Negative (Negative) 05/19/19 10:07 Parainfluenza 3 (PCR) Negative (Negative) 05/19/19 10:07 Parainfluenza 4 (PCR) Negative (Negative) 05/19/19 10:07 Resp Viral Spec Desc Not Applicable 05/19/19 10:07 Rhinovirus (PCR) Negative (Negative) 05/19/19 10:07
[2019-05-23] MEDS: Enoxaparin 40 MG/0.4 ML SYR SC (14:18)
--- NOTE | 2019-05-23 18:17 | CMPROGNOTE_ITS ---
- If Service Date Differs Date of service: 05/23/19 Time of Service: 18:17 Care Management Progress Note S/O: Gordy was sitting in his chair when CM met with him. His breathing appeared labored during the conversation and he remains on continuous oxygen. He reported that he will not be going home any time soon, and per provider, if he is not improved before Monday he will be transferred to a tertiary facility. He was seen today by Pulmonary, who suspects an inflammatory pulmonary process. CM will continue to follow. A: Gordy is a 78 year old male admitted to [facility] 05/17/19 for Sepsis due to CAP P: Discharge planning to be determined by disposition. Anticipate Gordy will return home when medically cleared vs transfer to tertiary facility if symptoms do not improve. Gordy may require new services at home upon discharge. His will drive him home via private vehicle vs ambulance transfer. CM will continue to support patient, family and staff with discharge planning considerations.
[2019-05-24] VITALS (22 sets, daily range): BP systolic 104–153; BP diastolic 55–78; PULSE 56–85; RESP 16–32; TEMP 34–37.1; O2SAT 88–99
[2019-05-24] MEDS: Normal Saline Flush 10 ML SYR IVP ×4 (03:42→22:22)
[2019-05-24] MEDS: methylPREDNISolone SUCC 125 MG VIAL 60 MG IVP ×4 (03:42→22:21)
[2019-05-24 07:06] LABS: Abs Immature Grans 0.24 k/cumm (0.0-0.09); Absolute Basophil Count 0.02 k/cumm (0.0-0.2); Basophils % 0.1; HCT 35.8 % (40.0-50.0); HGB 12.1 g/dL (13.5-17.5); Immature Grans % 1.2; Lymphocytes % 5.7; Mean Corp. HGB Concentration 33.8 g/dL (32.0-36.0); Mean Corpuscular Hemoglobin 32.5 pg (27.0-33.0); Mean Corpuscular Volume 96.2 fL (80-95); Mean Platelet Volume 10.4 fL (8.0-11.0); Monocytes % 4.3; Neutrophils % 88.7; Platelet Count 521 x1000/uL (130-400); RBC 3.72 m/cumm (4.50-6.00); RBC Distribution Width 12.5 % (11.8-14.1); White Blood Cell Count 20.75 k/cumm (4.4-10.8)
[2019-05-24 07:07] LABS: Anion Gap 12.7 mmol/L (3-11); BUN 38 mg/dL (7-18); CO2 22.3 mmol/L (21.0-32.0); CREATININE 1.25 mg/dL (0.70-1.30); Calcium 8.8 mg/dL (8.5-10.1); Chloride 103 mmol/L (98-107); Estimated GFR 55.86 (mL/min/1.73m2); Glucose 172 mg/dL (74-106); Magnesium 2.3 mg/dL (1.8-2.4); Potassium 3.8 mmol/L (3.5-5.1); Sodium 138 mmol/L (136-145)
[2019-05-24 07:16] LABS: Absolute Lymphocyte Count 1.18 k/cumm (1.2-3.4); Absolute Monocyte Count 0.89 k/cumm (0.11-0.7); Absolute Neutrophil Count 18.41 k/cumm (1.2-6.7)
[2019-05-24 07:36] LABS: RBC Morphology Normal
[2019-05-24 07:37] LABS: Diff Comment Agrees w/ Instrument
--- NOTE | 2019-05-24 08:53 | PT.INTREAT ---
Date of service: 05/24/19 Time of Service: 08:54 PT Notes Visit Reasons: SEPSIS DUE TO COMMUNITY ACQUIRED PNEUMONIA Inpatient Physical Therapy Treatment Note Carson Dumas P.T. Date: 05/24/2019 SUBJECTIVE: Scot is agreeable to participating in PT, he does state that he is feeling a little better this morning, although continues to feel faint and short of breath with activity. OBJECTIVE: Patient is observed resting in bed, receiving oxygen via HiFlo unit. Pain: Patient c/o sternal pain with SLR exercise TRANSFERS Supine to sit: I Sit to supine: I GAIT: Hold per MD due to medical status THEREX: Patient completed a LE strengthening program, in both seated and supine positions, as per flow sheet. He was issued a LE strengthening HEP, with instruction. Patient demonstrates good understanding and appropriate exercise performance at this time. ASSESSMENT: Patient tolerated session well with c/o SOB with activity, requiring rests between exercises. Patient also c/o sternal discomfort with SLR exercise. PLAN: Continue with PT's POC Treatment time: 20 minutes; [id number]
[2019-05-24] MEDS: Donepezil 5 MG TAB PO (09:30)
[2019-05-24] MEDS: Tamsulosin 0.4 MG CAPCR PO (09:31)
[2019-05-24] MEDS: Docusate Sodium 100 MG CAP PO (09:31)
[2019-05-24] MEDS: Lisinopril 5 MG TAB PO (09:31)
[2019-05-24] MEDS: Sertraline 50 MG TAB 100 MG PO (09:31)
[2019-05-24] MEDS: Potassium Chloride 20 MEQ TABCR PO (09:31)
[2019-05-24] MEDS: ARIPiprazole 2 MG TAB PO (09:31)
[2019-05-24] MEDS: Benzonatate 100 MG CAP PO ×3 (09:31→19:32)
[2019-05-24] MEDS: Allopurinol 300 MG TAB PO (09:31)
[2019-05-24] MEDS: guaiFENesin 600 MG TABCR PO ×2 (09:31→19:32)
--- NOTE | 2019-05-24 09:57 | PUCON_ITS ---
DATE OF CONSULTATION: May 23, 2019 REQUESTING PROVIDER: Jason Davison M.D. ASSESSMENT/PLAN: Severe, fairly new onset hypoxemia with patchy interstitial and alveolar infiltrate s on chest CT, as well as severe shortness of breath and dry cough. The CT appearance is most consis tent with cryptogenic organizing pneumonia, but other forms of interstitial lung disease certainly sh ould be considered. The CT is less suggestive of acute hypersensitivity pneumonitis and certainly ev en less suggestive of sarcoidosis. 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 Post-viral bronc hiolitis obliterans is certainly a consideration, although is extensive viral panel is negative. Asp iration does not seem clinically a likely etiology to trigger the CLUB LOUNGE ATTENDANT. There could be some exposure to a new medication, such as the mood stabilizer that he started in February, or an exposure to thei r new dog, which could have triggered this problem, or it could be idiopathic. At present there are really two choices: one is to send him for thoracoscopic lung biopsy and then t reat him depending on the pathology, or based on the CT and clinical presentation, given that he woul d be fairly high-risk for the surgery, start him empirically on high dose IV steroids such as Solumed rol 60 mg q6h and if he fails to start to improve both oxygenation-everett and clinically by Monday, the n consider referring him to [facility] for thoracoscopic lung biopsy. This was discussed with the pat alma delia and his , as well as with the hospitalist and we all agreed to proceed with the latter optio n. I will be happy to follow with him in [facility]. Certainly if he improves clinic ally with the high dose steroids, he will need to stay on it for fairly [facility] [facility] and therefore would also recommend starting him on Bactrim for PCP prophylaxis. I think his antibiotics, now that he's g mustapha almost a weeks' worth of IV broad-spectrum antibiotics and that there's nothing on his CT scan to suggest infection and all his cultures are negative, can be discontinued. +++++++++++++++++++++++ HISTORY: The patient is a 78-year-old man who is being seen as an inpatient for severe hypoxemia, sh ortness of breath and cough at the request of Dr. Jason Davison. The patient was admitted on 05/17/19. He has underlying history of mild cognitive impairment/dementia , for which he was started on a mood stabilizer medication in February. He also has hypertension an d GERD. He did not know about underlying lung disease. He has a history of severe obstructive sleep apnea with an AHI of 71/hour on previous overnight polysomnogram on 07/13/14, but he declined any spec [facility] therapy for that. He says that he was at his usual state of health until late summer and then by he s tarted to experience gradually worsening and progressive shortness of breath, especially on exertion. About a week ago he developed a low-grade fever up to 100.6 and a cough, mostly dry, occasionally p roductive of minimal amount of clear sputum, no hemoptysis. He has no wheezing. He was so short of breath that he could only breathe shallow and could hardly catch his breath, even walking 30 feet. Nathaniel nix came to the hospital and was admitted with severe hypoxemia. His chest x-ray showed increased inte rstitial markings bilaterally. Initially he was started on Zithromax and Doxycycline, later switched to IV Vancomycin and Levaquin and then stayed on IV Levaquin. He really does not feel that he is ge tting better a great deal. He continues to have very shallow breathing, severe shortness of breath, getting out of breath even in 10 feet of walking, even on supplemental oxygen and almost constant cou ghing. He says that he had pneumonia in 2016 and during that hospitalization on echocardiogram he was found to have mild CHF, but no specific therapy was done for that. He says that the cough is definitely new, only going on for the last week. The shortness of breath h as been progressive. He also has lower back pain and radiculopathy. He was supposed to undergo surg lio for that today. That has to be cancelled. He is currently on Solumedrol 60 mg q8h, which was just started last night. In terms of his history, especially of more recent events, he did not have an infectious prodrome or at least it doesn't appear to be, since February or so of this year. They got a new poodle in [facility], but there was no other environmental change in the house or at his work. Because of his lower back pain he can hardly get out of the car. 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 He has not had any exposure to mice or bat or bird droppings, or any other dust particles or mold. T he only new medication is the mood stabilizer that was started in February. He's on no inhalers. He quit smoking 40 years ago. He used to smoke mostly one pack a day, occasionally two packs a day fro m age 14. Overall he has a 35 pack-year smoking history. He did k[employer] jobs all of his life. The re are no other relevant history elements. REVIEW OF SYSTEMS: As above. All other review of system elements reviewed with the patient and negative. OBJECTIVE: Vitals as in EMR. He is an elderly man, coughing almost constantly throughout the appointment and very short of breath, in mild to moderate respiratory distress, even on supplemental oxygen at rest. THROAT: Clear, no congestion, exudate or thrush. NECK: Supple; no JVD or lymphadenopathy. CHEST: Bilateral air entry with remarkably clear breath sounds; no crepitations or crackles, but he has end-expiratory coughing, especially with forceful exhalation. HEART: S1, S2. ABDOMEN: Benign; bowel sounds present. EXTREMITIES: No edema, clubbing or cyanosis. NEURO: Alert and oriented x3. PSYCH: Mood compensated. SKIN: No icterus or bruises. REVIEW OF INVESTIGATIONS: 1. Overnight polysomnogram 07/13/14 shows an AHI of 71/hour with saturation francheska at 79% on room air wi th 42 minutes spent below the saturation of 88%. 2. Myocardial perfusion scan 12/02/15 shows no myocardial perfusion defect. EF 59%. 3. Echocardiogram 03/24/17 shows moderate LVH, EF 60-65%, no wall motion abnormalities. 4. Chest x-ray 05/17/19 shows bilateral increased interstitial markings. 5. Chest x-ray 05/19/19 continues to show the same interstitial markings with minimal bilateral pleura l effusions. 6. Chest x-ray 05/22/19 shows basically stable appearance of the hazy opacification of the right uppe r lobe and in a patchy fashion in the left lung. 7. CT scan of the chest reviewed by me, which shows patchy interstitial infiltrates bilaterally with some alveolar infiltrates, as well as a small left-sided pleural effusion. The most prominent alveol ar infiltrate is seen in the left lung base. 8. Echocardiogram 05/20/19 shows mild concentric LVH; normal diastolic function; EF 55-60%. No signif icant valvular disease except a trivial to mild mitral regurgitation. No significant change from . No pulmonary hypertension. 9. LABS show a respiratory viral PCR panel negative for parainfluenza 1 to 4; adenovirus, [place] Pneumo virus and rhinovirus. Rapid flu is negative. Blood cultures no growth. WBC 10 on 05/23/19 with a h emoglobin of 11 and a platelet count of 388,000. Kidney function fairly normal, creatinine 1.3. Leg ionella urine is negative. Urine Strep antigen is pending. Procalcitonin normal and lactic acid 1.1 ; Troponin < 0.05 and NT-BNP reportedly normal.
[2019-05-24] MEDS: Enoxaparin 40 MG/0.4 ML SYR SC (14:58)
[2019-05-24] MEDS: Sulfameth/Trimeth DS TAB 1 TAB PO (14:58)
--- NOTE | 2019-05-24 16:18 | CMPROGNOTE_ITS ---
- If Service Date Differs Date of service: 05/24/19 Time of Service: 16:18 Care Management Progress Note S/O: Gordy was sleeping when CM attempted to meet with him several times today. Pulmonology was consulted, and it was determined that he would be started on high dose IV steroids and if he does not improve by Monday he will be transferred to a tertiary facility for a thoracoscopic lung biopsy. He continues to require oxygen. CM will continue to follow. A: Gordy is a 78 year old male admitted to [facility] 05/17/19 for Sepsis due to CAP P: Discharge planning to be determined by disposition. Anticipate Gordy will return home when medically cleared vs transfer to tertiary facility if symptoms do not improve. Gordy may require new services at home upon discharge. His will drive him home via private vehicle vs ambulance transfer. CM will continue to support patient, family and staff with discharge planning considerations.
--- NOTE | 2019-05-24 16:27 | PGE_ITS ---
Date of Service Date of service: 05/24/19 Time of Service: 16:28 Assessment and Plan Assessment and plan (1) Inflammatory disorder of respiratory tract: Status: Acute Assessment and plan: He continues to have significant shortness of breath with activity. Deep breathing induces a dry cough. He is on high flow. This does to be a bacterial process. His procalcitonin was low on admission. His CRP is greater than 25, consistent with an inflammatory process. Repeat imaging has not shown improvement. His white blood cell count normalized but is now high in the setting of steroids. Today is day #2 of IV steroids. A pulmonology consult was placed. He was seen by Dr. Whalen, Pulmonology, on 05/23/19, who suspects an inflammatory pulmonary process, possibly cryptogenic organizing pneumonia. This could possibly be a hypersensitivity reaction to a viral process, an environmental exposure or a new medication vs idiopathic. She recommends holding any recent new medications (discussed with his pharmacy, he is not on any new medications, he received a small Rx for diazepam in 03/2019 but he is no longer taking it). She also recommends high dose IV steroids with Bactrim for PCP prophylaxis. If he is not getting better by 05/26/19 or if his condition worsens and he requires bipap, she recommends contacting Dr.David Amaya, CT surgery at [facility] for a fluoroscopic lung biopsy Monday (05/27/19). (2) Pulmonary edema: Status: Acute Assessment and plan: Does not appear to be in acute congestive heart failure. He was on a Lasix drip, he put out a significant amount of urine. His BNP was normal. Hold off on giving him further Lasix for now. Recommendations per pulmonology. (3) CAP (community acquired pneumonia): Status: Acute Assessment and plan: As above. This is likely not a bacterial infection. Levaquin was discontinued on day #6. 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 (4) Dementia: Status: Chronic Assessment and plan: Currently undergoing evaluation for dementia. Alert and oriented and answering questions appropriately today. He is on Abilify and Aricept, continue current regimen. (5) Lumbosacral radiculopathy: Status: Acute Assessment and plan: He was scheduled for lumbosacral surgery on 05/23, continue physical therapy. He will need to reschedule his surgery when he has recovered from this acute illness. (6) GERD (gastroesophageal reflux disease): Status: Inactive Assessment and plan: Stable. Continue Zantac. (7) Depression: Status: Chronic Assessment and plan: Stable. Continue Zoloft. (8) Hypertension: Status: None Assessment and plan: Blood pressure has been low normal in the setting of acute illness. HCTZ is on hold. Continue to monitor blood pressure. (9) YASMINE (acute kidney injury): Status: Acute Assessment and plan: Creatinine within normal limits. Continue to monitor renal function. (10) DVT prophylaxis: Status: Acute Assessment and plan: Subcutaneous Lovenox. (11) Discharge planning issues: Status: Acute Assessment and plan: He is a full code. Discussed code status, he would like to remain full code. This case was discussed with Dr. Davison who is in agreement. Subjective Subjective Interval history since last seen: Mr Putnam reports mild improvement in his breathing today. He continues to have shortness of breath with any activity. He continues to have a dry cough when he tries to take a deep breath. He is not short of breath at rest. He remains on high flow. He did not get lightheaded going to the bathroom today. He denies chest pain/pressure, palpitations. He is eating and drinking. No nausea, vomiting, or diarrhea. He has been thinking about possible exposures. He reported today that his pots plants in their house today. He questions whether the soil could have contributed to his lung inflammation. He also has a new dog. Exam Narrative Exam Narrative: General: Elderly man, laying in bed with head of bed elevated, appears ill but nontoxic. Alert and oriented, answers questions appropriately, pleasant cooperative. Does not appear to be in respiratory distress at rest. HEENT: Normocephalic, atraumatic, pupils symmetrical and round, EOMI, mucous membranes moist. Neck: Supple, no JVD. Cardiovascular: Heart has regular rate rhythm, non-tachycardic, no murmur appreciated. Respiratory: Respirations appear even and unlabored at rest. Dry cough induced by deep breathing. Rales to bilateral bases, no wheezing. GI: Normoactive bowel sounds, abdomen soft, nontender on palpation, nondistended. Extremities: No clubbing, cyanosis or edema. Pedal pulses palpable bilaterally. Objective Objective Clinical Data: Abnormal lab results 05/24/19 05/24/19 Range/Units 06:45 06:45 WBC 20.75 H D (4.4-10.8) k/cumm RBC 3.72 L (4.50-6.00) m/cumm Hgb 12.1 L (13.5-17.5) g/dL Hct 35.8 L (40.0-50.0) % MCV 96.2 H (80-95) fL Plt Count 521 H (130-400) x1000/uL Absolute Neutrophils 18.41 H (1.2-6.7) k/cumm Absolute Lymphocytes 1.18 L (1.2-3.4) k/cumm Absolute Monocytes 0.89 H (0.11-0.7) k/cumm Anion Gap 12.7 H (3-11) mmol/L BUN 38 H (7-18) mg/dL Glucose 172 H (74-106) mg/dL Vital Signs Temperature 36.9 C 05/24/19 15:52 Temperature Source Tympanic 05/24/19 15:52 Pulse 85 05/24/19 15:52 Pulse Rhythm Regular 05/24/19 15:17 Pulse 94 H 05/17/19 14:31 Respiratory Rate 20 05/24/19 15:52 Respiratory Effort Short of Breath 05/24/19 15:17 Respiratory Depth Shallow 05/24/19 15:17 Respiratory Pattern Tachypnea 05/24/19 15:17 Blood Pressure 153/68 H 05/24/19 15:52 Blood Pressure Mean 77 05/17/19 14:31 Blood Pressure Position Supine 05/17/19 10:04 Pulse Oximetry 90 L 05/24/19 15:52 Oxygen Delivery Method Hi Flow System 05/24/19 15:52 Oxygen Flow Rate 40 05/24/19 15:55 Fraction of Inspired Oxygen (FIO2) 51 05/24/19 15:55 Pain Level 5 05/24/19 15:52 Comment 05/23/19 16:35 Intake & Output 05/23/19 05/24/19 05/24/19 23:59 11:59 23:59 Intake Total 360 / 620 250 / 490 240 / 490 Output Total 250 / 650 325 / 325 Balance 110 / -30 250 / 165 -85 / 165 Weight 95.3 kg Intake: IV Oral 360 / 600 240 / 480 240 / 480 Output: Urine 250 / 650 325 / 325 Other: Urine Color Straw Straw Urine Appearance Clear Clear Voiding Methods Urinal Laboratory Results WBC 20.75 k/cumm (4.4-10.8) H D 05/24/19 06:45 RBC 3.72 m/cumm (4.50-6.00) L 05/24/19 06:45 Hgb 12.1 g/dL (13.5-17.5) L 05/24/19 06:45 Hct 35.8 % (40.0-50.0) L 05/24/19 06:45 MCV 96.2 fL (80-95) H 05/24/19 06:45 MCH 32.5 pg (27.0-33.0) 05/24/19 06:45 MCHC 33.8 g/dL (32.0-36.0) 05/24/19 06:45 RDW 12.5 % (11.8-14.1) 05/24/19 06:45 Plt Count 521 x1000/uL (130-400) H 05/24/19 06:45 MPV 10.4 fL (8.0-11.0) 05/24/19 06:45 Immature Gran % 1.2 05/24/19 06:45 Neutrophils % 88.7 05/24/19 06:45 Band Neutrophils % 2.0 % 05/20/19 07:30 Lymphocytes % 5.7 05/24/19 06:45 Atypical Lymphs % 2 05/20/19 07:30 Monocytes % 4.3 05/24/19 06:45 Eosinophils % 0.0 05/24/19 06:45 Basophils % 0.1 05/24/19 06:45 Metamyelocytes % 2.0 % 05/20/19 07:30 Myelocytes % 2.0 % 05/20/19 07:30 Absolute Neutrophils 18.41 k/cumm (1.2-6.7) H 05/24/19 06:45 Absolute Lymphocytes 1.18 k/cumm (1.2-3.4) L 05/24/19 06:45 Absolute Monocytes 0.89 k/cumm (0.11-0.7) H 05/24/19 06:45 Absolute Eosinophils 0.00 k/cumm (0.0-0.7) 05/24/19 06:45 Absolute Basophils 0.02 k/cumm (0.0-0.2) 05/24/19 06:45 Differential Comment Agrees w/ instrument 05/24/19 06:45 RBC Morphology Normal 05/24/19 06:45 Polychromasia Present 05/21/19 06:20 Sodium 138 mmol/L (136-145) 05/24/19 06:45 Potassium 3.8 mmol/L (3.5-5.1) 05/24/19 06:45 Chloride 103 mmol/L (98-107) 05/24/19 06:45 Carbon Dioxide 22.3 mmol/L (21.0-32.0) 05/24/19 06:45 Anion Gap 12.7 mmol/L (3-11) H 05/24/19 06:45 BUN 38 mg/dL (7-18) H 05/24/19 06:45 Creatinine 1.25 mg/dL (0.70-1.30) 05/24/19 06:45 Estimated GFR/1.73 m2 55.86 (mL/min/1.73m2) 05/24/19 06:45 Glucose 172 mg/dL (74-106) H 05/24/19 06:45 Lactate 1.1 mmol/L (0.6-1.4) 05/17/19 12:10 Calcium 8.8 mg/dL (8.5-10.1) 05/24/19 06:45 Magnesium 2.3 mg/dL (1.8-2.4) 05/24/19 06:45 Total Bilirubin 1.3 mg/dL (0.2-1.0) H 05/17/19 12:10 AST 17 U/L (15-37) 05/17/19 12:10 ALT 17 U/L (16-63) 05/17/19 12:10 Alkaline Phosphatase 103 U/L (46-116) 05/17/19 12:10 Troponin I < 0.05 ng/Ml (<0.06) 05/22/19 16:22 C-Reactive Protein > 25.00 mg/dL (0.0-0.3) H 05/21/19 06:20 NT-Pro-B Natriuret Pep 192 pg/mL (<300) 05/22/19 16:22 Total Protein 6.8 g/dL (6.4-8.2) 05/17/19 12:10 Albumin 3.1 g/dL (3.4-5.0) L 05/17/19 12:10 Procalcitonin 0.1 ng/mL 05/19/19 06:35 Vancomycin Trough 19.5 ug/mL (10.0-20.0) 05/21/19 11:11 Adenovirus DNA Negative (Negative) 05/19/19 10:07 Human Metapneumovir RNA Negative (Negative) 05/19/19 10:07 Urine Legionella Ag Negative (Negative) 05/17/19 14:30 M. pneumoniae Source Cancelled 05/22/19 00:05 M. pneumoniae (PCR) Cancelled 05/22/19 00:05 Parainfluenza 1 (PCR) Negative (Negative) 05/19/19 10:07 Parainfluenza 2 (PCR) Negative (Negative) 05/19/19 10:07 Parainfluenza 3 (PCR) Negative (Negative) 05/19/19 10:07 Parainfluenza 4 (PCR) Negative (Negative) 05/19/19 10:07 Resp Viral Spec Desc Not Applicable 05/19/19 10:07 Rhinovirus (PCR) Negative (Negative) 05/19/19 10:07
[2019-05-24] MEDS: Ibuprofen 400 MG TAB PO (16:49)
[2019-05-25] VITALS (15 sets, daily range): BP systolic 115–148; BP diastolic 58–64; PULSE 63–71; RESP 18–22; TEMP 34–37.1; O2SAT 92–98
[2019-05-25] MEDS: methylPREDNISolone SUCC 125 MG VIAL 60 MG IVP (04:35)
[2019-05-25] MEDS: Normal Saline Flush 10 ML SYR IVP ×5 (04:35→23:33)
[2019-05-25] MEDS: Allopurinol 300 MG TAB PO (09:35)
[2019-05-25] MEDS: methylPREDNISolone SUCC 125 MG VIAL 80 MG IVP (09:35)
[2019-05-25] MEDS: Potassium Chloride 20 MEQ TABCR PO (09:36)
[2019-05-25] MEDS: Docusate Sodium 100 MG CAP PO (09:36)
[2019-05-25] MEDS: Sertraline 50 MG TAB 100 MG PO (09:36)
[2019-05-25] MEDS: Tamsulosin 0.4 MG CAPCR PO (09:36)
[2019-05-25] MEDS: Lisinopril 5 MG TAB PO (09:36)
[2019-05-25] MEDS: Donepezil 5 MG TAB PO (09:36)
[2019-05-25] MEDS: ARIPiprazole 2 MG TAB PO (09:36)
[2019-05-25] MEDS: guaiFENesin 600 MG TABCR PO ×2 (09:37→20:07)
[2019-05-25] MEDS: Benzonatate 100 MG CAP PO ×3 (09:37→20:07)
--- NOTE | 2019-05-25 10:12 | W.PM.PROGNOT ---
Date of Service Date of service: 05/25/19 Time of Service: 10:12 Assessment and Plan Assessment and plan (1) Inflammatory disorder of respiratory tract: Start date: 05/25/19 Start time: 10:33 Status: Acute Assessment and plan: He continues to have significant shortness of breath with activity. Deep breathing induces a dry cough. He is on high flow. Does not appear to be bacterial, though his fevers deverfesced with broad spectrum antibiotics, Afebrile since 02/20. His CRP is greater than 25, consistent with an inflammatory process. Repeat imaging has not shown improvement. His white blood cell count normalized but is now high in the setting of steroids. Today is day #3 of IV steroids and patient is requiring greater oxygen on hi mak. Will increase steroids to 80 q 6 hours. Stat ABG, and plan to call Dr.David Amaya, CT surgery at [facility] for a fluoroscopic lung biopsy Monday (05/27/19). He was seen by Dr. Whalen, Pulmonology, on 05/23/19, who suspects an inflammatory pulmonary process, possibly cryptogenic organizing pneumonia. This could possibly be a hypersensitivity reaction to a viral process, an environmental exposure or a new medication vs idiopathic. She also recommends high dose IV steroids with Bactrim for PCP prophylaxis. (2) Pulmonary edema: Start date: 05/25/19 Start time: 10:40 Status: Acute Assessment and plan: Resolved. (3) CAP (community acquired pneumonia): Start date: 05/25/19 Start time: 10:40 Status: Acute Assessment and plan: As above. This is likely not a bacterial infection. Levaquin was discontinued on day #6. 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 (4) Dementia: Start date: 05/25/19 Start time: 10:40 Status: Chronic Assessment and plan: Currently undergoing evaluation for dementia. Alert and oriented and answering questions appropriately today. He is on Abilify and Aricept, continue current regimen. (5) Lumbosacral radiculopathy: Start date: 05/25/19 Start time: 10:41 Status: Acute Assessment and plan: He was scheduled for lumbosacral surgery on 05/23, continue physical therapy. He will need to reschedule his surgery when he has recovered from this acute illness. (6) GERD (gastroesophageal reflux disease): Start date: 05/25/19 Start time: 10:41 Status: Inactive Assessment and plan: Stable. Continue Zantac. (7) Depression: Start date: 05/25/19 Start time: 10:41 Status: Chronic Assessment and plan: Stable. Continue Zoloft. (8) Hypertension: Start date: 05/25/19 Start time: 10:41 Status: None Assessment and plan: Blood pressure has been low normal in the setting of acute illness. HCTZ is on hold. Continue to monitor blood pressure. (9) YASMINE (acute kidney injury): Start date: 05/25/19 Start time: 10:41 Status: Acute Assessment and plan: Creatinine within normal limits. Continue to monitor renal function. (10) DVT prophylaxis: Start date: 05/25/19 Start time: 10:41 Status: Acute Assessment and plan: Subcutaneous Lovenox. (11) Discharge planning issues: Start date: 05/25/19 Start time: 10:41 Status: Acute Assessment and plan: He is a full code. Discussed code status, he would like to remain full code. This case was discussed with Dr. Patrick who is in agreement. Subjective Subjective Patient reports: shortness of breath Interval history since last seen: Mr. Putnam, states he slept better last night though, SOB continues and his oxygen requirements are greater today, with lower saturation overnight. He also c/o having worsening SOB with sitting up in bed. IV steroids increased to 80 q 6 hours. Will call [facility] tomorrow and speak with Dr. Amaya about transferring patient for CT fluroscopy per pulmonary recommendation. He denies CP, N/V. Exam Narrative Exam Narrative: General: Elderly man, laying in bed on hi mak cannula, appears ill but nontoxic. Alert and oriented, answers questions appropriately, pleasant cooperative. Does not appear to be in respiratory distress at rest. HEENT: Normocephalic, atraumatic, pupils symmetrical and round, EOMI, mucous membranes moist. Neck: Supple, no JVD. Cardiovascular: Heart has regular rate rhythm, non-tachycardic, no murmur appreciated. Respiratory: Respirations appear even and unlabored at rest. Dry cough induced by deep breathing. Diminished, but clear. GI: Normoactive bowel sounds, abdomen soft, nontender on palpation, nondistended. Extremities: No clubbing, cyanosis or edema. Pedal pulses palpable bilaterally. Objective Objective Clinical Data: Vital Signs Temperature 37.1 C 05/25/19 08:01 Temperature Source Tympanic 05/25/19 08:01 Pulse 71 05/25/19 08:01 Pulse Rhythm Regular 05/25/19 07:51 Pulse 94 H 05/17/19 14:31 Respiratory Rate 22 05/25/19 08:01 Respiratory Effort 05/25/19 07:51 Respiratory Depth Deep 05/25/19 07:51 Respiratory Pattern Normal 05/25/19 07:51 Blood Pressure 118/58 L 05/25/19 08:01 Blood Pressure Mean 77 05/17/19 14:31 Blood Pressure Position Supine 05/17/19 10:04 Pulse Oximetry 92 L 05/25/19 08:01 Oxygen Delivery Method Hi Flow Nasal Cannula 05/25/19 08:01 Oxygen Flow Rate 40 05/25/19 07:49 Fraction of Inspired Oxygen (FIO2) 60 05/25/19 08:01 Pain Level 0 05/25/19 08:01 Comment 05/23/19 16:35 Intake & Output 05/24/19 05/24/19 05/25/19 11:59 23:59 11:59 Intake Total 250 / 490 240 / 490 225 / 225 Output Total 525 / 525 200 / 200 Balance 250 / -35 -285 / -35 25 / 25 Weight 95.3 kg 96.8 kg Intake: IV 10 Oral 240 / 480 240 / 480 225 / 225 Output: Urine 525 / 525 200 / 200 Other: Urine Color Light Sofia Yellow Urine Appearance Clear Clear Clear Urine Odor Normal Stool Size Small Moderate Stool Characteristics Soft Liquid Formed Brown Voiding Methods Urinal Urinal Laboratory Results WBC 20.75 k/cumm (4.4-10.8) H D 05/24/19 06:45 RBC 3.72 m/cumm (4.50-6.00) L 05/24/19 06:45 Hgb 12.1 g/dL (13.5-17.5) L 05/24/19 06:45 Hct 35.8 % (40.0-50.0) L 05/24/19 06:45 MCV 96.2 fL (80-95) H 05/24/19 06:45 MCH 32.5 pg (27.0-33.0) 05/24/19 06:45 MCHC 33.8 g/dL (32.0-36.0) 05/24/19 06:45 RDW 12.5 % (11.8-14.1) 05/24/19 06:45 Plt Count 521 x1000/uL (130-400) H 05/24/19 06:45 MPV 10.4 fL (8.0-11.0) 05/24/19 06:45 Immature Gran % 1.2 05/24/19 06:45 Neutrophils % 88.7 05/24/19 06:45 Band Neutrophils % 2.0 % 05/20/19 07:30 Lymphocytes % 5.7 05/24/19 06:45 Atypical Lymphs % 2 05/20/19 07:30 Monocytes % 4.3 05/24/19 06:45 Eosinophils % 0.0 05/24/19 06:45 Basophils % 0.1 05/24/19 06:45 Metamyelocytes % 2.0 % 05/20/19 07:30 Myelocytes % 2.0 % 05/20/19 07:30 Absolute Neutrophils 18.41 k/cumm (1.2-6.7) H 05/24/19 06:45 Absolute Lymphocytes 1.18 k/cumm (1.2-3.4) L 05/24/19 06:45 Absolute Monocytes 0.89 k/cumm (0.11-0.7) H 05/24/19 06:45 Absolute Eosinophils 0.00 k/cumm (0.0-0.7) 05/24/19 06:45 Absolute Basophils 0.02 k/cumm (0.0-0.2) 05/24/19 06:45 Differential Comment Agrees w/ instrument 05/24/19 06:45 RBC Morphology Normal 05/24/19 06:45 Polychromasia Present 05/21/19 06:20 Sodium 138 mmol/L (136-145) 05/24/19 06:45 Potassium 3.8 mmol/L (3.5-5.1) 05/24/19 06:45 Chloride 103 mmol/L (98-107) 05/24/19 06:45 Carbon Dioxide 22.3 mmol/L (21.0-32.0) 05/24/19 06:45 Anion Gap 12.7 mmol/L (3-11) H 05/24/19 06:45 BUN 38 mg/dL (7-18) H 05/24/19 06:45 Creatinine 1.25 mg/dL (0.70-1.30) 05/24/19 06:45 Estimated GFR/1.73 m2 55.86 (mL/min/1.73m2) 05/24/19 06:45 Glucose 172 mg/dL (74-106) H 05/24/19 06:45 Lactate 1.1 mmol/L (0.6-1.4) 05/17/19 12:10 Calcium 8.8 mg/dL (8.5-10.1) 05/24/19 06:45 Magnesium 2.3 mg/dL (1.8-2.4) 05/24/19 06:45 Total Bilirubin 1.3 mg/dL (0.2-1.0) H 05/17/19 12:10 AST 17 U/L (15-37) 05/17/19 12:10 ALT 17 U/L (16-63) 05/17/19 12:10 Alkaline Phosphatase 103 U/L (46-116) 05/17/19 12:10 Troponin I < 0.05 ng/Ml (<0.06) 05/22/19 16:22 C-Reactive Protein > 25.00 mg/dL (0.0-0.3) H 05/21/19 06:20 NT-Pro-B Natriuret Pep 192 pg/mL (<300) 05/22/19 16:22 Total Protein 6.8 g/dL (6.4-8.2) 05/17/19 12:10 Albumin 3.1 g/dL (3.4-5.0) L 05/17/19 12:10 Procalcitonin 0.1 ng/mL 05/19/19 06:35 Vancomycin Trough 19.5 ug/mL (10.0-20.0) 05/21/19 11:11 Adenovirus DNA Negative (Negative) 05/19/19 10:07 Human Metapneumovir RNA Negative (Negative) 05/19/19 10:07 Urine Legionella Ag Negative (Negative) 05/17/19 14:30 M. pneumoniae Source Cancelled 05/22/19 00:05 M. pneumoniae (PCR) Cancelled 05/22/19 00:05 Parainfluenza 1 (PCR) Negative (Negative) 05/19/19 10:07 Parainfluenza 2 (PCR) Negative (Negative) 05/19/19 10:07 Parainfluenza 3 (PCR) Negative (Negative) 05/19/19 10:07 Parainfluenza 4 (PCR) Negative (Negative) 05/19/19 10:07 Resp Viral Spec Desc Not Applicable 05/19/19 10:07 Rhinovirus (PCR) Negative (Negative) 05/19/19 10:07
[2019-05-25 10:31] LABS: Abs Immature Grans 0.26 k/cumm (0.0-0.09); Absolute Monocyte Count 0.79 k/cumm (0.11-0.7); Basophils % 0.1; HCT 35.8 % (40.0-50.0); Immature Grans % 1.4; Lymphocytes % 5.6; Mean Corp. HGB Concentration 33.5 g/dL (32.0-36.0); Mean Corpuscular Hemoglobin 32.7 pg (27.0-33.0); Mean Corpuscular Volume 97.5 fL (80-95); Mean Platelet Volume 10.5 fL (8.0-11.0); Monocytes % 4.3; Neutrophils % 88.6; Platelet Count 490 x1000/uL (130-400); RBC 3.67 m/cumm (4.50-6.00); RBC Distribution Width 12.8 % (11.8-14.1); White Blood Cell Count 18.34 k/cumm (4.4-10.8)
[2019-05-25 10:32] LABS: Absolute Basophil Count 0.02 k/cumm (0.0-0.2); Absolute Lymphocyte Count 1.03 k/cumm (1.2-3.4); Absolute Neutrophil Count 16.25 k/cumm (1.2-6.7)
[2019-05-25 10:40] LABS: BUN 37 mg/dL (7-18); C-Reactive Protein 5.22 mg/dL (0.0-0.3); CREATININE 1.21 mg/dL (0.70-1.30); Calcium 8.5 mg/dL (8.5-10.1); Chloride 104 mmol/L (98-107); Glucose 210 mg/dL (74-106); Magnesium 2.3 mg/dL (1.8-2.4); Potassium 4.1 mmol/L (3.5-5.1); Sodium 139 mmol/L (136-145)
[2019-05-25 11:04] LABS: BE -1.9 mmol/L (-3-3); HCO3 23 mmol/L (22-28); pCO2 36 mmHg (34-47); pH 7.41 (7.35-7.45); pO2 72 mmHg (83-108); sO2 95 % (94-98); tCO2 21 mmol/L (22-29)
[2019-05-25 11:08] LABS: FIO2 60 %; Site Right Radial
[2019-05-25] MEDS: Hydrocortisone SOD SUC. 100 MG VIAL IVP ×4 (11:56→23:33)
[2019-05-25] MEDS: Enoxaparin 40 MG/0.4 ML SYR SC (13:54)
--- NOTE | 2019-05-25 14:14 | CMPROGNOTE_ITS ---
Care Management Progress Note S/O: Gordy remains on high-mak oxygen and high dose IV steroids and continues to require increased oxygen. Anticipate he may be transferred to a tertiary facility for a thoracoscopic lung biopsy. CM requested Palliative Care Consult: Dr. Nina reports availability Monday, CM will coordinate if Gordy remains inpatient at [facility]. CM will continue to follow. A: Gordy is a 78 year old male admitted to [facility] 05/17/19 for Sepsis due to CAP P: Discharge plan remains undetermined at this time. Palliative Consult tentat hannah availability Monday if Gordy remains at [facility]. Transfer coordination remains possible, per provider. CM continues to follow.
--- NOTE | 2019-05-25 14:14 | PDOC.CMPRO ---
Care Management Progress Note S/O: Gordy remains on high-mak oxygen and high dose IV steroids and continues to require increased oxygen. Anticipate he may be transferred to a tertiary facility for a thoracoscopic lung biopsy. CM requested Palliative Care Consult: Dr. Nina reports availability Monday, CM will coordinate if Gordy remains inpatient at [facility]. CM will continue to follow. A: Gordy is a 78 year old male admitted to [facility] 05/17/19 for Sepsis due to CAP P: Discharge plan remains undetermined at this time. Palliative Consult tentative availability Monday if Gordy remains at [facility]. Transfer coordination remains possible, per provider. CM continues to follow.
[2019-05-26] VITALS (16 sets, daily range): BP systolic 107–145; BP diastolic 57–71; PULSE 62–98; RESP 1–32; TEMP 34–37; O2SAT 86–98
[2019-05-26] MEDS: Hydrocortisone SOD SUC. 100 MG VIAL IVP ×3 (04:12→11:34)
[2019-05-26] MEDS: Normal Saline Flush 10 ML SYR IVP ×3 (04:12→12:23)
[2019-05-26 08:11] LABS: Abs Immature Grans 0.45 k/cumm (0.0-0.09); Absolute Basophil Count 0.03 k/cumm (0.0-0.2); Absolute Lymphocyte Count 1.15 k/cumm (1.2-3.4); Absolute Monocyte Count 1.34 k/cumm (0.11-0.7); Absolute Neutrophil Count 12.83 k/cumm (1.2-6.7); Basophils % 0.2; HCT 34.4 % (40.0-50.0); HGB 11.5 g/dL (13.5-17.5); Immature Grans % 2.8; Lymphocytes % 7.3; Mean Corp. HGB Concentration 33.4 g/dL (32.0-36.0); Mean Corpuscular Hemoglobin 32.6 pg (27.0-33.0); Mean Corpuscular Volume 97.5 fL (80-95); Monocytes % 8.5; Neutrophils % 81.2; Platelet Count 457 x1000/uL (130-400); RBC 3.53 m/cumm (4.50-6.00); RBC Distribution Width 12.6 % (11.8-14.1)
[2019-05-26 08:20] LABS: BUN 34 mg/dL (7-18); CREATININE 1.03 mg/dL (0.70-1.30); Calcium 8.3 mg/dL (8.5-10.1); Chloride 107 mmol/L (98-107); Glucose 164 mg/dL (74-106); Magnesium 2.4 mg/dL (1.8-2.4); Potassium 4.1 mmol/L (3.5-5.1); Sodium 140 mmol/L (136-145)
[2019-05-26] MEDS: Donepezil 5 MG TAB PO (08:28)
[2019-05-26] MEDS: Benzonatate 100 MG CAP PO (08:28)
[2019-05-26] MEDS: Tamsulosin 0.4 MG CAPCR PO (08:28)
[2019-05-26] MEDS: Potassium Chloride 20 MEQ TABCR PO (08:29)
[2019-05-26] MEDS: Docusate Sodium 100 MG CAP PO (08:29)
[2019-05-26] MEDS: guaiFENesin 600 MG TABCR PO (08:29)
[2019-05-26] MEDS: Allopurinol 300 MG TAB PO (08:29)
[2019-05-26] MEDS: ARIPiprazole 2 MG TAB PO (08:29)
[2019-05-26] MEDS: Sertraline 50 MG TAB 100 MG PO (08:29)
[2019-05-26] MEDS: Lisinopril 5 MG TAB PO (08:29)
[2019-05-26] MEDS: Albuterol/Ipratropium 3 ML UPD VIAL UPD (10:51)
--- NOTE | 2019-05-26 11:30 | DI.RAD_ITS ---
EXAM: XR PORTABLE CHEST AP INDICATION: Chest pain. COMPARISON: XR CHEST 2V PA LATERAL from 05/17/2019 XR CHEST 2V PA LATERAL from 05/19/2019 XR CHEST 2V PA LATERAL from 05/22/2019 TECHNIQUE: 2D digital imaging was performed. FINDINGS: There are again low lung volumes. The heart may be mildly enlarged versus magnification due to proje ction. There are chronic interstitial changes. There has been no change in the superimposed bilater al infiltrates. IMPRESSION: Stable bilateral infiltrates superimposed on chronic interstitial changes
--- NOTE | 2019-05-26 11:33 | DI.VRAD_ITS ---
PROCEDURE INFORMATION: Exam: XR Chest, 1 View Exam date and time: 05/26/2019 10:55 AM Age: 78 years old Clinical history: Other: Chest pain TECHNIQUE: Imaging protocol: XR of the chest Views: 1 view. COMPARISON: CR XR CHEST 2V PA LATERAL 05/22/2019 4:36 PM FINDINGS: Lungs: Opacities in the right upper lobe and left mid lung and left base may represent atelectasis or pneumonia. Pleural space: There may be minimal left pleural effusion Heart/Mediastinum: Cardiomegaly and mild vascular prominence may represent interstitial edema. Bones/joints: Plate and screws in the cervical spine Degenerative changes in the glenohumeral joints Other findings: Overlying EKG wires IMPRESSION: 1. Opacities in the right upper lobe and left mid lung and left base may represent atelectasis or pneumonia. 2. Cardiomegaly and mild vascular prominence may represent interstitial edema. Dictated and Authenticated by: Jose Odonnell MD. Ordering:ALLAN Rader MD
[2019-05-26 12:01] LABS: Troponin I < 0.05 ng/Ml (<0.06)
--- NOTE | 2019-05-26 12:07 | W.PM.DS.N ---
Date of service: 05/26/19 Time of Service: 12:08 DS: Diagnosis Discharge Diagnosis (1) Inflammatory disorder of respiratory tract: Start date: 05/26/19 Start time: 12:08 Status: Acute Asessment and Plan: Despite solu-cortef q 4 hours, patient oxygen demands increasing. Hi-mak this am was 55% at 88 o2 with neb treatment. Patient c/o CP, EKG NSR at 71. Placed patient on bipap. Appears to be doing better. Due to increase demands it is felt patient would [facility] He has been accepted at [facility] by Dr. Packer. (2) Pulmonary edema: Status: Acute (3) CAP (community acquired pneumonia): Status: Acute (4) Dementia: Status: Chronic (5) Lumbosacral radiculopathy: Status: Acute (6) GERD (gastroesophageal reflux disease): Status: Inactive (7) Depression: Status: Chronic (8) Hypertension: Status: None (9) YASMINE (acute kidney injury): Status: Acute (10) DVT prophylaxis: Status: Acute (11) Discharge planning issues: Status: Acute Discharge Plan Disposition Patient Disposition: [facility] Condition: Serious Discharge Details Chief Complaint: RespSymp Clinical Impression: Pneumonia Reason For Visit: SEPSIS DUE TO COMMUNITY ACQUIRED PNEUMONIA Admit Date/Time: 05/17/19 13:43 Admit Provider: Adri Hernandez Attending Provider: Adri Hernandez Primary Care Provider: Prem Nolan ED Provider: [facility] Hospital Course Hospital Course: Mr. Putnam is a 78 y.o male with PMH Dementia (though not showing signs this admission), Diastolic CHF, Gerd, Depression, HTN, lumbosacral radiculopathy, penile prosthesis, admitted to [facility] m/s for what was thought initially to be CAP. SOB was on going for a couple of months prior to admission with worsening SOB days before presentation to ED. Patient was febrile with leukocytosis, dry cough, chills, oxygen requirement of 2 L on admission 05/17/2019 with Tmax 38.7, initial imaging on 05/17 with mild prominent intersitial markings with an acute pneumonia, or edema cannot be excluded. Lactate was 1.1 and procalcitonin was 0.1. He was started on doxycycline with azithromycin. After 48 hours patient continued to be febrile tmax 38.7. He was switched to levaquin and thought to have CHF with pneumonia due to increasing oxygen needs and rales in lower bases. He was then requiring 5 L. CTA was done on 05/19/19 to r/o PE which revealed decompensated pulmonary edema. Lasix drip started with appropriate diuresis, despite diuresis patient continued to have worsening oxygenation with fevers. Vancomycin was added to patient regimen on 05/19/2019 with levaquin. Blood cultures with no growth, unable to obtain sputum with a dry cough. He was also found to be in YASMINE, which resolved. He also presented with HTN on admission from 140's to 180's systolic, he was started on lisinopril 5 mg. Echo results from 05/20/19, Mild concentric left ventricular hypertrophy. The left ventricular diastolic function is normal. Left ventricular systolic function is normal. Unable to evaluate entirely for wall motion abnormalities without contrast as each segment is not fully interrogated. There appears to be some dropout of the lateral wall LVEF is estimated to be 55-60%, lasix drip continued. Patient fever deverfesced on 05/22 and he has been afebrile since, despite antibiotics and lasix drip his work of breathing did not improve, he continued to have rales requiring at least 4 L oxygen to maintain 92% when lying still; his oxygen would desat to as low as 86% with any small movement. 05/22 Lasix drip dcd, Dr. Whalen, pulmonology consulted. CRP was greater than 25 at this time with repeat imaging revealing No significant interval change in pulmonary opacities as described above, most consistent with pulmonary edema. Of note, superimposed infection, particular at the left base cannot be excluded, showing no improvement despite vanco and levquin. On 05/23 Dr. 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 The CT is less suggestive of acute hypersensitivity pneumonitis and certainly even less suggestive of sarcoidosis. The presentation is also more in line with SENIOR MECHANICAL TECHNICIAN. Post-viral bronchiolitis obliterans is certainly a consideration, although his extensive viral panel is negative. Aspiration does not seem clinically a likely etiology to trigger the SENIOR MECHANICAL TECHNICIAN. He has not started any new medications. High dose methylprednisone 60 mg q 8 hours was started per recommendations along with Bactrim three times a week. He finished a 5 day course of levquin and vancomycin. Despite steroid dosing patient oxygen demands increased. He was placed on high mak at 40% for oxygen level 92. He continued to have rales, with areas of diminished lung sounds and clear sounds, with severe YOU. Pulmonary recommendation also if steroids not improving symptoms patient would need CT flex scope with biopsy. Over the course of the last three days oxygen demand has increased even more, on 05/24 steroid dosing increased from 60 mg q 8 to 80 mg q 8 hours. On 05/25 patient oxygen demand increased and hi-mak increased to 55-60% oxygen at rest saturation 92-94% with exertion saturation would decrease to 88%. Patient would become tachypenic any time he would move and could never fully take a deep breath even at rest. Methylprednisone dcd and solucortef 100 mg q 4 h started based on guideline recommendations from up to date. Despite increase in steroid dosing and frequency patient continue to require higher oxygen, and continues to state I can not fully take a deep breath. Today patient sat up from lying position and became tachypenic with severe SOB, and chest pain / with the feeling an elephant was sitting on his chest. Stat EKG revealing NSR at 71, 2 nitro given with relief of CP and troponin negative. CXR Opacities in the right upper lobe and left mid lung and left base may represent atelectasis or pneumonia. Cardiomegaly and mild vascular prominence may represent interstitial edema, with no improvement from 05/22. Saturation was unable to be maintained greater than 88% on hi-mak at 55-60 and nebulizer. Bipap initiated with improvement in oxygenation at 94%. Patient feels comfortable at this time. CRP 5.66. For this reason [facility] was contacted for transfer. He has been accepted by Dr. Packer for admission. Due to work of breathing, increase in oxygen demands despite high dose steroids, and pulmonology recommendations for further testing he would benefit from transfer to a tertiary center. He will likely require a bronchoscopy to manage him medically. Home Meds and New Rx's Prescriptions: Continued aripiprazole [Abilify] 2 mg tablet 2 mg PO DAILY RF: 0 ibuprofen 600 mg tablet 600 mg PO TID PRN (Reason: pain) Qty: 270 RF: 3 acetaminophen 500 mg tablet 1,000 mg PO Q8H PRN (Reason: pain) Qty: 90 RF: 3 ranitidine HCl 150 MG capsule 150 mg PO DAILY RF: 0 tamsulosin [Flomax] 0.4 MG capsule 0.4 mg PO QAM RF: 0 allopurinol 300 MG tablet 300 mg PO QAM RF: 0 donepezil [Aricept] 10 mg Tablet 5 mg PO DAILY RF: 0 docusate sodium [Colace] 100 mg Capsule 100 mg PO DAILY RF: 0 hydrochlorothiazide 25 mg Tablet 25 mg PO DAILY RF: 0 sertraline [Zoloft] 100 mg tablet 100 mg PO DAILY RF: 0 Discharge Instructions Instructions: Bronchiolitis (DC), Acute Respiratory Distress Syndrome (DC) Additional Instructions: Your are being transferred to a higher level of care. Stand Alone Forms: Nursing Discharge Form Activity:: Activity as Tolerated Diet:: As Tolerated Discharge Orders Discharge Orders: Discharge Order (Routine); Ordered 05/26/19 Ordered By: Dior Barahona DS: Summary Status at Discharge Functional status at discharge: independent ambulation Overall status at discharge: patient is not back to baseline Mental Status: mental status grossly normal Speech and Movement: speech and movement normal Mood: congruent mood Affect: normal affect Exam Narrative Exam Narrative: General: Elderly man, laying in bed on hi mak cannula, appears toxic. Sat up in bed and has increased work of breathing HEENT: Normocephalic, atraumatic, pupils symmetrical and round, EOMI, mucous membranes moist. Neck: Supple, no JVD. Cardiovascular: Heart has regular rate rhythm, non-tachycardic, no murmur appreciated. Respiratory: Respirations appear even and unlabored at rest. Dry cough induced by deep breathing. Diminished, but clear. GI: Normoactive bowel sounds, abdomen soft, nontender on palpation, nondistended. Extremities: No clubbing, cyanosis or edema. Pedal pulses palpable bilaterally. Psych Mental Status: mental status grossly normal Speech and Movement: speech and movement normal Mood: congruent mood Affect: normal affect DS: Data Vitals/I&O Vitals and I&O: Vital Signs Temperature 37.0 C 05/26/19 11:44 Temperature Source Temporal Artery Scan 05/26/19 11:44 Pulse 98 H 05/26/19 11:44 Pulse Rhythm Regular 05/26/19 08:15 Pulse 94 H 05/17/19 14:31 Respiratory Rate 20 05/26/19 11:44 Respiratory Effort Labored 05/26/19 10:55 Respiratory Depth Normal 05/26/19 08:15 Respiratory Pattern Tachypnea 05/26/19 08:15 Blood Pressure 136/58 L 05/26/19 11:44 Blood Pressure Mean 77 05/17/19 14:31 Blood Pressure Position Supine 05/17/19 10:04 Pulse Oximetry 98 05/26/19 11:44 Oxygen Delivery Method Bi-pap 05/26/19 11:44 Oxygen Flow Rate 40 05/26/19 07:56 Fraction of Inspired Oxygen (FIO2) 50 05/26/19 11:44 Pain Level 6 05/26/19 11:05 Comment 05/26/19 11:44 Intake & Output 05/25/19 05/26/19 05/26/19 23:59 11:59 23:59 Intake Total 1500 / 2175 910 / 910 Output Total 460 / 660 650 / 650 Balance 1040 / 1515 260 / 260 Weight 96.4 kg Intake: IV Oral 1480 / 2155 890 / 890 Output: Urine 460 / 660 650 / 650 Other: Urine Color Yellow Yellow Urine Appearance Clear Clear Urine Odor None Normal Stool Size Moderate Stool Characteristics Soft Liquid Voiding Methods Urinal Bedside Commode Data Completed and Pending Completed studies during hospitalization [Text1]: Exam(s) a RAD:XR chest 2V PA & lateral EXAM: XR CHEST 2V PA LATERAL INDICATION: cough. COMPARISON: CHEST 2 VIEWS PA,LAT from 05/24/2015 TECHNIQUE: 2D digital imaging was performed. FINDINGS: The heart is within normal limits given the AP projection. Pulmonary vasculature appears within normal limits. There is a diffuse increased interstitial process. No focal consolidating infiltrates are seen. No effusion or pneumothorax is present. 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 IMPRESSION: Mild prominent interstitial markings. While this may be chronic, an acute interstitial pneumonia or edema cannot be excluded. Exam(s) a RAD:XR chest 2V PA & lateral EXAM: XR CHEST 2V PA LATERAL INDICATION: Low saturation,SEPSIS COMPARISON: XR CHEST 2V PA LATERAL from 05/17/2019 CT CHEST PE CTA from 05/19/2019 TECHNIQUE: 2D digital imaging was performed. FINDINGS: The heart size is within normal limits. The lungs are suboptimally inflated on both views. The lateral view is limited by respiratory motion. There are tiny bilateral pleural effusions. There are increased densities seen in the right upper lobe as well as left upper and lower lobes when compared with the previous exam. Chronic interstitial fibrosis is again noted. IMPRESSION: Bilateral infiltrates. Exam(s) PROCEDURE INFORMATION: Exam: XR Chest, 2 Views Exam date and time: 05/19/2019 11:10 AM Age: 78 years old Clinical history: Cough and shortness of breath; Patient HX: Worsening SOB, fever, low saturation TECHNIQUE: Imaging protocol: XR of the chest Views: 2 views. COMPARISON: CR XR CHEST 2V PA LATERAL 05/17/2019 11:24 AM FINDINGS: Lungs: Hazy opacification of the right upper lobe and left lung with parahilar fullness and indistinct pulmonary vasculature. More confluent left basilar opacities. Pleural space: Unremarkable. No pleural effusion. No pneumothorax. Heart/Mediastinum: Cardiomegaly. Vasculature: Calcified tortuous aorta. Bones/joints: DISH of the thoracic spine. No acute osseous findings. IMPRESSION: Constellation of findings most likely suggest decompensated cardiogenic pulmonary edema; however, cannot exclude underlying infectious process in the proper clinical setting. Exam(s) a CT:CT chest PE CTA EXAM: CT CHEST PE CTA CLINICAL HISTORY: worsening SOB, fever TECHNIQUE: Post IV contrast. Axial CT angiography was performed with multi-slice acquisition and multi-planar and/or 3D reconstructions. COMPARISON: ABD PELVIS WITH CONTRAST from 12/17/2009 FINDINGS: There is no evidence of pulmonary emboli or aortic dissection. The aorta shows calcification and is normal in diameter. Coronary artery calcifications are seen. There is no pericardial effusion. There is some enlargement of the main pulmonary artery and main left and right pulmonary arteries. The heart appears mildly enlarged. No emboli are seen. There are tiny bilateral pleural effusions, left greater than right. There are bilateral pulmonary infiltrates, with some consolidation at the left lung base and both upper lobes. There are some underlying emphysematous changes as well as interstitial changes. Changes of DISH are seen throughout the spine. IMPRESSION: Tiny bilateral effusions and bilateral pulmonary infiltrates. Findings could represent asymmetric pulmonary edema versus infection or inflammatory pneumonia. Exam(s) PROCEDURE INFORMATION: Exam: CT Angiography Chest Without And With Contrast Exam date and time: 05/19/2019 11:33 AM Age: 78 years old Clinical history: Fever and shortness of breath; Patient HX: Worsening SOB, fever TECHNIQUE: Imaging protocol: Computed tomographic angiography of the chest without and with intravenous contrast. 3D rendering: MIP reconstructed images were created and reviewed. Radiation optimization: All CT scans at this facility use at least one of these dose optimization techniques: automated exposure control; mA and/or kV adjustment per patient size (includes targeted exams where dose is matched to clinical indication); or iterative reconstruction. Contrast material: OMNI-PAQUE 350; Contrast volume: 83 ml; Contrast route: IV; COMPARISON: CR XR CHEST 2V PA LATERAL 05/19/2019 11:04 AM FINDINGS: Pulmonary arteries: No pulmonary emboli. Enlargement of the main pulmonary artery. Aorta: The aorta demonstrates moderate atherosclerotic calcification. Lungs: Diffuse bilateral ground-glass attenuation with interlobular septal thickening as well as interstitial thickening. Slight consolidation of the right lung base. Pleural space: Trace bilateral pleural effusions (left greater than right). No pneumothorax. Heart: Cardiomegaly. No pericardial effusion. There is mild atherosclerotic calcification of the coronary arteries. Mediastinum: Asymmetrical thickening of the distal esophagus versus small hiatus hernia. There is a small paraesophageal lymph node. Enlarged mediastinal lymph nodes could be reactive. Upper Abdomen: There is a diffuse decrease in hepatic parenchymal density, consistent with fatty infiltration. Right upper pole 4 cm fluid density renal cyst. The remainder of the visualized upper abdomen is unremarkable. Bones/joints: DISH of the thoracic spine. No acute fracture. No concerning osseous lesion. Soft tissues: Unremarkable. IMPRESSION: No pulmonary embolus. Constellation of findings again mostly suggest decompensated pulmonary edema; however, cannot exclude underlying infectious process in the proper clinical setting. Enlarged mediastinal lymph nodes are likely reactive. Recommend imaging follow-up to resolution. Conclusion Left Ventricle : The left ventricle is normal. Mild concentric left ventricular hypertrophy. The left ventricular diastolic function is normal. Left ventricular systolic function is normal. Unable to evaluate entirely for wall motion abnormalities without contrast as each segment is not fully interrogated. There appears to be some dropout of the lateral wall LVEF is estimated to be 55-60%. Right Ventricle : The right ventricle is normal size. The right ventricular systolic function is normal. Atria : Left atrium is top normal in size. The right atrium size is normal. Aortic Valve : The Aortic valve is sclerotic with focal thickening. Aortic valve is trileaflet. No aortic regurgitation is present. There is no aortic valvular stenosis. Mitral Valve : Mild mitral annular calcification. Trivial to Mild mitral regurgitation. No evidence of mitral valve stenosis. Tricuspid Valve : Tricuspid valve is not well visualized. Trace tricuspid regurgitation. Great Vessels : The IVC appears small, and collapses >50% with inspiration. There is not enough of a TR jet to estimate RVSP. Compared to echocardiogram dated 03/24/2017 there does not appear to be any significant change. Exam(s) a RAD:XR chest 2V PA & lateral EXAM: XR CHEST 2V PA LATERAL INDICATION: ongoing hypoxia, shortness of breath with activity. COMPARISON: XR CHEST 2V PA LATERAL from 05/17/2019 CT CHEST PE CTA from 05/19/2019 TECHNIQUE: 2D digital imaging was performed. FINDINGS: The heart is enlarged. There is minimal blunting at the right costophrenic angle. The lungs are not well inflated. There are underlying interstitial changes. Superimposed infiltrates are seen greatest in the right upper and left lower lobes. Findings appear stable. PROCEDURE INFORMATION: Exam: XR Chest, 2 Views Exam date and time: 05/22/2019 4:39 PM Age: 78 years old Clinical history: Patient HX: Ongoing hypoxia, shortness of breath with activity TECHNIQUE: Imaging protocol: XR of the chest Views: 2 views. COMPARISON: CR XR CHEST 2V PA LATERAL 05/19/2019 11:04 AM FINDINGS: Lungs: No significant interval change in hazy opacification in the right upper incomplete left lung with prominent interstitial markings. More confluent left basilar opacities also appear unchanged. Pleural space: Unremarkable. No pleural effusion. No pneumothorax. Heart/Mediastinum: Unremarkable. No cardiomegaly. Bones/joints: Unremarkable. IMPRESSION: No significant interval change in pulmonary opacities as described above, most consistent with pulmonary edema. Of note, superimposed infection, particular at the left base cannot be excluded. PROCEDURE INFORMATION: Exam: XR Chest, 1 View Exam date and time: 05/26/2019 10:55 AM Age: 78 years old Clinical history: Other: Chest pain TECHNIQUE: Imaging protocol: XR of the chest Views: 1 view. COMPARISON: CR XR CHEST 2V PA LATERAL 05/22/2019 4:36 PM FINDINGS: Lungs: Opacities in the right upper lobe and left mid lung and left base may represent atelectasis or pneumonia. Pleural space: There may be minimal left pleural effusion Heart/Mediastinum: Cardiomegaly and mild vascular prominence may represent interstitial edema. Bones/joints: Plate and screws in the cervical spine Degenerative changes in the glenohumeral joints Other findings: Overlying EKG wires IMPRESSION: 1. Opacities in the right upper lobe and left mid lung and left base may represent atelectasis or pneumonia. 2. Cardiomegaly and mild vascular prominence may represent interstitial edema Labs on day of discharge: Labs from last 24 hours 05/26/19 05/26/19 05/26/19 Unknown 11:15 10:54 WBC RBC Hgb Hct MCV MCH MCHC RDW Plt Count MPV Immature Gran % Neutrophils % Lymphocytes % Monocytes % Eosinophils % Basophils % Absolute Neutrophils Absolute Lymphocytes Absolute Monocytes Absolute Eosinophils Absolute Basophils Sample Site Pending pCO2 Pending pO2 Pending O2 Saturation Pending ABG pH Pending ABG HCO3 Pending ABG Total CO2 Pending ABG Base Excess Pending Sodium Potassium Chloride Carbon Dioxide Anion Gap BUN Creatinine Estimated GFR/1.73 m2 Glucose Calcium Magnesium Troponin I < 0.05 Pending Beta-(1,3)-D-Glucan 05/26/19 05/26/19 05/26/19 08:30 08:03 08:03 WBC 15.80 H RBC 3.53 L Hgb 11.5 L Hct 34.4 L MCV 97.5 H MCH 32.6 MCHC 33.4 RDW 12.6 Plt Count 457 H MPV 10.0 Immature Gran % 2.8 Neutrophils % 81.2 Lymphocytes % 7.3 Monocytes % 8.5 Eosinophils % 0.0 Basophils % 0.2 Absolute Neutrophils 12.83 H Absolute Lymphocytes 1.15 L Absolute Monocytes 1.34 H Absolute Eosinophils 0.00 Absolute Basophils 0.03 Sample Site pCO2 pO2 O2 Saturation ABG pH ABG HCO3 ABG Total CO2 ABG Base Excess Sodium 140 Potassium 4.1 Chloride 107 Carbon Dioxide 23.0 Anion Gap 10.0 BUN 34 H Creatinine 1.03 Estimated GFR/1.73 m2 >= 60.00 Glucose 164 H Calcium 8.3 L Magnesium 2.4 Troponin I Beta-(1,3)-D-Glucan Pending [facility] Medical History Arthritis (Chronic) Back pain (Acute) Cervical stenosis of spine (Chronic) Dementia (Chronic) Depression (Chronic) GERD (gastroesophageal reflux disease) (Inactive) Gout (Chronic) Hypertension Lumbar back pain with radiculopathy affecting left lower extremity (Chronic) 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) Surgical History Arthroscopy, Shoulder Bilateral Colonoscopy - MAC Hx of bilateral hip replacements (Chronic) Prosthesis, Penile implant Repair of umbilical hernia S/P cervical spinal fusion (Acute) Trochanteric bursitis of right hip (Acute) Injection: 08/30/18 S/P IT band release with excision osteophytes: 10/30/2018 Family History Daughter Asthma Anxiety Depression Daughter Anxiety Depression Mother Depression Diabetes Hypertension Father Heart disease Social History Smoking/Tobacco Use Status: Former Tobacco Use Quit Date: 06/12/89 Tobacco: How many years used: 33 Alcohol Intake: current Alcohol Intake frequency: a few times a week Alcohol type: beer and hard liquor Details: ocas beer Drug use: Never Substance use type: does not use Adopted: No Caregiver/Support person: No Foster care: No Household members: family Housing: house Number of Children: 2 Communication Needs: None Do you need help understanding health information?: Often 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
[2019-05-26] MEDS: LORazepam 2 MG/ML VIAL 0.5 MG IVP (12:23)
--- NOTE | 2019-05-26 14:06 | NUR.NOTE ---
Nursing Note:05/26/19 1057 This nurse came in and assessed pt as he was sitting on the side of the bed leaning over towards the foot of the bed. He notes that he could not catch his breath and he had 8/10 crushing chest pain. This nurse went out to Amira ROSAS and asked for a stat EKG and MD to be notified that pt had 8/10 chest pain. This nurse noted that pt was to be given a DUONeb to help with SOB. Dior Barahona NP came in shortly after and gave a verbal order for a Nitro 0.4 mg which was given at 1100 and his baseline blood pressure was 145/70. At 1103 his BP was 124/58, p70, 88% on 55% FiO2 on Hi flow. He noted that he was still having 6/10 CP and Dior gave a verbal order for another Nitro and the EKG was obtained. 1105 the second nitro was given and a BP of 120/57, p 69 sat 90% on 63% FiO2 High flow. Pt noted that this was helping and he was at 6/10 still, but decreasing. At 1112 pt BP was 108/60, pulse 69, 87% on 63% FiO2 High flow and Tele was placed. 1125 Stat CXray was obtained as was the Trop from lab. BiPAP was also placed at this time 10/5cm/H2O and 100% FiO2 to start. Pt was eventually titrated down to 50% FiO2 and kept comfortably there. At 1145, pt noted pain was still there and all but gone but did not give a number. He was able to breathe much more comfortably by this time. There was a stat order for Lorazepam that was also given. Dior Barahona NP communicated with [facility] again and they accepted the pt after seeing the images and labs. Arrangements were then made for transport.
--- NOTE | 2019-05-28 09:15 | INDS_ITS ---
Date of service: 05/28/19 Time of Service: 09:15 PT Notes Visit Reasons: SEPSIS DUE TO COMMUNITY ACQUIRED PNEUMONIA Inpatient Physical Therapy Discharge Summary Dates: 05/27/2019 Dates of Service: 05/21/2019 through 05/24/2019 This is a clinical summary of care provided on the duration of dates listed above. No charge was made in the completion of this documentation. Referring Doctor: Adri Hernandez MD PT Orders: PT CONSULT: Limited ability Precautions: Fall. Droplet precautions. Activity as tolerated. Patient Profile/Admitting Diagnosis: Patient is a 78-year-old male who presented to the ED on 05/17/2019 with chief complaints of cough, fever, and shortness of breath. Patient is diagnosed with sepsis due to community-acquired pneumonia. 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 He was independent with all aspects of ADLs prior to admission. He did not use any assistive ambulatory device. Equipment Owned/DME: None Subjective: NT Objective: General Observation: NT Mental Status: NT Pain: NT ROM: Right Upper Extremity: Shoulder Flexion WFL. Shoulder abduction WFL. Elbow flexion WFL. Wrist flexion WFL. Opening and closing of hand WFL. Left Upper Extremity: Shoulder Flexion WFL. Shoulder abduction WFL. Elbow flexion WFL. Wrist flexion WFL. Opening and closing of hand WFL. Right Lower Extremity: Hip flexion WFL. Hip abduction WFL. Knee flexion WFL. Ankle dorsiflexion WFL. Ankle plantarflexion WFL. Left Lower Extremity: Hip flexion WFL. Hip abduction WFL. Knee flexion WFL. Ankle dorsiflexion WFL. Ankle plantarflexion WFL. Strength: Right Upper Extremity: Shoulder flexors 3+/5. Shoulder abductors 3+/5. Elbow flexors 3+/5. Elbow extensors 3+/5. Information Technology Assistant strong. Left Upper Extremity: Shoulder flexors 3+/5. Shoulder abductors 3+/5. Elbow flexors 3+/5. Elbow extensors 3+/5. Information Technology Assistant strong. Right Lower Extremity: Hip flexors 4-/5. Hip abductors 4-/5. Knee flexors 4-/5. Knee extensors 4-/5. Ankle dorsiflexors 4-/5. Ankle plantarflexors 4-/5. Left Lower Extremity:Hip flexors 4-/5. Hip abductors 4-/5. Knee flexors 4-/5. Knee extensors 4-/5. Ankle dorsiflexors 4-/5. Ankle plantarflexors 4-/5. Sensation: Intact as to pain and pressure on bilateral lower extremities. Bed Mobility/Transfers: Rolling independent Supine to sit independent Sit to supine held per MD Sit to stand patient held per MD Stand to sit patient held per MD Bed to chair patient held per MD Chair to bed patient held per MD Gait: held per MD Balance: Static Sitting: Fair Dynamic Sitting: Fair Static Standing: NT Dynamic Standing: NT Assessment: Patient is sent to [facility] for management of worsening symptoms. Patient is a 78-year-old male who presented to the ED on 05/17/2019 with chief complaints of cough, fever, and shortness of breath. Patient is diagnosed with sepsis due to community-acquired pneumonia. Patient is significantly limited right now due to current medical diagnosis and was unable to participate in mobility assessment. He is independent with all ADL performance prior to admission. is a good support. His prognosis for regaining prior level of function is fair. Patient continues to present with clinical signs and symptoms consistent with current/admitting diagnoses that have resulted to mobility limitations, gait instability, generalized weakness, and impairment of motor control as demonstrated by the following impairment level findings: 1. Decreased strength to B LE major muscle groups 2. Impaired sitting/standing balance 3. Impaired activity tolerance Impairments continue to contribute to the following functional limitations: 1. Dependent bed mobility skills 2. Increased dependence with transfers 3. Inability to safely ambulate without assistive device and physical assistance 4. Increase completion time for mobility ADL performance 5. Increased fall risk 6. Inability to negotiate steps alone safely Goals: Goals X1 week 1. Supine-Sit independent MET 2. Sit-Supine independent MET 3. Sit-Stand independent NOT MET 4. Stand-Sit independent NOT MET 5. Bed-Chair independent NOT MET 6. Chair-Bed independent NOT MET 7. Independent gait on level surface with use of least restrictive device for at least 300 feet without report of pain nor dyspnea NOT MET 8. Independent stair negotiation while holding onto bilateral rails for at least 10 steps without report of pain nor dyspnea NOT MET 9. Independent with home exercise program NOT MET 10. Good static and dynamic standing balance/tolerance NOT MET DISCHARGE RECOMMENDATIONS: Patient will benefit from home health PT services in order to progress mobility level using front wheeled walker, assess home safety, identify additional equipment needs, and establish a functional maintenance program that will increase ability of patient to remain at home. TREATMENT CODE/TIME: NC. Thank you very much for this referral. Radha Copeland PT, DPT, CLT [facility] [place], [place]
--- NOTE | 2019-05-28 09:29 | INDS_ITS ---
Date of service: 05/28/19 Time of Service: 09:29 PT Notes Visit Reasons: SEPSIS DUE TO COMMUNITY ACQUIRED PNEUMONIA Inpatient Physical Therapy Discharge Summary Dates: 05/28/2019 Dates of Service: 05/27/19 This is a clinical summary of care provided on the duration of dates listed above. No charge was made in the completion of this documentation. Referring Doctor: Dior Barahona NP PT Orders: PT CONSULT: Evaluate and Treat Precautions: Standard Patient Profile/Admitting Diagnosis: Orders received for this 58 year old male with a hx of cognitive delay. He was seen in the ED a few days ago and diagnosed with UTI and sent home with outpatient antibiotics. He returned later to the ED with increasing weakness and confusion and possibility of a fall although not witnessed. HE has been admitted for monitoring and for medical management. OT evaluation was completed right before this evaluation. PMHX: Cerebral palsy, epilepsy, dysphagia and Hyperlipidemia Social History/Home Situation: Lives at home with the assistance of caregiver Current Functional Limitations: Ambulation limits on distance Equipment Owned/DME: N/A Subjective: NT Objective: General Observation: NT Mental Status: NT Pain: NT ROM: Right Upper Extremity: Shoulder flexion to 130, elbow WNL, wrist WNL Left Upper Extremity: Shoulder flexion to about 100, elbow WNL, wrist WNL Right Lower Extremity: WFL to hip, knee, and ankle Left Lower Extremity: WFL to hip, knee, and ankle Strength: Right Upper Extremity: Shoulder flexion 4+/5 mild pain bilaterally, biceps 5/5, triceps, 5/5, supervisor wall mirror department strength is strong Left Upper Extremity: Shoulder flexion 4+/5 mild pain bilaterally, biceps 5/5, triceps, 5/5, supervisor wall mirror department strength is strong Right Lower Extremity: hip flexion 4+/5, quads 5/5, hamstrings 5/5, dorsiflexion 5/5, plantarflexion 5/5 Left Lower Extremity: hip flexion 4+/5, quads 5/5, hamstrings 5/5, dorsiflexion 5/5, plantarflexion 5/5 Sensation: Patient intact to light touch and sensation through upper and lower extremty dermatomes. Motor control intact through functional myotomes and patient intact to proprioception and kinesthetic awareness Bed Mobility/Transfers: Patient does require a whole lot of assistance. He is mainly confused and needs hand hold contact guard for guidance and for safety direction. Gait: Ambulation to 40 feet with CGA no device needed Balance: Static Sitting: Normal Dynamic Sitting: Good Static Standing: Good Dynamic Standing: Fair Assessment: Patient is a 58 year old male referred to physical therapy services with the diagnosis of UTI and confusion. Patient presents with clinical signs and symptoms consistent with this diagnosis, as demonstrated by the following impairment level findings: Confusion, assistance needed with transfers and gait, ambulation intolerance. Impairments are contributing to the following functional limitations: AMPAC score. 28.97% Goals: Goals X1 week 1. Supine-Sit Independent NOT MET 2. Sit-Supine Independent NOT MET 3. Sit-Stand Independent NOT MET 5. Bed-Chair Independent NOT MET 6. Chair-Bed Independent NOT MET 7. Gait Independent up to 300 feet NOT MET DISCHARGE RECOMMENDATIONS: To home in care of home care coordinator once medically stable TREATMENT CODE/TIME: NT Thank you very much for this referral. Radha Copeland PT, DPT, CLT [facility]
== END 2019-05-26 13:35 | disposition short-term general hospital (02) | DRG 193 ==
LOC: ER 13:58 → MS 14:48
PROVIDERS: Nurse Practitioner; Nurse Practitioner Family; Admitting Provider Internal Medicine; Emergency Provider Student in an Organized Health Care Education/Training Program; PCP Family Medicine; Visit Provider Family Medicine
DX: J18.1 Lobar pneumonia, unspecified organism (principal); J81.0 Acute pulmonary edema; N17.9 Acute kidney failure, unspecified; J84.116 Cryptogenic organizing pneumonia; J98.11 Atelectasis; I50.30 Unspecified diastolic (congestive) heart failure; J06.9 Acute upper respiratory infection, unspecified; R09.02 Hypoxemia; R07.9 Chest pain, unspecified; R00.0 Tachycardia, unspecified; F03.90 Unspecified dementia, unspecified severity, without behavioral disturbance, psychotic disturbance, mood disturbance, and anxiety; M54.17 Radiculopathy, lumbosacral region; K21.9 Gastro-esophageal reflux disease without esophagitis; F32.9 Major depressive disorder, single episode, unspecified; I11.0 Hypertensive heart disease with heart failure; R53.83 Other fatigue
CPT/HCPCS: 36410; 36415; 71275; 80048; 80053; 82805; 84145; 87040; 87449; 87632; 93005; 93306; 94640; 96365; 96367; 97110; 97162; 97530; 99223; 99232; 99233; 99239; 99285; J1650; 36600; 71045; 71046; 80202; 83605; 83735; 83880; 84484; 85025; 86140; 87450; 87581; 93010; 94660; J0456; J0696; J1720; J1940; J1941; J1956; J2060; J2930; J3370; J7613; J7620